=== PATIENT | female | born 1955 | race Caucasian/White ===

== ENCOUNTER 2022-09-29 17:20 | Outpatient (OUT) | payer MEDICARE, OTHER, SELFPAY ==
[2022-09-29 19:02] LABS: Eosinophils Absolute Auto 0.1 10^3/uL (0.0-0.7); Hematocrit 44.7 % (36.0-48.0); Hemoglobin 14.5 g/dL (12.0-16.0); Immature Granulocytes Abs Auto 0.01 10^3/uL (0.00-0.03); Immature Granulocytes Pct Auto 0.2 % (0.0-0.5); Lymphocytes Percent Auto 25.6 % (20.5-60.0); Mean Corpuscular HGB Conc 32.4 g/dL (29.9-35.2); Mean Corpuscular Hemoglobin 30.3 pg (26.7-34.0); Mean Corpuscular Volume 93.3 fL (81.0-99.0); Mean Platelet Volume 11.8 fL (9.5-13.5); Monocytes Absolute Auto 0.4 10^3/uL (0.3-0.8); Monocytes Percent Auto 8.6 % (1.7-12.0); Neutrophils Absolute Auto 2.5 10^3/uL (1.4-6.5); Neutrophils Percent Auto 62.6 % (43.0-75.0); Platelet Count 224 10^3/uL (150-450); Red Blood Count 4.79 10^6/uL (4.20-5.40); Red Cell Distribution Width 12.4 % (11.0-15.0); White Blood Count 4.1 10^3/uL (4.0-11.0)
[2022-09-29 21:10] LABS: Alanine Aminotransferase 20 U/L (14-59); Alkaline Phosphatase 73 U/L (46-116); Anion Gap 9.4; Aspartate Amino Transferase 17 U/L (15-37); BUN Creatinine Ratio 15.7; Bilirubin Total 0.7 mg/dL (0.2-1.0); Carbon Dioxide 26.9 mmol/L (21.0-32.0); Chloride 106 mmol/L (98-107); Estimated GFR (African America >60 (>=60); Estimated GFR (Non-African Ame >60 (>=60); Glucose 91 mg/dL (74-106); Potassium 4.3 mmol/L (3.5-5.1); Sodium 138 mmol/L (136-145); Thyroid Stimulating Hormone 2.318 uIU/mL (0.358-3.740)
== END 2022-09-29 17:21 | disposition home or self-care (01) ==
PROVIDERS: Visit Provider Family Medicine
DX: M19.90 Unspecified osteoarthritis, unspecified site (principal); F32.A Depression, unspecified
CPT/HCPCS: 36415; 80053; 84436; 84443; 85025

== ENCOUNTER 2023-08-08 19:48 | Outpatient (REF) | payer MEDICARE, OTHER, SELFPAY | END 2023-08-08 19:49 | disposition home or self-care (01) | LOC: LAB 19:48 | PROVIDERS: Visit Provider Obstetrics & Gynecology | DX: Z01.419 Encounter for gynecological examination (general) (routine) without abnormal findings (principal) | CPT/HCPCS: G0145 ==

== ENCOUNTER 2023-08-22 08:59 | Outpatient (OUT) | payer MEDICARE, OTHER, SELFPAY ==
--- NOTE | 2023-08-22 09:01 | MM_ITS ---
Patient Name: MARYCRUZ BROUSSARD MR#: [id number] : 1955 Exam Date: 08/22/2023 Ordering Doctor: DR Manny Barker . RADIOLOGY REPORT PROCEDURE: MM TOMOSYNTHESIS SCREENING BI COMPARISON: MG MAMM SCREEN 3D DELMA CAD, 08/04/2022. MG MAMM SCREEN 3D DELMA CAD, 09/15/2020. MG MAMM SCREEN DELMA W CAD, 12/08/2018. MG MAMM DELMA SCRN W CAD DIG, 03/16/2011. INDICATIONS: Screening Calculator Name NCI Breast Cancer Risk Assessment Tool 5 Year Breast Cancer Risk 1.20% Lifetime Breast Cancer Risk 4.20% Personal Breast Cancer No Personal Ovarian Cancer No Treatments None Family Cancers Mother with lung cancer at age 57; Father with breast cancer at age 76; Father with bladder/prostate cancer at age 76. LOCATION: [facility] [place] BREAST COMPOSITION: The breasts are heterogeneously dense,which may obscure small masses. FINDINGS: DIAGNOSTIC CATEGORY 1--NEGATIVE. RIGHT BREAST: No significant suspicious finding. No significant change has occurred. LEFT BREAST: No significant suspicious finding. No significant change has occurred. RECOMMENDATIONS: ROUTINE MAMMOGRAM AND CLINICAL EVALUATION IN 12 MONTHS. PLEASE NOTE: A NORMAL MAMMOGRAM DOES NOT EXCLUDE THE POSSIBILITY OF BREAST CANCER. A CLINICALLY SUSPICIOUS PALPABLE LUMP SHOULD BE BIOPSIED. Dictated by: Ramirez Beverly M.D. on 08/23/2023 at 14:26 Approved by: Ramirez Beverly M.D. on 08/23/2023 at 14:28
--- OUTSIDE RECORDS SUMMARY | 2023-08-22 09:21 | XMS_ITS | CCD ---
Author Organization [facility] Care Team Providers Care Cigar Roller Name Role Phone Jose Miguel Phillips Primary Care Physician EDMOND ., DR MITCHELL Admitting Unavailabl e KARASIK ., DR MITCHELL Attending Unavailabl e KARASIK ., DR MITCHELL Consulting Unavailabl e HELENA, DR GILLESPIE Primary Care Unavailable WATERFALL, DR ANTONY Maldonado Consulting Unavailable HELENA, DR GILLESPIE Consulting Unavailable HELENA, DR GILLESPIE Primary Care Unavailable HELENA, DR GILLESPIE Admitting Unavailable HELENA, DR GILLESPIE Attending Unavailable ZIEBBRENDAN QUICK Consulting Unavailable HELENA, DR GILLESPIE Attending Unavailable HELENA, DR GILLESPIE Consulting Unavailable HELENA, DR GILLESPIE Primary Care Unavailable HELENA, DR GILLESPIE Admitting Unavailable KARASIK ., DR MITCHELL Attending Unavailabl e KARASIK ., DR MITCHELL Consulting Unavailabl e KARASIK ., DR MITCHELL Admitting Unavailabl e JACQUELINE, DR GILLESPIE Primary Care Unavailable Jacqueline, DO Gillespie Primary Care Provider MD Jose Gutierrez Attending Provider [phone] Jose Miguel Phillips Primary Care Unavailable Jose Gutierrez Admitting Unavailable Jose Gutierrez Attending Unavailable NO FAMILY, PHYSICIAN Primary Care Unavailable Mario Chavez Admitting Unavailable Mario Chavez Attending Unavailable NA, CARLY T Attending Unavailable APLING, RIVAS B Referring Unavailable BLACKSTON, CARLY T Attending Unavailable APLING, RIVAS B Referring Unavailable BLACKSTON, CARLY T Attending Unavailable APLING, RIVAS B Referring Unavailable BLACKSTON, CARLY T Attending Unavailable APLING, RIVAS B Referring Unavailable CYNTHIA ALVARADO Attending Unavailable DANIELLE SANTORO Primary Care Physician Gio PECK Attending Unavailable DANIELLE SANTORO Primary Care Unavailable Gio PECK Admitting Unavailable Gio PECK Attending Unavailable DANIELLE SANTORO Primary Care Unavailable Gio PECK Admitting Unavailable Gio PECK Attending Unavailable Gio PECK Attending Unavailable Allergies Allergy Classification Reported Allergen(s) Allergy Type Date of Onset Reaction(s) Facility (1 source) No Known Medication Allergies; Translations: [No Known Medication Allergies] Propensity to adverse reactions (disorder) [facility] Repository Medications Current Medications Medication Drug Class(es) Dates Sig (Normalized) Sig (Original) alendronic acid 70 mg oral tablet (3 sources) Bisphosphonate Start: 08-25-2022 take 70 mg by mouth every week Alendronate Active 70 MG PO every week December 01, 2022 12:00am citalopram 20 mg oral tablet (4 sources) Serotonin Reuptake Inhibitor Start: 12-01-2022 take 20 mg by mouth once daily Citalopram Active 20 MG PO Daily December 01, 2022 12:00am Start: 12-08-2018 take 1 tablet by kody th once daily citalopram 10 mg Tab 10 mg = 1 tab(s), Oral, Daily Start Date: 12/08/18 Status: Ordered diclofenac sodium 50 mg delayed release oral tablet (1 source) Nonsteroidal Anti-inflammatory Drug Start: 12-08-2018 take 1 tablet by mouth twice daily Diclofenac 50mg Tab-DR 50 mg, Oral, BID Start Date: 12/08/18 Status: Ordered estradiol 1 mg oral tablet (5 sources) Estrogen Start: 08-25-2022 take 1 mg by mouth once daily Estradiol Active 1 MG PO Daily December 01, 2022 12:00am Start: 08-25-2022 estradiol 0.1 mg/g Vag Crm Refill(s) 0 Start Date: 08/25/22 Status: Ordered meloxicam 15 mg oral tablet (3 sources) Nonsteroidal Anti-inflammatory Drug Start: 08-25-2022 take 15 mg by mouth once daily Meloxicam Active 15 MG PO Daily December 01, 2022 12:00am sulfamethoxazole 800 mg / trimethoprim 160 mg oral tablet (1 source) Dihydrofolate Reductase Inhibitor Antibacterial, Sulfonamide Antimicrobial Start: 12-30-2021 End: 01-04-2022 Bactrim DS 800 mg-160 mg Tab 1 tab(s), Oral, BID for 5 day(s), 10 tab(s), Refill(s) 0, [facility]/pharmacy #[id number], 162, cm, 12/30/21 12:22:00 EDT, Height/Length Dosing, 73.5, kg, 02/05/20 7:42:00 EST, Weight Dosing Start Date: 12/30/21 Stop Date: 01/04/22 Status: Ordered Completed/Discontinued Medications Medication Drug Class(es) Dates Sig (Normalized) Sig (Original) ciprofloxacin 500 mg oral tablet (5 sources) Quinolone Antimicrobial Start: 08-01-2023 take 1 tablet by mouth once daily Cipro 500 mg Tab 500 mg = 1 tab(s), Oral, Daily, Take 1 tablet the day before the procedure and 1 tablet after the procedure, # 2 tab(s), Refills(s) 0, Pharmacy: [facility]/pharmacy #[id number], 162, cm, 08/17/23 7:56:00 EDT, Height/Length Dosing, 80, kg, 08/17/23 7:56:00 EDT, Weight Dosing Start Date: 08/17/23 Status: Ordered Start: 08-17-2021 take 1 tablet by kody th once daily Cipro 500 mg Tab 500 mg = 1 tab(s), Oral, Daily, Take 1 tablet the day before the procedure and 1 tablet after the procedure, # 2 tab(s), Refills(s) 0, Pharmacy: [facility]/pharmacy #[id number], 162, cm, 08/05/20 12:19:00 EDT, Height/Length Dosing, 73.5, kg, 02/05/20 7:42:00 EST,... Start Date: 08/17/21 Status: Ordered Problems Active Problems Problem Classification Problem Date Documented Da te Episodic/Chronic Cancer of bladder (3 sources) Malignant neoplasm, overlapping lesion of bladder 02-19-2019 Chronic Cancer of bladder (1 source) History of malignant neoplasm of bladder; Translations: [Personal history of malignant neoplasm of bladder] Onset: 08-17-2023 Episodic Cancer; other and unspecified primary (3 sources) History of bladder neoplasm 12-08-2018 Episodic Genitourinary symptoms and ill-defined conditions (6 sources) Genitourinary symptoms; Translations: [Unspecified symptoms and signs involving the genitourinary system] Onset: 12-30-2021 Episodic Immunizations and screening for infectious disease (1 source) Encounter for screening for human papillomavirus (HPV); Translations: [ENC SCREENING HUMAN PAPILLOMAVIRUS] Onset: 07-29-2022 Episodic Mood disorders (3 sources) Depressive disorder 12-08-2018 Chronic Osteoporosis (1 source) Age-related osteoporosis without current pathological fracture; Translations: [AGE-REL OSTEOPOR W/O CURR PATH FX] Onset: 08-11-2022 Chronic Other bone disease and musculoskeletal deformities (1 source) Other specified disorders of bone density and structure, unspecified site; Translations: [OTH D/O BONE DEN STRUCT UNS SITE] Onset: 08-11-2022 Episodic Other diseases of bladder and urethra (2 sources) Lesion of bladder 08-17-2023 Chronic Other diseases of bladder and urethra (1 source) Disorder of bladder; Translations: [Bladder disorder, unspecified] Onset: 08-17-2023 Chronic Other gastrointestinal disorders (1 source) Change in bowel habit; Translations: [Change in bowel habit] Onset: 12-01-2022 Episodic Other screening for suspected conditions (not mental disorders or infectious disease) (8 sources) Encounter for screening mammogram for malignant neoplasm of breast; Translations: [Encounter for screening for malignant neoplasm of cervix] Onset: 07-26-2022 Episodic Residual codes; unclassified (1 source) Asymptomatic menopausal state; Translations: [ASYMPTOMATIC MENOPAUSAL STATE] Onset: 08-11-2022 Episodic Residual codes; unclassified (1 source) Family history of malignant neoplasm of trachea, bronchus and lung; Translations: [FAM HX MALIG NEOPLSM TRACH BRON LNG] Onset: 08-11-2022 Episodic Residual codes; unclassified (1 source) Family history of malignant neoplasm of prostate; Translations: [FAMILY HX MALIG NEOPLASM PROSTATE] Onset: 08-11-2022 Episodic Residual codes; unclassified (1 source) Family history of malignant neoplasm of bladder; Translations: [FAM HX MALIGNANT NEOPLASM BLADDER] Onset: 08-11-2022 Episodic Unclassified (4 sources) COUGH, UNSPECIFIED; Translations: [COUGH, UNSPECIFIED] Onset: 10-13-2021 Unclassified (1 source) Irritable bowel syndrome without diarrhea; Translations: [Irritable bowel syndrome without diarrhea] Onset: 01-14-2023 Past or Other Problems Problem Classification Problem Date Documented Da te Episodic/Chronic Malaise and fatigue (1 source) Other fatigue; Translations: [OTHER FATIGUE] Onset: 10-13-2021 Episodic Other connective tissue disease (1 source) Myalgia, unspecified site; Translations: [MYALGIA UNSPECIFIED SITE] Onset: 10-13-2021 Episodic Other lower respiratory disease (5 sources) Shortness of breath; Translations: [SHORTNESS OF BREATH] Onset: 10-09-2021 Episodic Other lower respiratory disease (1 source) Other forms of dyspnea; Translations: [OTHER FORMS OF DYSPNEA] Onset: 11-07-2021 Episodic Unclassified (1 source) COUGH, UNSPECIFIED; Translations: [COUGH, UNSPECIFIED] Onset: 11-04-2021 Results Test Name Value Interpretation Reference Range Facility Consent for Procedure/Surger yon 08-19-2023 Consent for Procedure/Surgery [id number]. 00TIFF [facility] Ambulatory Visit Summaryon 0 08-17-2023 Ambulatory Visit Summary STACIA PARK :1955 Visit Date:08/17/2023 Ambulatory Visit Instructions Your Diagnosis Personal history of bladder cancer Lesion of bladder Your Care Team Attending Physician - Gio PECK MD Primary Care Physician - DANIELLE SANTORO This Is Your Medications List ciprofloxacin (Cipro 500 mg Tab) Contact prescribing physician if questions or concerns alendronate (alendronate 70 mg Tab) citalopram (citalopram 10 mg Tab) estradiol (estradiol 1 mg Tab) estradiol topical (estradiol 0.1 mg/g Vag Crm) meloxicam (meloxicam 15 mg Tab) Procedures Performed Flexible cystoscope (08/17/2023), Cystoscopy (08/25/2022), Cystoscopy (09/01/2021), Cystoscopy (02/05/2020), Cystoscopy (08/21/2019), Instillation of BCG into the bladder (07/24/2018), Cystoscopy (05/01/2018), Laser bladder lesion therapy (08/23/2017), Cystoscopy and transurethral resection of bladder tumour (05/20/2016), Appendectomy, Colonoscopy, Hysterectomy, Tubal ligation. Discharge Vitals Temperature (Temporal Artery) 37 ?C Heart Rate (Peripheral) 71 Respiratory Rate 16 Blood Pressure 139/82 Height 162 cm Height 64 in Weight 80 kg Weight 176 lb BMI 30.48 What to do next You Need to Schedule the Following Appointments Follow Up with MASSIMO MEDEROS, SHELDON Maya When: Where: [facility] [address], [place] [address]- Medications What How Much When Instructions Unchanged ciprofloxacin (Cipro 500 mg Tab) 1 Tablets By Mouth Every day Take 1 tablet the day before the procedure and 1 tablet after the procedure Unchanged alendronate (alendronate 70 mg Tab) Contact prescribing physician if questions or concerns Unchanged citalopram (citalopram 10 mg Tab) 1 Tablets By Mouth Every day Contact prescribing physician if questions or concerns Unchanged estradiol (estradiol 1 mg Tab) Contact prescribing physician if questions or concerns Unchanged estradiol topical (estradiol 0.1 mg/ g Vag Crm) Contact prescribing physician if questions or concerns Unchanged meloxicam (meloxicam 15 mg Tab) Contact prescribing physician if questions or concerns Medications and Immunizations Administered Given lidocaine Top 2% Gel w/Appl 6 mL, 6 mL, Topical. For: Personal history of bladder cancer Allergies No Known Medication Allergies Problems Ongoing - Any problem that you are currently receiving treatment for. Cancer of overlapping sites of bladder Depression History of UTI Lesion of bladder Microscopic hematuria Personal history of bladder cancer Patient Survey You may receive a survey via text or e-mail asking about your office visit. Please share your experience with us by completing your survey. We appreciate your feedback and thank you for choosing us for your care. Education Materials Cancer Screening for Women A cancer screening is a test or exam that checks for cancer. Your health care provider will recommend specific cancer screenings based on your age, medical history (including risk factors), and family history of cancer. Work with your health care provider to create a cancer screening schedule that protects your health. Who should have screening? All women should be considered for screening of certain cancers, including breast cancer, cervical cancer, colorectal cancer, and skin cancer. Your health care provider may recommend screenings for other types of cancer if: ? You had cancer before. ? You have a family member with cancer. ? You have abnormal genes that could increase the risk of cancer. ? You have risk factors for certain cancers, such as current or past use of tobacco products, or being overweight. When you should be screened for cancer depends on: ? Your age. ? Your medical history and your family's medical history. ? Certain lifestyle factors, such as smoking or other use of tobacco products. ? Environmental exposure, such as to asbestos. How is screening done? Breast cancer Breast cancer screening is done with a test that takes images of breast tissue (mammogram). Here are some screening guidelines for women at average risk: ? When you are age 40?44, you will be given the choice to start having mammograms. ? When you are age 45?54, you should have a mammogram every year. ? You may start having mammograms before age 45 if you have risk factors for breast cancer, such as having an immediate family member with breast cancer. ? At age 55 or older, you should have a mammogram every 1?2 years for as long as you are in good health and have a life expectancy of 10 years or longer. ? It is important to know what your breasts look and feel like so you can report any changes to your health care provider. Cervical cancer ? All women at average risk should be considered for screening for cervical cancer starting no later than age 25 and continuing until age 65. Screening should not begin (more content not included)... Normal [facility] Patient Educationon 08-17-19 Patient Education Oncology Cancer Screening for Women A cancer screening is a test or exam that checks for cancer. Your health care provider will recommend specific cancer screenings based on your age, medical history (including risk factors), and family history of cancer. Work with your health care provider to create a cancer screening schedule that protects your health. Who should have screening? All women should be considered for screening of certain cancers, including breast cancer, cervical cancer, colorectal cancer, and skin cancer. Your health care provider may recommend screenings for other types of cancer if: ? You had cancer before. ? You have a family member with cancer. ? You have abnormal genes that could increase the risk of cancer. ? You have risk factors for certain cancers, such as current or past use of tobacco products, or being overweight. When you should be screened for cancer depends on: ? Your age. ? Your medical history and your family's medical history. ? Certain lifestyle factors, such as smoking or other use of tobacco products. ? Environmental exposure, such as to asbestos. How is screening done? Breast cancer Breast cancer screening is done with a test that takes images of breast tissue (mammogram). Here are some screening guidelines for women at average risk: ? When you are age 40?44, you will be given the choice to start having mammograms. ? When you are age 45?54, you should have a mammogram every year. ? You may start having mammograms before age 45 if you have risk factors for breast cancer, such as having an immediate family member with breast cancer. ? At age 55 or older, you should have a mammogram every 1?2 years for as long as you are in good health and have a life expectancy of 10 years or longer. ? It is important to know what your breasts look and feel like so you can report any changes to your health care provider. Cervical cancer ? All women at average risk should be considered for screening for cervical cancer starting no later than age 25 and continuing until age 65. Screening should not begin earlier than age 21. You will have tests every 3?5 years, depending on your results and the type of screening test. Talk with your health care provider about which screening test is right for you and how often you should be screened. ? Cervical cancer screening is done with an HPV (human papillomavirus) test to identify the virus that causes cervical cancer. To perform the test, a health care provider takes a swab of cells from yourcervix during a pelvic exam. This test may be performed along with a Pap test. This testchecks for abnormalities in the lowest part of the uterus (cervix). ? If you have had the HPV vaccine, you will still be screened for cervical cancer and follow normal screening recommendations. You do not need to be screened for cervical cancer if any of the following apply to you: ? You are older than age 65 and you have had normal screening tests in the past 10 years with no serious cervical precancer or cancer in the last 25 years. ? Your cervix and uterus have been removed, and you have never had cervical cancer or abnormal cells that could become cancer (precancerous cells). Colorectal cancer All adults should have screenings starting at age 45 and continuing until age 75. Your health care provider may recommend screening before age 45. You will have tests every 1?10 years, depending on your results and the type of screening test. People at increased risk should start screening at an earlier age. Talk with your health care provider about which screening test is right for you and how often you should be screened. Colorectal cancer screening looks for cancer or for growths called polyps that often form before cancer starts. Tests to look for cancer or polyps include: ? Colonoscopy or flexible sigmoidoscopy. For these procedures, a flexible tube with a small camera is inserted into the rectum. ? CT colonography. This test uses X-rays and a contrast dye to check the colon for polyps. If a polyp is found, you may need to have a colonoscopy so the polyp can be located and removed. Tests to look for cancer in the stool (feces) include: ? Guaiac-based fecal occult blood test (FOBT). This test can find blood in stool. It can be done at home with a kit. ? Fecal immunochemical test (FIT). This test can find blood in stool. For this test, you will need to collect stool samples at home. ? Stool DNA test. This test looks for blood in stool and any changes in DNA that can lead to colon cancer. For this test, you will need to collect a stool sample at home and send it to a lab. Endometrial cancer There is no standard screening test for endometrial cancer, and women at average risk do not routinely need to have this screening. Talk with your health care provider about whether screening is right for you. If it is, this screening is performed through: ? Endometrial tissue b (more content not included)... Normal [facility] Urology Office/Clinic Noteon 08-17-2023 Urology Office/Clinic Note Chief Complaint Pt is here for cystoscopy HPI Staff Cysto ABX TAKEN History of Present Illness Tests reviewed: reviewed none I have reviewed the previous health record information and history for this patient from Dr. Peck. I have reviewed and verified the staff HPI to be accurate for this encounter. There have been no associated fever, chills, flank pain, or blood in the urine. Denies any urinary infections since last encounter. Review of Systems PHQ Score Initial Depression Screen Score: 0 SCORE ROS - Provider Constitutional: denies weight loss, denies hot flashes. Eyes: denies eye problems. Gastrointestinal: denies nausea, denies vomiting. Cardiovascular: denies chest pain or angina. Integumentary: no dryness Musculoskeletal: denies musculoskeletal symptoms. ENMT: denies otolaryngeal symptoms. Respiratory: no shortness of breath. Heme/Lymph: denies easy bleeding tendency, denies easy bruising tendency. Psychiatric: no confusion, no anxiety. Genitourinary: See HPI. Physical Exam Vitals & Measurements T: 37 ?C(Temporal Artery) HR: 71(Peripheral) RR: 16 BP: 139/82 HT: 64 in HT: 162 cm WT: 80 kg WT: 176 lb BMI: 30.48 General Appearance: alert , no acute distress, well nourished, well developed female. Genitourinary: bladder nonpalpable, no flank pain. Procedure Operative Information Anesthesia Type: Local Procedure: Local Cystoscopy Complications: None Surgical risks, benefits, details of the procedure have been explained to the patient. Full informed consent has been obtained. Intraoperative Information Prepped: Patient is brought back to the endoscopy suite. Patient is placed in modified dorso/lithotomy position. Patient prepped in the usual fashion with Betadine solution. 2% Xylocaine Jelly is placed per Urethra. After waiting several minutes, the Cystoscope is introduced. The Urethra is: Normal The Bladder: _No papillary tumors but on the floor adjacent to resection site on the right are four tiny flat red areas extending from tiny blood vessels, ?early tumors?, Trabeculated: Mild (1) The Ureteral orifices: Show efflux of clear urine Specimens Removed: Voided specimen sent for FISH and Cytology test Removal: Cystoscope is removed. The patient tolerated it well. Postoperative Information Patient is discharged home with antibiotic coverage. Follow up arranged. Assessment/Plan 1. Personal history of bladder cancer (Z85.51: Personal history of malignant neoplasm of bladder) S/p original TURBT 05/20/16 - Noninvasive low grade papillary urothelial carcinoma. Chronic cystitis. S/p Evolve laser of bladder 08/23/17 - Non-invasive low grade papillary urothelial carcinoma. S/p BCG #3/3 02/19/19. Last surveillance cysto 08/25/22. Pt had IO cysto to check for bladder tumor recurrence without complications today. Pt took prophylactic abx prior to procedure. Will send voided specimen for FISH/cytol and call pt if positive. 2. Lesion of bladder (N32.9: Bladder disorder, unspecified) See procedure section. Follow up 4 mos surveillance cysto/bt ck/FISH/cytol or sooner if needed. Pt understands and agrees with plan. Follow-up With When Contact Information MASSIMO MEDEROS, Gio Ryan, [facility] [address] , [place] [address]- Additional Instructions: 4 mos cysto Patient Education Cancer Screening for Women I, Sheree Cox, personally scribed for Dr. Peck on 08/17/2023 08:12:37. . Documentation recorded by the scribe, Sheree Cox, accurately reflects the services(s) I performed and decisions made by me. Authenticated by Dr. Peck on 08/17/2023 08:14:48. Problem List/Past Medical History Ongoing Cancer of overlapping sites of bladder Depression History of UTI Lesion of bladder Microscopic hematuria Personal history of bladder cancer Historical No qualifying data Procedure/Surgical History Flexible cystoscope (08/17/2023), Cystoscopy (08/25/2022), Cystoscopy (09/01/2021), Cystoscopy (02/05/2020), Cystoscopy (08/21/2019), Instillation of BCG into the bladder (07/24/2018), Cystoscopy (05/01/2018), Laser bladder lesion therapy (08/23/2017), Cystoscopy and transurethral resection of bladder tumour (05/20/2016), Appendectomy, Colonoscopy, Hysterectomy, Tubal ligation. Medications alendronate 70 mg Tab Cipro 500 mg Tab, 500 mg= 1 tab(s), Oral, Daily citalopram 10 mg Tab, 10 mg= 1 tab(s), Oral, Daily estradiol 0.1 mg/g Vag Crm estradiol 1 mg Tab meloxicam 15 mg Tab Allergies No Known Medication Allergies Social History Alcohol - Low Risk, 08/21/2019 Current, 1-2 times per week, 02/05/2019 Substance Abuse - Denies Substance Abuse, 08/21/2019 Tobacco - Denies Tobacco Use, 08/21/2019 Never (less than 100 in lifetime) Tobacco Use:. Never Smokeless Tobacco Use:., 08/17/2023 Family History Primary malignant neoplasm of bladder: Father. Primary malignant neoplasm of f (more content not included)... Normal [facility] Comment on above: Result Comment: Elec tronically Signed By: Gio PECK MD\.br\Date and Time Signed: 08/17/23 08:14 EDT\.br\Electronically Co-Signed By: Sheree Cox.br\Date and Time Co-Signed: 08/17/23 08:13 EDT Reminderson 07-13-2023 Reminders - From: Tiffanie Carroll To: [facility] - Recalls Peck; Sent: 07/13/2023 10:05:12 EDT Show up: 07/03/2024 10:05:00 EDT Subject: Cysto/FISH/cytol Due Date/Time: 07/23/2024 10:05:00 EDT Reminder/Recall Patient needs sched for 1 year Cysto/FISH/cytol (bt ck) August 2024 [facility] Hospital Reminders - From: Tiffanie Carroll To: EU - Recalls Peck; Cc: Tiffanie Carroll; Sent: 08/27/2022 08:36:40 EDT Show up: 07/04/2023 08:36:00 EDT Subject: Cysto/FISH/cytol Due Date/Time: 07/25/2023 08:36:00 EDT Reminder/Recall Patient is due in August 2023 for 1 year cysto/fish/cytol (bt ck) l/m on vm.LG l/m on vm.LG Pt called back. Sched for 08/17/23 in [place] office. LG Normal [facility] Complete Blood Count Auto Di ffon 01-14-2023 Basophils (Bld) [#/Vol] 0.0 10*3/uL Normal 0.0-0.2 [facility] Comment on above: Order Comment: Reaso n for Exam IBS (irritable bowel syndrome) Result Comment: PERF ORMED BY: [place] [address] PATHOLOGIST NUT SHELLER CARY GARCIA M.D. Performed By: #### C BC, CMP #### [facility] [address] [place] [address] [place] Basophils/100 WBC (Bld) 0.9 % Normal . [facility] Comment on above: Order Comment: Reaso n for Exam IBS (irritable bowel syndrome) Performed By: #### C BC, CMP #### [facility] [address] [place] [address] [place] Eosinophils (Bld) [#/Vol] 0.1 10*3/uL Normal 0.0-0.45 [facility] Comment on above: Order Comment: Reaso n for Exam IBS (irritable bowel syndrome) Performed By: #### C BC, CMP #### [facility] [address] Eosinophils/100 WBC (Bld) 2.2 % Normal . [facility] Comment on above: Order Comment: Reaso n for Exam IBS (irritable bowel syndrome) Performed By: #### C BC, CMP #### [address] Erythrocyte distribution width (RBC) [Ratio] 13.7 % Normal 11.9-15.3 [facility] Comment on above: Order Comment: Reaso n for Exam IBS (irritable bowel syndrome) Performed By: #### C BC, CMP #### [address] Hematocrit (Bld) [Volume fraction] 39.1 % Normal 34.0-46.4 [facility] Comment on above: Order Comment: Reaso n for Exam IBS (irritable bowel syndrome) Performed By: #### C BC, CMP #### [address] Hemoglobin (Bld) [Mass/Vol] 13.1 g/dL Normal 11.8-15.4 [facility] Comment on above: Order Comment: Reaso n for Exam IBS (irritable bowel syndrome) Performed By: #### C BC, CMP #### [place] [address] [place] Lymphocytes (Bld) [#/Vol] 0.9 10*3/uL Low 1.00-4.8 [facility] Comment on above: Order Comment: Reaso n for Exam IBS (irritable bowel syndrome) Performed By: #### C BC, CMP #### [place] [address] [place] Lymphocytes/100 WBC (Bld) 20.5 % Normal . [facility] Comment on above: Order Comment: Reaso n for Exam IBS (irritable bowel syndrome) Performed By: #### C BC, CMP #### [facility] [address] MCH (RBC) [Entitic mass] 30.5 pg Normal 24.7-34.3 [facility] Comment on above: Order Comment: Reaso n for Exam IBS (irritable bowel syndrome) Performed By: #### C BC, CMP #### [facility] [address] MCV (RBC) [Entitic vol] 90.6 fL Normal 80-100 [facility] Comment on above: Order Comment: Reaso n for Exam IBS (irritable bowel syndrome) Performed By: #### C BC, CMP #### [address] Mean Corpuscular HGB Conc 33.6 g/dL Normal 32.0-35.0 [facility] Comment on above: Order Comment: Reaso n for Exam IBS (irritable bowel syndrome) Performed By: #### C BC, CMP #### [place] [address] [place] Monocytes (Bld) [#/Vol] 0.4 10*3/uL Normal 0.0-0.8 [facility] Comment on above: Order Comment: Reaso n for Exam IBS (irritable bowel syndrome) Performed By: #### C BC, CMP #### [place] [address] [place] Monocytes/100 WBC (Bld) 8.7 % Normal . [facility] Comment on above: Order Comment: Reaso n for Exam IBS (irritable bowel syndrome) Performed By: #### C BC, CMP #### [place] [address] [place] Neutrophils (Bld) [#/Vol] 3.1 10*3/uL Normal 1.8-7.7 [facility] Comment on above: Order Comment: Reaso n for Exam IBS (irritable bowel syndrome) Performed By: #### C BC, CMP #### [place] [address] [place] Neutrophils/100 WBC (Bld) 67.7 % Normal . [facility] Comment on above: Order Comment: Reaso n for Exam IBS (irritable bowel syndrome) Performed By: #### C BC, CMP #### [facility] [address] NRBC% 0.2 /100{WBC} Normal 0-0.5 [facility] Comment on above: Order Comment: Reaso n for Exam IBS (irritable bowel syndrome) Performed By: #### C BC, CMP #### [facility] [address] Platelet mean volume (Bld) [Entitic vol] 9.5 fL Normal 6.3-10.7 [facility] Comment on above: Order Comment: Reaso n for Exam IBS (irritable bowel syndrome) Performed By: #### C BC, CMP #### [facility] [address] Platelets (Bld) [#/Vol] 230 10*3/uL Normal 150-450 [facility] Comment on above: Order Comment: Reaso n for Exam IBS (irritable bowel syndrome) Performed By: #### C BC, CMP #### [facility] [address] RBC (Bld) [#/Vol] 4.31 10*6/uL Normal 3.60-5.00 [facility] Comment on above: Order Comment: Reaso n for Exam IBS (irritable bowel syndrome) Performed By: #### C BC, CMP #### [facility] [address] WBC (Bld) [#/Vol] 4.5 10*3/uL Normal 3.8-11.6 [facility] Comment on above: Order Comment: Reaso n for Exam IBS (irritable bowel syndrome) Performed By: #### C BC, CMP #### [facility] [address] Comprehensive Metabolic Pane yuridia 01-14-2023 Albumin [Mass/Vol] 4.3 g/dL Normal 3.5-5.7 [facility] Comment on above: Order Comment: Reaso n for Exam IBS (irritable bowel syndrome) Performed By: #### C BC, CMP #### [facility] [address] [place] [address] Albumin/Globulin [Mass ratio] 2.0 {ratio} Normal [facility] Comment on above: Order Comment: Reaso n for Exam IBS (irritable bowel syndrome) Performed By: #### C BC, CMP #### [address] ALP [Catalytic activity/Vol] 51 U/L Normal 34-104 [facility] Comment on above: Order Comment: Reaso n for Exam IBS (irritable bowel syndrome) Result Comment: PERF ORMED BY: [place] [address] PATHOLOGIST NUT SHELLER CARY GARCIA M.D. Performed By: #### C BC, CMP #### [address] ALT [Catalytic activity/Vol] 21 U/L Normal 7-52 [facility] Comment on above: Order Comment: Reaso n for Exam IBS (irritable bowel syndrome) Performed By: #### C BC, CMP #### [address] Anion gap [Moles/Vol] 8.5 mmol/L Normal 6.0-15.0 [facility] Comment on above: Order Comment: Reaso n for Exam IBS (irritable bowel syndrome) Performed By: #### C BC, CMP #### [address] AST [Catalytic activity/Vol] 18 U/L Normal 13-39 [facility] Comment on above: Order Comment: Reaso n for Exam IBS (irritable bowel syndrome) Performed By: #### C BC, CMP #### [address] Bilirubin [Mass/Vol] 0.6 mg/dL Normal 0.3-1.0 [facility] Comment on above: Order Comment: Reaso n for Exam IBS (irritable bowel syndrome) Performed By: #### C BC, CMP #### [facility] [address] Calcium [Mass/Vol] 9.2 mg/dL Normal 8.6-10.3 [facility] Comment on above: Order Comment: Reaso n for Exam IBS (irritable bowel syndrome) Performed By: #### C BC, CMP #### [facility] [address] [place] [address] [place] Chloride [Moles/Vol] 107 mmol/L Normal 98-107 [facility] Comment on above: Order Comment: Reaso n for Exam IBS (irritable bowel syndrome) Performed By: #### C BC, CMP #### [facility] [address] CO2 [Moles/Vol] 30.2 mmol/L Normal 21.0-31.0 [facility] Comment on above: Order Comment: Reaso n for Exam IBS (irritable bowel syndrome) Performed By: #### C BC, CMP #### [facility] [address] Creatinine [Mass/Vol] 0.77 mg/dL Normal 0.60-1.20 [facility] Comment on above: Order Comment: Reaso n for Exam IBS (irritable bowel syndrome) Performed By: #### C BC, CMP #### [facility] [address] [place] [address] [place] GFR/1.73 sq M.predicted MDRD (S/P/Bld) [Vol rate/Area] mL/min/{1.73_m2} [facility] Comment on above: Order Comment: Reaso n for Exam IBS (irritable bowel syndrome) Performed By: #### C BC, CMP #### [facility] [address] [place] [address] [place] Globulin (S) [Mass/Vol] 2.2 g/dL [facility] Comment on above: Order Comment: Reaso n for Exam IBS (irritable bowel syndrome) Performed By: #### C BC, CMP #### [facility] [address] Glucose [Mass/Vol] 90 mg/dL Normal 70-100 [facility] Comment on above: Order Comment: Reaso n for Exam IBS (irritable bowel syndrome) Result Comment: [place] Glucose Reference Range is dependent on time and content of last meal. Glucose of more than 200 mg/dL in a nonstressed, ambulatory subject supports the diagnosis of Diabetes Mellitus. ADA recommended reference range Performed By: #### C BC, CMP #### [facility] [address] Potassium [Moles/Vol] 4.7 mmol/L Normal 3.5-5.1 [facility] Comment on above: Order Comment: Reaso n for Exam IBS (irritable bowel syndrome) Performed By: #### C BC, CMP #### [facility] [address] Protein [Mass/Vol] 6.5 g/dL Normal 6.4-8.9 [facility] Comment on above: Order Comment: Reaso n for Exam IBS (irritable bowel syndrome) Performed By: #### C BC, CMP #### [facility] [address] [place] [id number] [place] Sodium [Moles/Vol] 141 mmol/L Normal 136-145 [facility] Comment on above: Order Comment: Reaso n for Exam IBS (irritable bowel syndrome) Performed By: #### C BC, CMP #### [facility] [address] [place] [id number] [place] Urea nitrogen [Mass/Vol] 17 mg/dL Normal 7-25 [facility] Comment on above: Order Comment: Reaso n for Exam IBS (irritable bowel syndrome) Performed By: #### C BC, CMP #### [facility] [address] [place] [id number] [place] U[facility]Vysion Fish and Urine Cyt o ([facility])on 09-01-2022 [facility] & UC Diagnosis Info Invalid Interpretation Code [facility] Comment on above: Result Comment: A:Ur ine,Urine:Voided Diagnosis Summary - No evidence of papillary urothelial neoplasm identified. Adequate cellularity for evaluation. Diagnosis Summary - The U[facility] FISH study detected normal copy numbers for chromosomes 3, 7, 17, and 9p21. No evidence of aneuploidy for chromosomes 3, 7, or 17 or deletion of the 9p21 locus was found in cells present in this specimen. This test does not rule out the possibility of a low grade non-invasive papillary urothelial carcinoma. These findings should be correlated with cytology and cystoscopy results.* CPT 94353, 47185. Microscopic Notes - Microscopic Notes - Abnormal cells 9p21 deletions: Abnormal cells aneploid events: Total cells analyzed: Hematuria: Gross Description Site ID:A color Light Yellow fixative Alcohol Received 110 mls of clear light yellow fluid with the patient's name and, Urine on the vial. Electronically signed by : on: 09/01/2022 10:58:42 Performed By: #### 1 [id number] #### [facility] [address] [place] [address] Consent for Procedure/Surger yon 08-26-2022 Consent for Procedure/Surgery [id number] Normal [facility] Patient Educationon 08-26-19 23 Patient Education Oncology Cancer Screening for Women A cancer screening is a test or exam that checks for cancer. Your health care provider will recommend specific cancer screenings based on your age, medical history (including risk factors), and family history of cancer. Work with your health care provider to create a cancer screening schedule that protects your health. Who should have screening? All women should be considered for screening of certain cancers, including breast cancer, cervical cancer, colorectal cancer, and skin cancer. Your health care provider may recommend screenings for other types of cancer if: ? You had cancer before. ? You have a family member with cancer. ? You have abnormal genes that could increase the risk of cancer. ? You have risk factors for certain cancers, such as current or past use of tobacco products, or being overweight. When you should be screened for cancer depends on: ? Your age. ? Your medical history and your family's medical history. ? Certain lifestyle factors, such as smoking or other use of tobacco products. ? Environmental exposure, such as to asbestos. How is screening done? Breast cancer Breast cancer screening is done with a test that takes images of breast tissue (mammogram). Here are some screening guidelines for women at average risk: ? When you are age 40?44, you will be given the choice to start having mammograms. ? When you are age 45?54, you should have a mammogram every year. ? You may start having mammograms before age 45 if you have risk factors for breast cancer, such as having an immediate family member with breast cancer. ? At age 55 or older, you should have a mammogram every 1?2 years for as long as you are in good health and have a life expectancy of 10 years or longer. ? It is important to know what your breasts look and feel like so you can report any changes to your health care provider. Cervical cancer ? All women at average risk should be considered for screening for cervical cancer starting no later than age 25 and continuing until age 65. Screening should not begin earlier than age 21. You will have tests every 3?5 years, depending on your results and the type of screening test. Talk with your health care provider about which screening test is right for you and how often you should be screened. ? Cervical cancer screening is done with an HPV (human papillomavirus) test to identify the virus that causes cervical cancer. To perform the test, a health care provider takes a swab of cells from yourcervix during a pelvic exam. This test may be performed along with a Pap test. This testchecks for abnormalities in the lowest part of the uterus (cervix). ? If you have had the HPV vaccine, you will still be screened for cervical cancer and follow normal screening recommendations. You do not need to be screened for cervical cancer if any of the following apply to you: ? You are older than age 65 and you have had normal screening tests in the past 10 years with no serious cervical precancer or cancer in the last 25 years. ? Your cervix and uterus have been removed, and you have never had cervical cancer or abnormal cells that could become cancer (precancerous cells). Colorectal cancer All adults should have screenings starting at age 45 and continuing until age 75. Your health care provider may recommend screening before age 45. You will have tests every 1?10 years, depending on your results and the type of screening test. People at increased risk should start screening at an earlier age. Talk with your health care provider about which screening test is right for you and how often you should be screened. Colorectal cancer screening looks for cancer or for growths called polyps that often form before cancer starts. Tests to look for cancer or polyps include: ? Colonoscopy or flexible sigmoidoscopy. For these procedures, a flexible tube with a small camera is inserted into the rectum. ? CT colonography. This test uses X-rays and a contrast dye to check the colon for polyps. If a polyp is found, you may need to have a colonoscopy so the polyp can be located and removed. Tests to look for cancer in the stool (feces) include: ? Guaiac-based fecal occult blood test (FOBT). This test can find blood in stool. It can be done at home with a kit. ? Fecal immunochemical test (FIT). This test can find blood in stool. For this test, you will need to collect stool samples at home. ? Stool DNA test. This test looks for blood in stool and any changes in DNA that can lead to colon cancer. For this test, you will need to collect a stool sample at home and send it to a lab. Endometrial cancer There is no standard screening test for endometrial cancer, and women at average risk do not routinely need to have this screening. Talk with your health care provider about whether screening is right for you. If it is, this screening is performed through: ? Endometrial tissue b (more content not included)... Normal [facility] UroVysion Fish and Urine Cyt o ( Labs)on 08-25-2022 [facility] Method of Extraction Voided Normal [facility] Comment on above: Performed By: #### 1 [id number] #### [facility] [address] [place] [address] [facility] Number of Jars 1 Invalid Interpretation Code [facility] Comment on above: Performed By: #### 1 [id number] #### [facility] [address] [place] [address] [facility] Specimen Urine Normal [facility] Comment on above: Performed By: #### 1 [id number] #### [facility] [address] [place] [address] [facility] Type of Service Technical Only Normal [facility] Comment on above: Performed By: #### 1 [id number] #### [facility] [address] [facility] [place] [address] Urology Office/Clinic Noteon 08-25-2022 Urology Office/Clinic Note Chief Complaint 1 year bladder check, hx of bladder cancer HPI Staff Stacia is a 67 y.o. female here for cystoscopy. History of Present Illness Tests reviewed: reviewed none. I have reviewed the previous health record information and history for this patient from Dr. Peck. I have reviewed and verified the staff HPI to be accurate for this encounter. There have been no associated fever, chills, flank pain, or blood in the urine. Denies any urinary infections since last encounter. Review of Systems PHQ Score Initial Depression Screen Score: 0 ROS - Provider Constitutional: denies weight loss, denies hot flashes. Eyes: denies eye problems. Gastrointestinal: denies nausea, denies vomiting. Cardiovascular: denies chest pain or angina. Integumentary: no dryness Musculoskeletal: denies musculoskeletal symptoms. ENMT: denies otolaryngeal symptoms. Respiratory: no shortness of breath. Heme/Lymph: denies easy bleeding tendency, denies easy bruising tendency. Psychiatric: no confusion, no anxiety. Genitourinary: See HPI. Physical Exam Vitals & Measurements HR: 72(Peripheral) RR: 16 BP: 126/79 HT: 64 in HT: 162 cm WT: 80 kg WT: 176 lb BMI: 30.48 General Appearance: alert , no acute distress, well nourished, well developed female. Genitourinary: bladder nonpalpable, no flank pain. Procedure Operative Information Anesthesia Type: Local Procedure: Local Cystoscopy Complications: None Surgical risks, benefits, details of the procedure have been explained to the patient. Full informed consent has been obtained. Intraoperative Information Prepped: Patient is brought back to the endoscopy suite. Patient is placed in modified dorso/lithotomy position. Patient prepped in the usual fashion with Betadine solution. 2% Xylocaine Jelly is placed per Urethra. After waiting several minutes, the Cystoscope is introduced. The Urethra is: Normal The Bladder: _No tumors or stones. Scars well healed. Trabeculated: None (0) The Ureteral orifices: Show efflux of clear urine Specimens Removed: Voided specimen sent for FISH and Cytology test Removal: Cystoscope is removed. The patient tolerated it well. Postoperative Information Patient is discharged home with antibiotic coverage. Follow up arranged. Assessment/Plan 1. Personal history of bladder cancer (Z85.51: Personal history of malignant neoplasm of bladder) S/p Evolve laser of bladder - Path showed non-invasive low grade papillary urothelial carcinoma. Cysto/FISH/cytol 09/01/21 - All neg. Pt had IO cysto to check for bladder tumor recurrence without complications today. Will send voided specimen for FISH/cytol and call pt if positive. Cysto today was _ for recurrence. Follow up 1 yr cysto/FISH/cytol/bt ck or sooner if needed. Pt understands and agrees with plan. 2. History of UTI (Z87.440: Personal history of urinary (tract) infections) Using estradiol. Follow-up With When Contact Information MASSIMO MEDEROS, Gio Ryan, [facility] [address], [place] [address]- Additional Instructions: 1 yr cysto/FISH/cytol/bt ck Patient Education Cancer Screening for Women I, Sheree Cox, personally scribed for Dr. Peck on 08/25/2022 07:53:17. . Documentation recorded by the scribe, Sheree Cox, accurately reflects the services(s) I performed and decisions made by me. Authenticated by Dr. Peck on 08/25/2022 07:54:42. Problem List/Past Medical History Ongoing Cancer of overlapping sites of bladder Depression History of UTI Microscopic hematuria Personal history of bladder cancer Historical No qualifying data Procedure/Surgical History Cystoscopy (08/25/2022), Cystoscopy (09/01/2021), Cystoscopy (02/05/2020), Cystoscopy (08/21/2019), Instillation of BCG into the bladder (07/24/2018), Cystoscopy (05/01/2018), Laser bladder lesion therapy (08/23/2017), Cystoscopy and transurethral resection of bladder tumour (05/20/2016), Appendectomy, Colonoscopy, Hysterectomy, Tubal ligation. Medications alendronate 70 mg Tab Cipro 500 mg Tab, 500 mg= 1 tab(s), Oral, Daily citalopram 10 mg Tab, 10 mg= 1 tab(s), Oral, Daily estradiol 0.1 mg/g Vag Crm estradiol 1 mg Tab meloxicam 15 mg Tab Allergies No Known Medication Allergies Social History Alcohol - Low Risk, 08/21/2019 Current, 1-2 times per week, 02/05/2019 Substance Abuse - Denies Substance Abuse, 08/21/2019 Tobacco - Denies Tobacco Use, 08/21/2019 Never (less than 100 in lifetime) Tobacco Use:., 12/30/2021 Family History Primary malignant neoplasm of bladder: Father. Primary malignant neoplasm of female breast: Mother. Primary malignant neoplasm of lung: Father. Primary malignant neoplasm of prostate: Father. Immunizations Vaccine Date Status SARS-CoV-2 mRNA (tozinameran 5y-11y) vac 03/16/2021 Recorded SARS-CoV-2 mRNA (tozinameran 5y-11y) vac 08/19/2020 Recorded SARS-CoV-2 mR (more content not included)... Normal [facility] Comment on above: Result Comment: Elec tronically Signed By: Gio PECK MD\.br\Date and Time Signed: 08/25/22 07:54 EDT\.br\Electronically Co-Signed By: Sheree Cox\.br\Date and Time Co-Signed: 08/25/22 07:53 EDT MG MAMM SCREEN 3D DELMA CADon 08-04-2022 MG MAMM SCREEN 3D DELMA CAD Patient: STACIA PARK Exam Date: 08/04/2022 : 1955 Gender:F Ordering : DR STEPHEN PRUITT . Admission #: [id number] Family : Order #: [id number] CLICK HERE TO VIEW EXAM RADIOLOGY REPORT PROCEDURE: MAMMOGRAM SCREENING 3D BILATERAL CAD COMPARISON: MG MAMM SCREEN 3D DELMA CAD, 09/15/2020. MG MAMM SCREEN DELMA W CAD, 12/08/2018. INDICATIONS: Screening mammography Calculator Name NCI Breast Cancer Risk Assessment Tool 5 Year Breast Cancer Risk 1.20% Lifetime Breast Cancer Risk 4.40% Personal Breast Cancer No Personal Ovarian Cancer No Treatments None Family Cancers Mother with lung cancer at age 57; Father with breast cancer at age 76; Father with bladder/prostate cancer at age 76. LOCATION: [facility] BREAST COMPOSITION: Heterogeneously dense,which may obscure small masses. FINDINGS: DIAGNOSTIC CATEGORY 1--NEGATIVE. NO CHANGE FROM COMPARISON ASSESSMENT. Scattered benign-appearing calcifications are present. Scattered benign-appearing lymph nodes are present. RIGHT BREAST: No significant suspicious finding. LEFT BREAST: No significant suspicious finding. RECOMMENDATIONS: ROUTINE MAMMOGRAM AND CLINICAL EVALUATION IN 12 MONTHS. PLEASE NOTE: A NORMAL MAMMOGRAM DOES NOT EXCLUDE THE POSSIBILITY OF BREAST CANCER. A CLINICALLY SUSPICIOUS PALPABLE LUMP SHOULD BE BIOPSIED. Dictated by: Antony Fraga MD on 08/04/2022 at 13:47 Approved by: Antony Fraga MD on 08/04/2022 at 13:48 Normal [facility] XR DEXA BONE DENSITYon 08-04 XR DEXA BONE DENSITY EXAMINATION: XR DEXA BONE DENSITY, 08/04/2022 8:19 AM EDT HISTORY: Bone density finding COMPARISON: 2020. 2014. TECHNIQUE: Dual-energy X-ray absorptiometry (DEXA) bone density study performed for the axial skeleton. FINDINGS: Bone mineral density ap spine l1-l4 is 1.132 g/cm2, t score -0.4. who classification: normal Lowest bone mineral density right femoral neck is 0.694 g/cm2 with a t score of -2.5. who classification: osteoporosis IMPRESSION: Osteoporosis, high fracture risk Electronically authenticated by: ANTONY FRAGA Date: 2022-08-04 17:13 Normal [facility] PAP ACOG PANEL 2: 30 to 65on 08-02-2022 . . Normal [facility] Comment on above: Performed By: #### [id number] #### [facility] [address] [address] [address] Antonio Macias Age Gdln ACOG Testing Comment Normal [facility] Comment on above: Result Comment: <21 or >65 or no age provided Performed By: #### [id number] #### [facility] [address] [address] [address] Antonio Macias DIAGNOSIS: Comment [facility] Comment on above: Result Comment: NEGA TIVE FOR INTRAEPITHELIAL LESION OR MALIGNANCY. CELLULAR CHANGES ASSOCIATED WITH ATROPHY ARE PRESENT. Performed By: #### [id number] #### [facility] [address] [address] [address] Antonio Macias Methodology: Comment Normal [facility] Comment on above: Result Comment: This liquid based ThinPrep(R) pap test was screened with the use of an image guided system. Performed By: #### [id number] #### [facility] [address] [place] [address] Dr. Antonio Macias Note: Comment Normal [facility] Comment on above: Result Comment: The Pap smear is a screening test designed to aid in the detection of premalignant and malignant conditions of the uterine cervix. It is not a diagnostic procedure and should not be used as the sole means of detecting cervical cancer. Both false-positive and false-negative reports do occur. . Performed By: #### [id number] #### [facility] [address] [place] [address] Dr. Antonio Macias Performed by: Comment Normal [facility] Comment on above: Result Comment: Khalif Louis Director Of Operations (ASCP) Performed By: #### [id number] #### [facility] [address] [place] [address] Dr. Antonio Macias Specimen adequacy: Comment Normal [facility] Comment on above: Result Comment: Sati sfactory for evaluation. Endocervical component may not be distinguished in cases of atrophy. Performed By: #### [id number] #### [facility] [address] [place] [address] Dr. Antonio Macias CBC AUTO DIFFon 10-09-2021 BASO # 0.0 103/ul Normal 0.0-0.1 [facility] Comment on above: Performed By: #### C BC #### [facility] [address] [place] [address] Dr. Antonio Macisa Basophils/100 WBC (Bld) 0.6 % Normal 0.2-2.0 [facility] Comment on above: Performed By: #### C BC #### [facility] [address] [place] [address] Dr. Antonio Macias EO # 0.1 103/ul Normal 0.0-0.7 [facility] Comment on above: Performed By: #### C BC #### [facility] [address] [place] [address] Dr. Antonio Macias Eosinophils/100 WBC (Bld) 2.3 % Normal 0.9-7.0 [facility] Comment on above: Performed By: #### C BC #### [facility] [address] [place] [address] Dr. Antonio Macias Erythrocyte distribution width (RBC) [Ratio] 12.9 % Normal 11.0-15.0 [facility] Comment on above: Performed By: #### C BC #### [facility] [address] [place] [address] Dr. Antonio Macias Hematocrit (Bld) [Volume fraction] 41.9 % Normal 36.0-48.0 [facility] Comment on above: Performed By: #### C BC #### [facility] [address] [place] [address] Dr. Antonio Macias Hemoglobin (Bld) [Mass/Vol] 13.8 g/dL Normal 12.0-16.0 [facility] Comment on above: Performed By: #### C BC #### [facility] [address] [place] [address] Dr. Antonio Macias IG # 0.01 10e3/ul Normal 0.00-0.03 [facility] Comment on above: Performed By: #### C BC #### [facility] [address] [place] [address] Dr. Antonio Macias IG % 0.2 % Normal 0.0-0.5 [facility] Comment on above: Performed By: #### C BC #### [facility] [address] [place] [address] Dr. Antonio Macias LYMPH # 1.1 103/ul Critically low 1.2-3.[address] [facility] Comment on above: Performed By: #### C BC #### [facility] [address] [place] [address] Dr. Antonio Macias Lymphocytes/100 WBC (Bld) 22.0 % Normal 20.5-60.0 [facility] Comment on above: Performed By: #### C BC #### [facility] [address] [place] [address] Dr. Antonio Macias MANUAL DIFF REQ NO Normal [facility] Comment on above: Performed By: #### C BC #### [facility] [address] [place] [address] Dr. Antonio Macias MCH (RBC) [Entitic mass] 29.9 pg Normal 26.7-34.0 [facility] Comment on above: Performed By: #### C BC #### [facility] [address] [place] [address] Dr. Antonio Macias MCHC (RBC) [Mass/Vol] 32.9 g/dL Normal 29.9-35.2 [facility] Comment on above: Performed By: #### C BC #### [facility] [address] [place] [address] Dr. Antonio Macias MCV (RBC) [Entitic vol] 90.9 fL Normal 81.0-99.0 [facility] Comment on above: Performed By: #### C BC #### [facility] [address] [place] [address] Dr. Antonio Macias MONO # 0.4 103/ul Normal 0.3-0.8 [facility] Comment on above: Performed By: #### C BC #### [facility] [address] [place] [address] Dr. Antonio Macias Monocytes/100 WBC (Bld) 8.4 % Normal 1.7-12.0 [facility] Comment on above: Performed By: #### C BC #### [facility] [address] [place] [address] Dr. Antonio Macias NEUT # 3.2 103/ul Normal 1.4-6.5 [facility] Comment on above: Performed By: #### C BC #### [facility] [address] [place] [address] Dr. Antonio Macias Neutrophils/100 WBC (Bld) 66.5 % Normal 43.0-75.0 [facility] Comment on above: Performed By: #### C BC #### [facility] [address] [place] [address] Dr. Antonio Macias Platelet mean volume (Bld) [Entitic vol] 10.4 fL Normal 9.5-13.5 [facility] Comment on above: Performed By: #### C BC #### [facility] [address] [place] [address] Dr. Antonio Macias PLT 244 103/ul Normal 150-450 [facility] Comment on above: Performed By: #### C BC #### [facility] [address] [place] [address] Dr. Antonio Macias RBC 4.61 106/ul Normal 4.20-5.40 [facility] Comment on above: Performed By: #### C BC #### [facility] [address] [place] [address] Dr. Antonio Macias WBC 4.9 103/ul Normal 4.0-11.0 [facility] Comment on above: Performed By: #### C BC #### [facility] [address] [place] [address] Dr. Antonio Macias PROF 14(COMP METB)on 022 Albumin [Mass/Vol] 4.1 g/dL Normal 3.4-5.0 [facility] Comment on above: Performed By: #### C MP, TSH, T4 #### [facility] [address] [place] [address] Dr. Antonio Macias Albumin/Globulin [Mass ratio] 1.2 {ratio} Normal [facility] Comment on above: Performed By: #### C MP, TSH, T4 #### [facility] [address] [place] [address] Dr. Antonio Macias ALP [Catalytic activity/Vol] 120 U/L Critically high 46-116 [facility] Comment on above: Performed By: #### C MP, TSH, T4 #### [facility] [address] [place] [address] Dr. Antonio Macias ALT [Catalytic activity/Vol] 51 U/L Normal 14-59 [facility] Comment on above: Performed By: #### C MP, TSH, T4 #### [facility] [address] [place] [address] Dr. Antonio Macias Anion gap [Moles/Vol] 13.9 mmol/L Normal [facility] Comment on above: Performed By: #### C MP, TSH, T4 #### [facility] [address] [place] [address] Dr. Antonio Macias AST [Catalytic activity/Vol] 16 U/L Normal 15-37 [facility] Comment on above: Performed By: #### C MP, TSH, T4 #### [facility] [address] [place] [address] Dr. Antonio Macias Bilirubin [Mass/Vol] 0.7 mg/dL Normal 0.2-1.0 [facility] Comment on above: Performed By: #### C MP, TSH, T4 #### [facility] [address] [place] [address] Dr. Antonio Macias Calcium [Mass/Vol] 9.4 mg/dL Normal 8.5-10.1 [facility] Comment on above: Performed By: #### C MP, TSH, T4 #### [facility] [address] [place] [address] Dr. Antonio Macias Chloride [Moles/Vol] 106 mmol/L Normal 98-107 [facility] Comment on above: Performed By: #### C MP, TSH, T4 #### [facility] [address] [place] [address] Dr. Antonio Macias CO2 [Moles/Vol] 26.6 mmol/L Normal 21.0-32.0 [facility] Comment on above: Performed By: #### C MP, TSH, T4 #### [facility] [address] [place] [address] Dr. Antonio Macias Creatinine [Mass/Vol] 0.81 mg/dL Normal 0.55-1.02 [facility] Comment on above: Performed By: #### C MP, TSH, T4 #### [facility] [address] [place] [address] Dr. Antonio Macias EGFR-AF [place] >60 Normal >=60 [facility] Comment on above: Performed By: #### C MP, TSH, T4 #### [facility] [address] [place] [address] Dr. Antonio Macias EGFR-NON AF [place] >60 Normal >=60 [facility] Comment on above: Performed By: #### C MP, TSH, T4 #### [facility] [address] [place] [address] Dr. Antonio Macias Globulin (S) [Mass/Vol] 3.4 g/dL Normal [facility] Comment on above: Performed By: #### C MP, TSH, T4 #### [facility] [address] [place] [address] Dr. Antonio Macias Glucose [Mass/Vol] 100 mg/dL Normal 74-[address] [facility] Comment on above: Performed By: #### C MP, TSH, T4 #### [facility] [address] [place] [address] Dr. Antonio Macias Potassium [Moles/Vol] 4.5 mmol/L Normal 3.5-5.1 [facility] Comment on above: Performed By: #### C MP, TSH, T4 #### [facility] [address] [place] [address] Dr. Antonio Macias Protein [Mass/Vol] 7.5 g/dL Normal 6.4-8.[address] [facility] Comment on above: Performed By: #### C MP, TSH, T4 #### [facility] [address] [place] [address] Dr. Antonio Macias Sodium [Moles/Vol] 142 mmol/L Normal 136-[address] [facility] Comment on above: Performed By: #### C MP, TSH, T4 #### [facility] [address] [place] [address] Dr. Antonio Macias Urea nitrogen [Mass/Vol] 18.0 mg/dL Normal 7.0-18.0 [facility] Comment on above: Performed By: #### C MP, TSH, T4 #### [facility] [address] [place] [address] Dr. Antonio Macias Urea nitrogen/Creatinin e [Mass ratio] 22.2 mg/mg Normal [facility] Comment on above: Performed By: #### C MP, TSH, T4 #### [facility] [address], [place] [address] Dr. Antonio Macias T4on 10-09-2021 T4 [Mass/Vol] 8.10 ug/dL Normal 4.80-13.90 [facility] Comment on above: Performed By: #### C MP, TSH, T4 #### [facility] [address] [place], [place] [address] Dr. Antonio Macias TSHon 10-09-2021 TSH 1.633 uIU/mL Normal 0.358-3.740 [facility] Comment on above: Performed By: #### C MP, TSH, T4 #### [facility] [address] [place], [place] [address] Dr. Antonio Macias XR CHEST 2 Von 10-09-2021 XR CHEST 2 V EXAMINATION: XR CHES T 2 V HISTORY: Cough , shortness breath, fatigue COMPARISON: XR chest 09/15/2020 FINDINGS: LUNGS: No significant pulmonary parenchymal abnormalities. VASCULATURE: No increased pulmonary vasculature. PLEURA: No pneumothorax, effusion, or pleural thickening. CARDIAC: No cardiomegaly or cardiac silhouette abnormality. MEDIASTINUM: No visible mass or adenopathy. BONES: No fracture or visible bone lesion. OTHER: Negative. IMPRESSION: 1. No acute cardiopulmonary process. 2. No significant chronic changes. Electronically authenticated by: BRENDAN WYATT Date: 2021-10-09 17:17 Normal [facility] Vital Signs Date Time Vital Sign Value Performing Clinician Ailyni duc 08-17-2023 07:54-0400 Body temperature 98.6 [degF] Gio PECK [facility] 08-17-2023 07:54-0400 Diastolic blood pressure 82 mm[Hg] Gio PECK [facility] 08-17-2023 07:54-0400 Heart rate 71 /min Gio PECK [facility] 08-17-2023 07:54-0400 Respiratory rate 16 /min Gio PECK [facility] 08-17-2023 07:54-0400 Systolic blood pressure 139 mm[Hg] Gio PECK [facility] 12-01-2022 10:30-0400 Diastolic blood pressure 95 mm[Hg] DO Jose Miguel House Work Phone: [facility] 12-01-2022 10:30-0400 Heart rate 54 /min DO Jose Miguel House Work Phone: [facility] 12-01-2022 10:30-0400 Respiratory rate 16 /min DO Jose Miguel House Work Phone: [facility] 12-01-2022 10:30-0400 SaO2% (BldA) [Mass fraction] 100 % DO Jose Miguel House Work Phone: [facility] 12-01-2022 10:30-0400 Systolic blood pressure 145 mm[Hg] DO Jose Miguel House Work Phone: [facility] 12-01-2022 09:34-0400 Body height 162.56 cm DO Jose Miguel House Work Phone: [facility] 12-01-2022 09:34-0400 Body temperature 97.6 [degF] DO Jose Miguel House Work Phone: [facility] 12-01-2022 09:34-0400 Body weight 74.84 kg DO Jose Miguel House Work Phone: [facility] 12-30-2021 12:21-0400 Blood Pressure Location FAITHSTEPHENIE ADAMS [facility] 12-30-2021 12:21-0400 Diastolic blood pressure 89 mm[Hg] FAITH RATLIFFRY [facility] 12-30-2021 12:21-0400 Heart rate 74 /min FAITH ADAMS [facility] 12-30-2021 12:21-0400 Respiratory rate 16 /min FAITH ADAMS [facility] 12-30-2021 12:21-0400 Systolic blood pressure 162 mm[Hg] FAITH ADAMS [facility] Encounters Encounter Date Encounter Type Care Provider Facility Start: 08-17-2023 End: 08-18-2023 ambulatory Gio PECK Facility[facility] Start: 08-17-2023 End: 08-17-2023 Lab Drop off Gio PECK [facility] Start: 08-17-2023 End: 08-17-2023 Patient encounter procedure Gio PECK [facility] Start: 08-08-2023 End: 08-08-2023 ambulatory CYNTHIA JENNY Not Available Start: 02-23-2023 End: 02-23-2023 ambulatory CARLY T BLACKSTON Not Available Start: 02-21-2023 End: 02-21-2023 ambulatory CARLY T BLACKSTON Not Available Start: 02-16-2023 End: 02-16-2023 ambulatory CARLY T BLACKSTON Not Available Start: 02-14-2023 End: 02-14-2023 ambulatory CARLY T BLACKSTON Not Available Start: 01-14-2023 End: 01-14-2023 ambulatory PHYSICIAN NO FAMILY Facility:[facility] Start: 12-01-2022 End: 12-01-2022 ambulatory Jose Miguel House Facility:[facility] Start: 12-01-2022 End: 12-01-2022 Admission to same day surgery center DO Jose Miguel House Work Phone: [facility] Work Phone: Start: 12-01-2022 End: 12-01-2022 ambulatory DO Jose Miguel House Work Phone: [facility] Work Phone: Start: 08-25-2022 End: 08-26-2022 ambulatory Gio PECK Facility[facility] Start: 08-25-2022 End: 08-26-2022 ambulatory Gio PECK Facility:[facility] Start: 08-04-2022 End: 08-05-[address] STEPHEN PRUITT . Facility:[facility] Start: 07-26-2022 End: 07-26-[address] STEPHEN PRUITT . Facility:[facility] Start: 12-30-2021 End: 12-30-2021 Patient encounter procedure FAITH ADAMS [facility] Start: 11-04-2021 End: 11-04-[address] JOSE MIGUEL PHILLIPS Facility: Start: 10-09-2021 End: 10-10-[address] JOSE MIGUEL PHILLIPS Facility: Procedures Date Procedure Procedure Detail Performing Clinician Start: 08-17-2023 Flexible cystoscope (physical object) Gio MASSIMO Start: 12-01-2022 Colonoscopy DO Jose Miguel Phillips Work Phone: Start: 08-25-2022 Cystoscopy Gio SHELBY Start: 09-01-2021 Cystoscopy FAITH DICKENS Start: 02-05-2020 Cystoscopy FAITH DICKENS Start: 08-21-2019 Cystoscopy FAITH DICKENS Start: 07-24-2018 Instillation of BCG into the bladder FAITH ADAMS Comment on above: # 6 started 8 # 3 started 07/24/18 Start: 05-01-2018 Cystoscopy FAITH DICKENS Comment on above: 04/26/2016, 08/10/19 17 Start: 08-23-2017 Laser bladder lesion therapy FAITH ADAMS Start: 05-20-2016 Cystoscopy and transurethral resection of bladder tumor FAITH ADAMS Appendectomy FAITH ADAMS Colonoscopy FAITH ADAMS Hysterectomy FAITH ADAMS Ligation of fallopian tube J ALLEN ADAMS Plan of Treatment Date Care Activity Detail Author Start: 12-01-2022 [facility] Immunizations Immunization Date Immunization Notes Care Provider [facility] 01-17-2023 influenza virus vaccine, unspecified formulation [employer] [facility] 01-04-2022 influenza virus vaccine, unspecified formulation [employer] [facility] 03-16-2021 SARS-CoV-2 mRNA (tozinameran 5y-11y) vaccine FAITH ADAMS [facility] 12-19-2020 influenza virus vaccine, unspecified formulation [employer] [facility] 12-19-2020 zoster vaccine recombinant [employer] [facility] 08-19-2020 SARS-CoV-2 mRNA (tozinameran 5y-11y) vaccine FAITH ADAMS [facility] 07-22-2020 SARS-CoV-2 mRNA (tozinameran 5y-11y) vaccine FAITH ADAMS [facility] 12-14-2019 influenza virus vaccine, unspecified formulation [employer] [facility] 02-19-2019 bacillus calmette-cl vaccine FAITH ADAMS [facility] 02-12-2019 bacillus calmette-cl vaccine FAITH ADAMS [facility] 02-05-2019 bacillus calmette-cl vaccine FAITH ADAMS [facility] 12-27-2018 influenza virus vaccine, unspecified formulation Gio PECK [facility] 12-27-2017 influenza virus vaccine, unspecified formulation Gio PECK [facility] 01-03-2017 influenza virus vaccine, unspecified formulation Gio PECK [facility] 12-31-2015 influenza virus vaccine, unspecified formulation Gio PECK [facility] 12-25-2014 influenza virus vaccine, unspecified formulation Gio PECK [facility] 12-26-2013 influenza virus vaccine, unspecified formulation Gio PECK [facility] Payers Date Payer Category Payer Medicaid [id number] 2022 Self-pay [id number] 2022 Unknown [id number] 2022 Unknown [id number] 1958 Medicare [id number] 1959 Unknown [id number] 1956 Unknown [id number] 2.16.84 [id number] 1956 Unknown [id number] 2.16.84 0.1.303316.3.579.2.593 1956 Unknown [id number] 2.16.84 0.1.176160.3.579.2.593 1956 Unknown [id number] 2.16.84 0.1.910572.3.579.2.593 1956 Unknown [id number] 2.16.84 0.1.211991.3.579.2.1259 1956 Unknown [id number] 2.16.840 .1.877748.3.579.2.1259 1956 Unknown [id number] 2.16.840 .1.266078.3.579.2.1259 1956 Unknown [id number] 2.16.840. 1.112069.3.579.2.1259 1956 Unknown [id number] 2.16.840. 1.548734.3.579.2.1259 1956 Unknown [id number] 2.16.8 40.1.088502.3.579.2.727 1956 Unknown [id number] 2.16.8 40.1.696174.3.579.2.727 1956 Unknown [id number] 2.16.8 40.1.678214.3.579.2.727 1956 Unknown [id number] 2.16.8 40.1.743890.3.579.2.727 Unknown [id number] 2.16.8 40.1.752312.3.579.2.531 Unknown [id number] 2.16.8 40.1.830644.3.579.2.531 Social History Date Type Detail Facility Start: 12-30-2021 End: 08-17-2023 Tobacco smoking status Never smoked tobacco (finding) [facility] Sex Assigned At Female [facility] Start: 1955 Sex Assigned At Female [facility] Tobacco smoking status Never [facility] Goals Date Patient Goal Desired Activity /State Functional Status Date Assessment Result Facility 08-17-2023 Functional Status N/A [facility] 12-30-2021 Functional Status N/A [facility] Clinical Notes 12-30-2021 to 08-17-2023 Note Date & Type Note Facility 08-17-2023 Evaluation + Plan note Diagnostic Tests [facility] 08/17/23 [facility] 08-17-2023 Hospital Discharge instructions Patient Education 08/17/2023 08:00:14 Cancer Screening for Women Cancer Screening for Women A cancer screening is a test or exam that checks for cancer. Your health care provider will recommend specific cancer screenings based on your age, medical history (including risk factors), and family history of cancer. Work with your health care provider to create a cancer screening schedule that protects your health. Who should have screening? All women should be considered for screening of certain cancers, including breast cancer, cervical cancer, colorectal cancer, and skin cancer. Your health care provider may recommend screenings for other types of cancer if: You had cancer before. You have a family member with cancer. You have abnormal genes that could increase the risk of cancer. You have risk factors for certain cancers, such as current or past use of tobacco products, or being overweight. When you should be screened for cancer depends on: Your age. Your medical history and your family's medical history. Certain lifestyle factors, such as smoking or other use of tobacco products. Environmental exposure, such as to asbestos. How is screening done? Breast cancer Breast cancer screening is done with a test that takes images of breast tissue (mammogram). Here are some screening guidelines for women at average risk: When you are age 40 44, you will be given the choice to start having mammograms. When you are age 45 54, you should have a mammogram every year. You may start having mammograms before age 45 if you have risk factors for breast cancer, such as having an immediate family member with breast cancer. At age 55 or older, you should have a mammogram every 1 2 years for as long as you are in good health and have a life expectancy of 10 years or longer. It is important to know what your breasts look and feel like so you can report any changes to your health care provider. Cervical cancer All women at average risk should be considered for screening for cervical cancer starting no later than age 25 and continuing until age 65. Screening should not begin earlier than age 21. You will have tests every 3 5 years, depending on your results and the type of screening test. Talk with your health care provider about which screening test is right for you and how often you should be screened. ?Cervical cancer screening is done with an HPV (human papillomavirus) test to identify the virus that causes cervical cancer. To perform the test, a health care provider takes a swab of cells from yourcervix during a pelvic exam. This test may be performed along with a Pap test. This testchecks for abnormalities in the lowest part of the uterus (cervix). ?If you have had the HPV vaccine, you will still be screened for cervical cancer and follow normal screening recommendations. You do not need to be screened for cervical cancer if any of the following apply to you: You are older than age 65 and you have had normal screening tests in the past 10 years with no serious cervical precancer or cancer in the last 25 years. Your cervix and uterus have been removed, and you have never had cervical cancer or abnormal cells that could become cancer (precancerous cells). Colorectal cancer All adults should have screenings starting at age 45 and continuing until age 75. Your health care provider may recommend screening before age 45. You will have tests every 1 10 years, depending on your results and the type of screening test. People at increased risk should start screening at an earlier age. Talk with your health care provider about which screening test is right for you and how often you should be screened. Colorectal cancer screening looks for cancer or for growths called polyps that often form before cancer starts. Tests to look for cancer or polyps include: Colonoscopy or flexible sigmoidoscopy. For these procedures, a flexible tube with a small camera is inserted into the rectum. CT colonography. This test uses X-rays and a contrast dye to check the colon for polyps. If a polyp is found, you may need to have a colonoscopy so the polyp can be located and removed. Tests to look for cancer in the stool (feces) include: Guaiac-based fecal occult blood test (FOBT). This test can find blood in stool. It can be done at home with a kit. Fecal immunochemical test (FIT). This test can find blood in stool. For this test, you will need to collect stool samples at home. Stool DNA test. This test looks for blood in stool and any changes in DNA that can lead to colon cancer. For this test, you will need to collect a stool sample at home and send it to a lab. Endometrial cancer There is no standard screening test for endometrial cancer, and women at average risk do not routinely need to have this screening. Talk with your health care provider about whether screening is right for you. If it is, this screening is performed through: Endometrial tissue biopsy. This tests a sample of tissue taken from the lining of the uterus. Vaginal ultrasound. If you are at increased risk for endometrial cancer, you may need to have these tests more often than normal. You are at increased risk if: You have a family history of ovarian, uterine, or colon cancer. You are taking tamoxifen, a medicine used to treat breast cancer. You have certain types of colon cancer. If you have reached menopause, it is especially important to talk with your health care provider about any vaginal bleeding or spotting. Screening for endometrial cancer is not recommended for women who do not have symptoms of the cancer, such as vaginal bleeding. Lung cancer Lung cancer screening is done with a CT scan that looks for abnormal changes in the lungs. Discuss lung cancer screening with your health care provider if you are 50 80 years old and if any of the following apply to you: You currently smoke. You used to smoke heavily. You have a smoking history of 1 pack of cigarettes a day for 20 years or 2 packs a day for 10 years. You have quit smoking within the past 15 years. You may need to be screened every year if you smoke heavily or if you used to smoke. Skin cancer Skin cancer screening is done by checking the skin for unusual moles or spots and any changes in existing moles. Your health care provider should check your skin for signs of skin cancer at every physical exam. You should check your skin every month and tell your health care provider right away if anything looks unusual. Women with a [id number] risk for skin cancer may want to see a leasing specialist (customer development representative) for an annual body check. What are the benefits of screening? Cancer screening is done to look for cancer in the very early stages, before it spreads and becomes harder to treat and before you would start to notice symptoms. Finding cancer early improves the chances of successful treatment. It may save your life. Where to find more information [place] [employer]: www.cancer.org Centers for Disease Control and Prevention: www.cdc.gov National Cancer [place]: www.cancer.gov U.S. Department of Health and Human Services: www.womenshealth.gov Contact a health care provider if: You have concerns about any signs or symptoms of cancer. These may include: Skin problems. You may have: ?Moles of an unusual shape or color. ?Changes in existing moles. ?A sore on your skin that does not heal. Tiredness (fatigue) that does not go away. Losing weight without trying. Blood in your urine or stool. Problems with coughing or breathing. These may include: ?Coughing or trouble breathing that does not go away. ?Coughing up blood. Lumps or other changes in your breasts. Vaginal bleeding, spotting, or changes in your periods. Frequent pain or cramping in your abdomen. Summary Your health care provider will recommend specific cancer screenings based on your age, medical history, and family history of cancer. Work with your health care provider to create a cancer screening schedule that protects your health. Finding cancer early improves the chances of successful treatment. It may save your life. Contact a health care provider if you have concerns about any signs or symptoms of cancer. This information is not intended to replace advice given to you by your health care provider. Make sure you discuss any questions you have with your health care provider. Document Revised: 08/17/2021 Document Reviewed: 02/15/2020 [employer] Patient Education 2022 [employer] Follow Up Care 07/13/2023 10:02:01 With:MASSIMO MEDEROS, Gio Ryan, URL Address: [facility] [address] , [place] [address]- When: Unknown [facility] 12-01-2022 Procedure note [facility] 12-30-2021 Evaluation + Plan note Diagnostic Tests [facility] ([facility]) 12/30/21 [facility] 12-30-2021 Hospital Discharge instructions Follow Up Care 12/30/2021 09:49:55 With:FAITH ADAMS PA-C, URL Address: [address] [place] [phone] Business (1) When: only if needed [facility] Evaluation note No assessment inform ation available [facility] Work Phone: History and physical note Note Date/Time December 01, 2022 9:51am [facility] [address] [place] [address] Gastroenterology H&P Signed Patient: Stacia Park MR#: [id number] : 1955 Acct:[id number] Age/Sex: 67 / F Adm Date: 3 Loc: Room: Type: [facility] Attending Dr: Jose Gutierrez MD Copies to: MD Jose Miguel Sprague [place], DO~ Date of Service: 12/01/2022 HISTORY & PHYSICAL: Patient's history with special attention to the cardiovascular, pulmonary systems and the current problem was reviewed with the patient immediately prior to the procedure. Present medications and doses reviewed in the EMR. Allergies and pertinent laboratory tests were also reviewedat this time in the EMR. The physical examination, as below, was then performed. Indication, assessment and HPI: 67-year-old female presents for colonoscopy to evaluate change in bowel habits with diarrhea Family history of GI malignancy? No PHYSICAL EXAMINATION Mouth and Pharynx : Moist mucus membranes, normal dentition Cardiac: Regular rate, regular rhythm Pulmonary: Clear to auscultation bilaterally, no wheezing Neurological: Alert and oriented x3, no focal deficits noted Abdomen: Abdomen soft, non-tender REVIEW OF SYSTEMS Constitutional: Denies malaise, fevers Cardiovascular: Denies chest pain, palpitations Respiratory: Denies shortness of breath, wheezing Gastrointestinal: Per HPI Genitourinary: Denies dysuria, polyuria Musculoskeletal: Denies joint swelling, joint stiffness Neurological: Denies numbness, tingling Integumentary: Denies rashes, skin lesions Endocrine: Denies fatigue, weight loss Written informed consent obtained from the patient. Risks (including but not limited to perforation, infection, bloating, bleeding, need for emergent surgeryand loss of life), benefits and alternatives explained and questions answered. The patient verbalized understanding. Based on history patient is an appropriate candidate for the procedure. Jose Gutierrez MD Documented By: Jose Gutierrez MD 12/01/2250 Signed By: <Electronically signed by Jose Gutierrez MD> 12/01/22 0951 [facility] Work Phone: Hospital course Narrative No data available for this section [facility] Hospital Discharge instructions Additional Instructions DISCHARGE INSTRUCTIONS FOR COLONOSCOPY WHAT TO EXPECT: - You may feel full, gassy or cramping after your procedure. In some cases, this may be from a few hours to a day. Walking may help relieve the discomfort. - If you have polyp(s) removed you may note some minor bloody discharge after your first bowel movements. - You should begin to recover from anesthesia within 1 hour of the procedure, however may feel groggy for the next 24 hours. DO's AND DON'Ts: - Call your doctor right away if you have a hard abdomen, severe pain, are passing lots of bright red blood or clots. - Call your doctor if you develop any rashes, hives or difficulty breathing. - Let your doctor know if you have not had a bowel movement by 3 days after your procedure. - If you take 81 mg aspirin for your heart it is safe to resume this medication. - If you take other blood thinner medications your doctor will instruct you when these can safely be resumed. - Do NOT drive for 24 hours. - Do NOT operate machinery such as power tools, lawn mowers, snow blowers, sewing machines, etc. for 24 hours. - Avoid alcoholic beverages and drugs for allergies, nerves, or sleep. - Do NOT stay alone. Do NOT leave your child unattended. - Do NOT make important personal or business decisions or sign any legal documents. - Eat solid foods and drink liquids in smaller amounts than usual until normal appetite returns. If you should experience an upset stomach, liquids high in sugar content (soda, Geovanni-Aid, non-acid juices) are recommended. - You can resume normal activities tomorrow. FOLLOW UP & RECOMMENDATIONS: -The GI office will schedule follow-up appointment -Notify the doctor if you have any problems. -Repeat colonoscopy in 10 years. -Follow up with PCP. -Office number [phone].[facility] Work Phone: Hospital Discharge instructions No data available for this section [facility] No data available for this section [facility] Summary Purpose Family History No Family History Records Found Relationship Condition Age at Onset Recorded Date/T patricia father Malignant neoplasm of urinary bladder Unk nown Malignant neoplasm of breast Unknown Not Specified Malignant neoplasm of lung Unknown Advance Directives No Advanced Directives Records Found Advance Directive Response Recorded Date/ Time Advance Directives No October 22 3:11pm Chief Complaint and Reason for Visit Chief Complaint abd pain, fecal urge ncy, diahrrea Additional Source Comments Care Team (unrecognized sect ion and content) Team Status: Active Member Role Status Darvin Phillips DO Primary Care Provider Active Team Status: Inactive Member Role Status Dates Jose Miguel Phillips DO Primary Care Provider Active Jose Gutierrez MD Attending Provider Active INFORMATION SOURCE (unrecogn ized section and content) DATE CREATED AUTHOR 08/12/2022 [facility] DATE CREATED AUTHOR AUTHOR'S ORGANIZ ATION 01/16/2023 [facility] DATE CREATED AUTHOR AUTHOR'S ORGANIZ ATION 08/09/2023 [facility] DATE CREATED AUTHOR AUTHOR'S ORGANIZ ATION 08/21/2023 [facility] FOR RECORDS PERTAINING TO PATIENTS WHO ARE OR HAVE BEEN ENROLLED IN A CHEMICAL DEPENDENCY/SUBSTANCEABUSE PROGRAM, SOME INFORMATION MAY BE OMITTED. This clinical summary was aggregated from multiple sources. Caution should be exercised in using it in the provision of clinical care. This summary normalizes information from multiple sources, and as a consequence, information in this document may materially change the coding, format and clinical context of patient data. In addition, data may be omitted in some cases. CLINICAL DECISIONS SHOULD BE BASED ON THE PRIMARY CLINICAL RECORDS. [facility] [employer] [facility]. provides no warranty or guarantee of the accuracy or completeness of information in this document.
== END 2023-08-22 09:00 | disposition home or self-care (01) ==
LOC: MAMMO 08:59
PROVIDERS: Visit Provider Obstetrics & Gynecology
DX: Z12.31 Encounter for screening mammogram for malignant neoplasm of breast (principal); Z80.3 Family history of malignant neoplasm of breast; Z80.1 Family history of malignant neoplasm of trachea, bronchus and lung; Z80.42 Family history of malignant neoplasm of prostate
CPT/HCPCS: 77063; 77067

== ENCOUNTER 2023-09-14 07:27 | Outpatient (RCR) | payer MEDICARE, OTHER, SELFPAY ==
[2023-09-14 08:43] VITALS: BP 184/91; PULSE 62; TEMP 36.3; O2SAT 98
--- NOTE | 2023-09-14 08:54 | PC.NURSE ---
0843: Pt. to [facility] amb. for Prolia injection. Seated in recliner. Relays going to lab prior to arrival. VSS. BP elevated, encouraged to speak to PCP regarding BP. Pt. given info. on Prolia side effects. Pt. relays understanding.
[2023-09-14] MEDS: DENOSUMAB 60 MG/ML SYRINGE SUBQ (09:22)
--- NOTE | 2023-09-14 09:34 | PC.NURSE ---
0934: Pt. without adverse reaction or side effects. No bleeding from injection site. D/c'd amb. to home.
== END 2023-09-14 14:00 | disposition home or self-care (01) ==
LOC: LAB 07:27
PROVIDERS: PCP Nurse Practitioner Family; Visit Provider Obstetrics & Gynecology
DX: R53.83 Other fatigue (principal); R05.3 Chronic cough; Z78.0 Asymptomatic menopausal state; M81.0 Age-related osteoporosis without current pathological fracture
CPT/HCPCS: 36415; 71046; 80053; 80061; 82306; 83036; 83525; 84436; 84443; 84481; 85025; 96372; J0897

== ENCOUNTER 2023-09-14 08:14 | Outpatient (OUT) | payer MEDICARE, OTHER, SELFPAY ==
--- OUTSIDE RECORDS SUMMARY | 2023-09-14 08:16 | XMS_ITS ---
Patient Summarization (C-CDA 2.1 CCD) Created on: September 14, 2023 STACIA PARK : 1955 Sex: Female Author Organization Sample organization Care Team Providers Care Jack Spooler Tender Name Role Phone Jose Miguel Phillips Primary Care Physician [phone] EDMOND ., DR MITCHELL Admitting Unavailabl e KARASIK ., DR MITCHELL Attending Unavailabl e KARASIK ., DR MITCHELL Consulting Unavailabl e JACQUELINE, DR GILLESPIE Primary Care Unavailable DEFIANCE, DR ANTONY Maldonado Consulting Unavailable [place], DR GILLESPIE Consulting Unavailable [place], DR GILLESPIE Primary Care Unavailable [place], DR GILLESPIE Admitting Unavailable JACQUELINE, DR GILLESPIE Attending Unavailable ZIEBBRENDAN QUICK Consulting Unavailable [place], DR GILLESPIE Attending Unavailable [place], DR GILLESPIE Consulting Unavailable [place], DR GILLESPIE Primary Care Unavailable [place], DR GILLESPIE Admitting Unavailable KARASIK ., DR MITCHELL Attending Unavailabl e KARASIK ., DR MITCHELL Consulting Unavailabl e KARASIK ., DR MITCHELL Admitting Unavailabl e JACQUELINE, DR GILLESPIE Primary Care Unavailable Jacqueline, DO Gillespie Primary Care Provider [phone] MD Jose Gutierrez Attending Provider Jose Miguel Phillips Primary Care Unavailable Jose Gutierrez Admitting Unavailable Jose Gutierrez Attending Unavailable NO FAMILY, PHYSICIAN Primary Care Unavailable Mario Chavez Admitting Unavailable Mario Chavez Attending Unavailable NA, CARLY Pamela Attending Unavailable APLING, RIVAS B Referring Unavailable [...] Medication Allergies] Propensity to adverse reactions (disorder) [facility] Repository Encounters Encounter Date Encounter Type Care Provider Facility Start: 08-17-2023 End: 08-18-2023 ambulatory Gio PECK [facility] Start: 08-17-2023 End: 08-17-2023 Lab Drop off Gio PECK [facility] Start: 08-17-2023 End: 08-17-2023 Patient encounter procedure Gio PECK [facility] Start: 08-08-2023 End: 08-08-2023 ambulatory CYNTHIA ALVARADO Not Available Start: 02-23-2023 End: 02-23-2023 ambulatory CARLY Pamela JOHNTON Not Available Start: 02-21-2023 End: 02-21-2023 ambulatory CARLY T BLACKSTON Not Available Start: 02-16-2023 End: 02-16-2023 ambulatory CARLY T [place]ACK[place] Not Available Start: 02-14-2023 End: 02-14-2023 ambulatory CARLY T BLACK[place] Not Available Start: 01-14-2023 End: 01-14-2023 ambulatory PHYSICIAN NO FAMILY Facility:[facility] Start: 12-01-2022 End: 12-01-2022 ambulatory Jose Miguel House Facility:[facility] Start: 12-01-2022 End: 12-01-2022 Admission to same day surgery center DO Jose Miguel House Work Phone: [facility] Work Phone: Start: 12-01-2022 End: 12-01-2022 ambulatory DO Jose Miguel House Work Phone: [facility] Work Phone: Start: 08-25-2022 End: 08-26-2022 ambulatory Gio PECK Facility[place] Start: 08-25-2022 End: 08-26-2022 ambulatory Gio PECK Facility:[facility] Start: 08-04-2022 End: 08-05-[address] STEPHEN PRUITT . Facility: Start: 07-26-2022 End: 07-26-[address] STEPHEN PRUITT . Facility:[facility] Start: 12-30-2021 End: 12-30-2021 Patient encounter procedure FAITH [facility] Start: 11-04-2021 End: 11-04-[address] JOSE MIGUEL PHILLIPS Facility:[facility] Start: 10-09-2021 End: 10-10-[address] JOSE MIGUEL PHILLIPS Facility: Goals Date Patient Goal Desired Activity /State Immunizations Immunization Date Immunization Notes Care Provider [facility] 01-17-2023 influenza virus vaccine, unspecified formulation Gio PECK [facility] 01-04-2022 influenza virus vaccine, unspecified formulation Gio PECK [facility] 03-16-2021 SARS-CoV-2 mRNA (tozinameran 5y-11y) vaccine [facility] 12-19-2020 influenza virus vaccine, unspecified formulation Gio PECK [facility] 12-19-2020 zoster vaccine recombinant Gio PECK [facility] 08-19-2020 SARS-CoV-2 mRNA (tozinameran 5y-11y) vaccine [facility]ITH [facility] 07-22-2020 SARS-CoV-2 mRNA (tozinameran 5y-11y) vaccine [facility] 12-14-2019 influenza virus vaccine, unspecified formulation Zetera [facility] 02-19-2019 bacillus calmette-cl vaccine FAITH ADAMS [facility] 02-12-2019 bacillus calmette-cl vaccine [facility] 02-05-2019 bacillus calmette-cl vaccine [facility] 12-27-2018 influenza virus vaccine, unspecified formulation Zetera [facility] 12-27-2017 influenza virus vaccine, unspecified formulation Gio Woozworld [facility] 01-03-2017 influenza virus vaccine, unspecified formulation Gio [employer] [facility] 12-31-2015 influenza virus vaccine, unspecified formulation Zetera [facility] 12-25-2014 influenza virus vaccine, unspecified formulation Gio [employer] [facility] 12-26-2013 influenza virus vaccine, unspecified formulation Zetera [facility] Medications Current Medications Medication Drug Class(es) Dates [...] for 5 day(s), 10 tab(s), Refill(s) 0, [facility]/pharmacy #[id number], 162, cm, 12/30/21 12:22:00 EDT, Height/Length [...] procedure, # 2 tab(s), Refills(s) 0, Pharmacy: [facility]/pharmacy #[id number], 162, cm, 08/17/23 7:56:00 EDT, Height/Length Dosing, 80, kg, 08/17/23 7:56:00 EDT, Weight Dosing Start Date: 08/17/23 Status: Ordered Start: 08-17-2021 take 1 tablet by kody th once daily Cipro 500 mg Tab 500 mg = 1 tab(s), Oral, Daily, Take 1 tablet the day before the procedure and 1 tablet after the procedure, # 2 tab(s), Refills(s) 0, Pharmacy: [facility]/pharmacy #[id number], 162, cm, 08/05/20 12:19:00 EDT, Height/Length Dosing, 73.5, kg, 02/05/20 7:42:00 EST,... Start Date: 08/17/21 Status: Ordered Payers Date Payer Category Payer Medicaid [id number] 2022 Self-pay [id number] 2022 Unknown [id number] 2022 Unknown [id number] 1958 Medicare [id number] 1958 Unknown [id number] 1955 Unknown [id number] 2.16.84 0.1.856686.3.579.2.593 1955 Unknown [id number] 2.16.84 0.1.542860.3.579.2.593 1955 Unknown [id number] 2.16.84 0.1.110683.3.579.2.593 1955 Unknown [id number] 2.16.84 0.1.431000.3.579.2.593 1955 Unknown [id number] 2.16.84 0.1.086038.3.579.2.1259 1955 Unknown [id number] 2.16.840 .1.380659.3.579.2.1259 1955 Unknown [id number] 2.16.840 .1.400694.3.579.2.1259 1955 Unknown [id number] 2.16.840. 1.958114.3.579.2.1259 1955 Unknown [id number] 2.16.840. 1.992251.3.579.2.1259 1955 Unknown [id number] 2.16.8 40.1.892161.3.579.2.727 1955 Unknown [id number] 2.16.8 40.1.941260.3.579.2.727 1955 Unknown [id number] 2.16.8 40.1.552641.3.579.2.727 1955 Unknown [id number] 2.16.8 40.1.469860.3.579.2.727 Unknown [id number] 2.16.8 40.1.975196.3.579.2.531 Unknown [id number] 2.16.8 40.1.697250.3.579.2.531 Plan of Treatment Date Care Activity Detail Author Start: 12-01-2022 [facility] Problems Active Problems Problem Classification Problem Date [...] COUGH, UNSPECIFIED; Translations: [COUGH, UNSPECIFIED] Onset: 11-04-2021 Procedures Date Procedure Procedure Detail Performing Clinician Start: 08-17-2023 Flexible cystoscope (physical object) Gio PECK Start: 12-01-2022 Colonoscopy DO Jose Miguel Phillips Work Phone: Start: 08-25-2022 Cystoscopy Gio JEROD BRITOJessica Start: 09-01-2021 Cystoscopy FAITH DICKENS Start: 02-05-2020 Cystoscopy FAITHCATHY DICKENS Start: 08-21-2019 Cystoscopy FAITH DICKENS Start: [...] Ligation of fallopian tube J ALLEN ADAMS Results Test Name Value Interpretation Reference Range Facility [facility] Fish and Urine Cyt o ([facility])on 08-23-2023 UV[facility] & UC Diagnosis Info Invalid Interpretation Code [facility] Comment on above: Result Comment: A:Ur ine,Urine:Voided Diagnosis Summary - Diagnosis Summary - The U[facility] FISH study detected normal copy numbers for chromosomes 3, 7, 17, and 9p21. 200 cells were analyzed in this evaluation. No evidence of aneuploidy for chromosomes 3, 7, or 17 or deletion of the 9p21 locus was found in cells present in this specimen. This test does not rule out the possibility of a low grade non-invasive papillary urothelial carcinoma. These findings should be correlated with cytology and cystoscopy results.* Microscopic Notes - Microscopic Notes - Abnormal cells 9p21 deletions: Abnormal cells aneploid events: Total cells analyzed: 200 Hematuria: Gross Description Site ID:A color Yellow fixative Alcohol Received 110 mls of clear yellow fluid with the patient's name and, Urine on the vial. Electronically signed by : on: 08/23/2023 12:26:36 Performed By: #### 1 [id number] #### [facility] [address] [place] [address] Consent for Procedure/Surger yon 08-19-2023 Consent for Procedure/Surgery [id number]. [id number] Normal [facility] Ambulatory Visit Summaryon 0 08-17-2023 Ambulatory Visit Summary STACIA PARK Neha :1955 Visit Date:08/17/2023 Ambulatory Visit Instructions Your [...] Schedule the Following Appointments Follow Up with LIV MEDEROS, SHELDON Maya When: Where: [facility] [address], [place] [address]- Medications What How Much When Instructions Unchanged [...] not begin (more content not included)... Normal [facility] Patient Educationon 08-17-19 Patient Education Oncology [...] tissue b (more content not included)... Normal [facility] U[facility]ys[facility] Fish and Urine Cyt o ( Labs)on 08-17-2023 [facility] Method of Extraction Voided Normal [facility] Comment on above: Performed By: #### 1 [id number] #### [facility] [address] [place] [address] [facility] Number of Jars 1 Invalid Interpretation Code [facility] Comment on above: Performed By: #### 1 [id number] #### [facility] [address] [place] [address] [facility] Specimen Urine Normal [facility] Comment on above: Performed By: #### 1 [id number] #### [facility] [address] [place] [address] [facility] Type of Service Technical Only Normal [facility] Comment on above: Performed By: #### 1 [id number] #### [facility] [address] [place] [address] Urology Office/Clinic Noteon 08-17-2023 Urology Office/Clinic Note [...] with plan. Follow-up With When Contact Information LIV MEDEROS, Gio Ryna, URL [facility] [address] [place] [address]- Additional Instructions: 4 mos cysto Patient Education Cancer Screening for Women ISheree, personally scribed for Dr. Peck on 08/17/2023 [...] of f (more content not included)... Normal [facility] Comment on above: Result Comment: Elec tronically Signed By: Gio PECK MD\.br\Date and Time Signed: 08/17/23 08:14 EDT\.br\Electronically Co-Signed By: Sheree Cox\.br\Date and Time Co-Signed: 08/17/23 08:13 EDT Reminderson 07-13-2023 Reminders - From: Tiffanie Carroll To: EU - Recalls Liv; Cc: Tiffanie Carroll; Sent: 08/27/2022 08:36:40 EDT Show up: 07/04/2023 08:36:00 EDT Subject: Cysto/FISH/cytol Due Date/Time: 07/25/2023 08:36:00 EDT Reminder/Recall Patient is due in August 2023 for 1 year cysto/fish/cytol (bt ck) l/m on vm.LG l/m on vm.LG Pt called back. Sched for 08/17/23 in [place]. LG Normal [facility] Reminders - From: Tiffanie Carroll To: EU - Recalls Peck; Sent: 07/13/2023 10:05:12 EDT Show up: 07/03/2024 10:05:00 EDT Subject: Cysto/FISH/cytol Due Date/Time: 07/23/2024 10:05:00 EDT Reminder/Recall Patient needs sched for 1 year Cysto/FISH/cytol (bt ck) August 2024 Normal [facility] Complete Blood Count Auto Di ffon 01-14-2023 Basophils (Bld) [#/Vol] 0.0 10*3/uL Normal 0.0-0.2 [facility] Comment on above: Order Comment: Reaso n for Exam IBS (irritable bowel syndrome) Result Comment: PERF ORMED BY: [place] [address] PATHOLOGIST FORESTRY HUNTER CARY GARCIA M.D. Performed By: #### C BC, CMP #### [place] [address] [place] Basophils/100 WBC (Bld) 0.9 % Normal . [facility] Comment on above: Order Comment: Reaso n for Exam IBS (irritable bowel syndrome) Performed By: #### C BC, CMP #### [facility] [address] [place] [address] [place] Eosinophils (Bld) [#/Vol] 0.1 10*3/uL Normal 0.0-0.45 [facility] Comment on above: Order Comment: Reaso n for Exam IBS (irritable bowel syndrome) Performed By: #### C BC, CMP #### [facility] [address] [place] [address] [place] Eosinophils/100 WBC (Bld) 2.2 % Normal . [facility] Comment on above: Order Comment: Reaso n for Exam IBS (irritable bowel syndrome) Performed By: #### C BC, CMP #### [facility] [address] Erythrocyte distribution width (RBC) [Ratio] 13.7 % Normal 11.9-15.3 [facility] Comment on above: Order Comment: Reaso n for Exam IBS (irritable bowel syndrome) Performed By: #### C BC, CMP #### [facility] [address] Hematocrit (Bld) [Volume fraction] 39.1 % Normal 34.0-46.4 [facility] Comment on above: Order Comment: Reaso n for Exam IBS (irritable bowel syndrome) Performed By: #### C BC, CMP #### [address] Hemoglobin (Bld) [Mass/Vol] 13.1 g/dL Normal 11.8-15.4 [facility] Comment on above: Order Comment: Reaso n for Exam IBS (irritable bowel syndrome) Performed By: #### C BC, CMP #### [address] Lymphocytes (Bld) [#/Vol] 0.9 10*3/uL Low 1.00-4.8 [facility] Comment on above: Order Comment: Reaso n for Exam IBS (irritable bowel syndrome) Performed By: #### C BC, CMP #### [address] Lymphocytes/100 WBC (Bld) 20.5 % Normal . [facility] Comment on above: Order Comment: Reaso n for Exam IBS (irritable bowel syndrome) Performed By: #### C BC, CMP #### [address] MCH (RBC) [Entitic mass] 30.5 pg Normal 24.7-34.3 [facility] Comment on above: Order Comment: Reaso n for Exam IBS (irritable bowel syndrome) Performed By: #### C BC, CMP #### [address] MCV (RBC) [Entitic vol] 90.6 fL Normal 80-100 [facility] Comment on above: Order Comment: Reaso n for Exam IBS (irritable bowel syndrome) Performed By: #### C BC, CMP #### [facility] [address] Mean Corpuscular HGB Conc 33.6 g/dL Normal 32.0-35.0 [facility] Comment on above: Order Comment: Reaso n for Exam IBS (irritable bowel syndrome) Performed By: #### C BC, CMP #### [facility] [address] [place] [address] [place] Monocytes (Bld) [#/Vol] 0.4 10*3/uL Normal 0.0-0.8 [facility] Comment on above: Order Comment: Reaso n for Exam IBS (irritable bowel syndrome) Performed By: #### C BC, CMP #### [address] Monocytes/100 WBC (Bld) 8.7 % Normal . [facility] Comment on above: Order Comment: Reaso n for Exam IBS (irritable bowel syndrome) Performed By: #### C BC, CMP #### [place] [address] [place] Neutrophils (Bld) [#/Vol] 3.1 10*3/uL Normal 1.8-7.7 [facility] Comment on above: Order Comment: Reaso n for Exam IBS (irritable bowel syndrome) Performed By: #### C BC, CMP #### [place] [address] [place] Neutrophils/100 WBC (Bld) 67.7 % Normal . [facility] Comment on above: Order Comment: Reaso n for Exam IBS (irritable bowel syndrome) Performed By: #### C BC, CMP #### [facility] [address] [place] [address] [place] NRBC% 0.2 /100{WBC} Normal 0-0.5 [facility] Comment on above: Order Comment: Reaso n for Exam IBS (irritable bowel syndrome) Performed By: #### C BC, CMP #### [place] [address] [place] Platelet mean volume (Bld) [Entitic vol] 9.5 fL Normal 6.3-10.7 [facility] Comment on above: Order Comment: Reaso n for Exam IBS (irritable bowel syndrome) Performed By: #### C BC, CMP #### [facility] [address] [place] [id number] [facility] Platelets (Bld) [#/Vol] 230 10*3/uL Normal 150-450 [facility] Comment on above: Order Comment: Reaso n for Exam IBS (irritable bowel syndrome) Performed By: #### C BC, CMP #### [facility] [address] RBC (Bld) [#/Vol] 4.31 10*6/uL Normal 3.60-5.00 [facility] Comment on above: Order Comment: Reaso n for Exam IBS (irritable bowel syndrome) Performed By: #### C BC, CMP #### [facility] [address] WBC (Bld) [#/Vol] 4.5 10*3/uL Normal 3.8-11.6 [facility] Comment on above: Order Comment: Reaso n for Exam IBS (irritable bowel syndrome) Performed By: #### C BC, CMP #### [facility] [address] Comprehensive Metabolic Pane yuridia 01-14-2023 Albumin [Mass/Vol] 4.3 g/dL Normal 3.5-5.7 [facility] Comment on above: Order Comment: Reaso n for Exam IBS (irritable bowel syndrome) Performed By: #### C BC, CMP #### [facility] [address] [place] [address] [place] Albumin/Globulin [Mass ratio] 2.0 {ratio} Normal [facility] Comment on above: Order Comment: Reaso n for Exam IBS (irritable bowel syndrome) Performed By: #### C BC, CMP #### [facility] [address] [place] [address] [facility] ALP [Catalytic activity/Vol] 51 U/L Normal 34-104 [facility] Comment on above: Order Comment: Reaso n for Exam IBS (irritable bowel syndrome) Result Comment: PERF ORMED BY: [place] [address] PATHOLOGIST FORESTRY HUNTER CARY GARCIA M.D. Performed By: #### C BC, CMP #### [address] ALT [Catalytic activity/Vol] 21 U/L Normal 7-52 [facility] Comment on above: Order Comment: Reaso n for Exam IBS (irritable bowel syndrome) Performed By: #### C BC, CMP #### [address] Anion gap [Moles/Vol] 8.5 mmol/L Normal 6.0-15.0 [facility] Comment on above: Order Comment: Reaso n for Exam IBS (irritable bowel syndrome) Performed By: #### C BC, CMP #### [address] AST [Catalytic activity/Vol] 18 U/L Normal 13-39 [facility] Comment on above: Order Comment: Reaso n for Exam IBS (irritable bowel syndrome) Performed By: #### C BC, CMP #### [address] Bilirubin [Mass/Vol] 0.6 mg/dL Normal 0.3-1.0 [facility] Comment on above: Order Comment: Reaso n for Exam IBS (irritable bowel syndrome) Performed By: #### C BC, CMP #### [place] [address] [place] Calcium [Mass/Vol] 9.2 mg/dL Normal 8.6-10.3 [facility] Comment on above: Order Comment: Reaso n for Exam IBS (irritable bowel syndrome) Performed By: #### C BC, CMP #### [place] [address] [place] Chloride [Moles/Vol] 107 mmol/L Normal 98-107 [facility] Comment on above: Order Comment: Reaso n for Exam IBS (irritable bowel syndrome) Performed By: #### C BC, CMP #### [facility] [address] CO2 [Moles/Vol] 30.2 mmol/L Normal 21.0-31.0 [facility] Comment on above: Order Comment: Reaso n for Exam IBS (irritable bowel syndrome) Performed By: #### C BC, CMP #### [facility] [address] Creatinine [Mass/Vol] 0.77 mg/dL Normal 0.60-1.20 [facility] Comment on above: Order Comment: Reaso n for Exam IBS (irritable bowel syndrome) Performed By: #### C BC, CMP #### [place] [address] [place] GFR/1.73 sq M.predicted MDRD (S/P/Bld) [Vol rate/Area] mL/min/{1.73_m2} [facility] Comment on above: Order Comment: Reaso n for Exam IBS (irritable bowel syndrome) Performed By: #### C BC, CMP #### [address] Globulin (S) [Mass/Vol] 2.2 g/dL Normal [facility] Comment on above: Order Comment: Reaso n for Exam IBS (irritable bowel syndrome) Performed By: #### C BC, CMP #### [address] Glucose [Mass/Vol] 90 mg/dL Normal 70-100 [facility] Comment on above: Order Comment: Reaso n for Exam IBS (irritable bowel syndrome) Result Comment: [place] om Glucose Reference Range is dependent on time and content of last meal. Glucose of more than 200 mg/dL in a nonstressed, ambulatory subject supports the diagnosis of Diabetes Mellitus. ADA recommended reference range Performed By: #### C BC, CMP #### [address] Potassium [Moles/Vol] 4.7 mmol/L Normal 3.5-5.1 [facility] Comment on above: Order Comment: Reaso n for Exam IBS (irritable bowel syndrome) Performed By: #### C BC, CMP #### [facility] [address] [place] [address] [place] Protein [Mass/Vol] 6.5 g/dL Normal 6.4-8.9 [facility] Comment on above: Order Comment: Reaso n for Exam IBS (irritable bowel syndrome) Performed By: #### C BC, CMP #### [facility] [address] [place] [address] [facility] Sodium [Moles/Vol] 141 mmol/L Normal 136-145 [facility] Comment on above: Order Comment: Reaso n for Exam IBS (irritable bowel syndrome) Performed By: #### C BC, CMP #### [facility] [address] Urea nitrogen [Mass/Vol] 17 mg/dL Normal 7-25 [facility] Comment on above: Order Comment: Reaso n for Exam IBS (irritable bowel syndrome) Performed By: #### C BC, CMP #### [facility] [address] [place] [id number] [place] UroVysion Fish and Urine Cyt o ([facility])on 09-01-2022 [facility] Diagnosis Info Invalid Interpretation Code [facility] Comment on above: Result Comment: A:Ur [...] correlated with cytology and cystoscopy results.* CPT 55077, 31154. Microscopic Notes - Microscopic Notes - Abnormal cells 9p21 deletions: Abnormal cells aneploid events: Total cells analyzed: Hematuria: Gross Description Site ID:A color Light Yellow fixative Alcohol Received 110 mls of clear light yellow fluid with the patient's name and, Urine on the vial. Electronically signed by : on: 09/01/2022 10:58:42 Performed By: #### 1 [id number] #### [facility] [address] [place] [address] Consent for Procedure/Surger yon 08-26-2022 Consent for Procedure/Surgery [id number] .[id number] Normal [facility] Patient Educationon 08-26-19 Patient Education Oncology Cancer Screening for Women [...] tissue b (more content not included)... Normal [facility] UroVysion Fish and Urine Cyt o ( Labs)on 08-25-2022 [facility] Method of Extraction Voided Normal [facility] Comment on above: Performed By: #### 1 [id number] #### [facility] [address] [place] [address] [facility] Number of Jars 1 Invalid Interpretation Code [facility] Comment on above: Performed By: #### 1 [id number] #### [facility] [address] [place] [address] [facility] Specimen Urine Normal [facility] Comment on above: Performed By: #### 1 [id number] #### [facility] [address] [place] [address] [facility] Type of Service Technical Only Normal [facility] Comment on above: Performed By: #### 1 [id number] #### [facility] [address] [place] [address] Urology Office/Clinic Noteon 08-25-2022 Urology Office/Clinic Note [...] Using estradiol. Follow-up With When Contact Information LIV MEDEROS, Gio Ryan, URL [facility] [address], [place] [address]- Additional Instructions: 1 yr cysto/FISH/cytol/bt ck Patient [...] (tozinameran 5y-11y) vac 03/16/2021 Recorded SARS-CoV-2 mRNA (yves 5y-11y) vac 08/19/2020 Recorded SARS-CoV-2 mR (more content not included)... Normal [facility] Comment on above: Result Comment: Elec tronically Signed By: Gio PECK MD\.br\Date and Time Signed: 08/25/22 07:54 EDT\.br\Electronically Co-Signed By: Sheree Cox\.br\Date and Time Co-Signed: 08/25/22 07:53 EDT MG MAMM SCREEN 3D DELMA CADon 08-04-2022 MG MAMM SCREEN 3D DELMA CAD Patient: STACIA PARK Exam Date: 08/04/2022 : 1955 Gender:F Ordering : DR STEPHEN PRUITT . Admission #: [id number] Family : Order #: [id number] CLICK HERE TO VIEW EXAM RADIOLOGY REPORT [...] bladder/prostate cancer at age 77. LOCATION: [facility] BREAST COMPOSITION: Heterogeneously dense,which may obscure small [...] Fraga MD on 08/04/2022 at 13:48 Normal [facility] XR DEXA BONE DENSITYon 08-04 XR [...] authenticated by: ANTONY FRAGA Date: 2022-08-04 17:13 [facility] PAP ACOG PANEL 2: 30 to 65on 08-02-2022 . . Normal [facility] Comment on above: Performed By: #### [id number] #### [facility] [address] [place] [address] Dr. Antonio Macias Age Gdln ACOG Testing Comment Normal [facility] Comment on above: Result Comment: <21 or >65 or no age provided Performed By: #### [id number] #### [facility] [address] [place] [address] Dr. Antonio Macias DIAGNOSIS: Comment [facility] Comment on above: Result Comment: NEGA TIVE FOR INTRAEPITHELIAL LESION OR MALIGNANCY. CELLULAR CHANGES ASSOCIATED WITH ATROPHY ARE PRESENT. Performed By: #### [id number] #### [facility] [address] [place] [address] Dr. Antonio Macias Methodology: Comment [facility] Comment on above: Result Comment: This liquid based ThinPrep(R) pap test was screened with the use of an image guided system. Performed By: #### [id number] #### [facility] [address] [place] [address] Dr. Antonio Macias Note: Comment [facility] Comment on above: Result Comment: The Pap smear is a screening test designed to aid in the detection of premalignant and malignant conditions of the uterine cervix. It is not a diagnostic procedure and should not be used as the sole means of detecting cervical cancer. Both false-positive and false-negative reports do occur. . Performed By: #### [id number] #### [facility] [address] [place] [address] Dr. Antonio Macias Performed by: Comment Normal [facility] Comment on above: Result Comment: [facility] Administrative Assistant (ASCP) Performed By: #### [id number] #### [facility] [address] [place] [address] Dr. Antonio Macias Specimen adequacy: Comment Normal [facility] Comment on above: Result Comment: Sati sfactory for evaluation. Endocervical component may not be distinguished in cases of atrophy. Performed By: #### [id number] #### [facility] [address] [place] [address] Dr. Antonio Macias CBC AUTO DIFFon 10-09-2021 BASO # 0.0 103/ul Normal 0.0-0.1 [facility] Comment on above: Performed By: #### C BC #### [facility] [address] [place] [address] Dr. Antonio Macias Basophils/100 WBC (Bld) 0.6 % Normal 0.2-2.0 [facility] Comment on above: Performed By: #### C BC #### [facility] [address] [place] [address] Dr. Antonio Macias EO # 0.1 103/ul Normal 0.0-0.7 [facility] Comment on above: Performed By: #### C BC #### [facility] [address] [place] [address] Dr. Antonio Macias Eosinophils/100 WBC (Bld) 2.3 % Normal 0.9-7.0 [facility] Comment on above: Performed By: #### C BC #### [facility] [address] [place] [address] Dr. Antonio Macias Erythrocyte distribution width (RBC) [Ratio] 12.9 % Normal 11.0-15.0 [facility] Comment on above: Performed By: #### C BC #### [facility] [address] [place] [address] Dr. Antonio Macias Hematocrit (Bld) [Volume fraction] 41.9 % Normal 36.0-48.0 [facility] Comment on above: Performed By: #### C BC #### [facility] [address] [address] [address] Antonio Macias Hemoglobin (Bld) [Mass/Vol] 13.8 g/dL Normal 12.0-16.0 [facility] Comment on above: Performed By: #### C BC #### [facility] [address] [address] [address] Antonio Macias IG # 0.01 10e3/ul Normal 0.00-0.03 [facility] Comment on above: Performed By: #### C BC #### [facility] [address] [place] [address] Dr. Antonio Macias IG % 0.2 % Normal 0.0-0.5 [facility] Comment on above: Performed By: #### C BC #### [facility] [address] [place] [address] Dr. Antonio Macias LYMPH # 1.1 103/ul Critically low 1.2-3.8 [facility] Comment on above: Performed By: #### C BC #### [facility] [address] [place] [address] Dr. Antonio Macias Lymphocytes/100 WBC (Bld) 22.0 % Normal 20.5-60.0 [facility] Comment on above: Performed By: #### C BC #### [facility] [address] [place] [address] Dr. Antonio Macias MANUAL DIFF REQ NO Normal [facility] Comment on above: Performed By: #### C BC #### [facility] [address] [place] [address] Dr. Antonio Macias MCH (RBC) [Entitic mass] 29.9 pg Normal 26.7-34.0 [facility] Comment on above: Performed By: #### C BC #### [facility] [address] [place] [address] Dr. Antonio Macias MCHC (RBC) [Mass/Vol] 32.9 g/dL Normal 29.9-35.2 [facility] Comment on above: Performed By: #### C BC #### [facility] [address] [address] [address] Antonio Macias MCV (RBC) [Entitic vol] 90.9 fL Normal 81.0-99.0 [facility] Comment on above: Performed By: #### C BC #### [facility] [address] [address] [address] Antonio Macias MONO # 0.4 103/ul Normal 0.3-0.8 [facility] Comment on above: Performed By: #### C BC #### [facility] [address] [address] [address] Antonio Macias Monocytes/100 WBC (Bld) 8.4 % Normal 1.7-12.0 [facility] Comment on above: Performed By: #### C BC #### [facility] [address] [address] [address] Antonio Macias NEUT # 3.2 103/ul Normal 1.4-6.5 [facility] Comment on above: Performed By: #### C BC #### [facility] [address] [address] [address] Antonio Macias Neutrophils/100 WBC (Bld) 66.5 % Normal 43.0-75.0 [facility] Comment on above: Performed By: #### C BC #### [facility] [address] [address] [address] Antonio Macias Platelet mean volume (Bld) [Entitic vol] 10.4 fL Normal 9.5-13.5 [facility] Comment on above: Performed By: #### C BC #### [facility] [address] [address] [address] Antonio Macias PLT 244 103/ul Normal 150-450 [facility] Comment on above: Performed By: #### C BC #### [facility] [address] [address] [address] Antonio Macias RBC 4.61 106/ul Normal 4.20-5.40 [facility] Comment on above: Performed By: #### C BC #### [facility] [address] [address] [address] Antonio Macias WBC 4.9 103/ul Normal 4.0-11.0 [facility] Comment on above: Performed By: #### C BC #### [facility] [address] [place] [address] Dr. Antonio Macias PROF 14(COMP METB)on 022 Albumin [Mass/Vol] 4.1 g/dL Normal 3.4-5.[address] [facility] Comment on above: Performed By: #### C MP, TSH, T4 #### [facility] [address] [place] [address] Dr. Antonio Macias Albumin/Globulin [Mass ratio] 1.2 {ratio} Normal [facility] Comment on above: Performed By: #### C MP, TSH, T4 #### [facility] [address] [place] [address] Dr. Antonio Macias ALP [Catalytic activity/Vol] 120 U/L Critically high 46-116 [facility] Comment on above: Performed By: #### C MP, TSH, T4 #### [facility] [address] [place] [address] Dr. Antonio Macias ALT [Catalytic activity/Vol] 51 U/L Normal 14-59 [facility] Comment on above: Performed By: #### C MP, TSH, T4 #### [facility] [address] [place] [address] Dr. Antonio Macias Anion gap [Moles/Vol] 13.9 mmol/L Normal [facility] Comment on above: Performed By: #### C MP, TSH, T4 #### [facility] [address] [place] [address] Dr. Antonio Macias AST [Catalytic activity/Vol] 16 U/L Normal 15-37 [facility] Comment on above: Performed By: #### C MP, TSH, T4 #### [facility] [address] [place] [address] Dr. Antonio Macias Bilirubin [Mass/Vol] 0.7 mg/dL Normal 0.2-1.0 [facility] Comment on above: Performed By: #### C MP, TSH, T4 #### [facility] [address] [address] [address] Antonio Macias Calcium [Mass/Vol] 9.4 mg/dL Normal 8.5-10.[address] [facility] Comment on above: Performed By: #### C MP, TSH, T4 #### [facility] [address] [address] [address] Antonio Macias Chloride [Moles/Vol] 106 mmol/L Normal 98-107 [facility] Comment on above: Performed By: #### C MP, TSH, T4 #### [facility] [address] [address] [address] Antonio Macias CO2 [Moles/Vol] 26.6 mmol/L Normal 21.0-32.0 [facility] Comment on above: Performed By: #### C MP, TSH, T4 #### [facility] [address] [place] [address] Dr. Antonio Macias Creatinine [Mass/Vol] 0.81 mg/dL Normal 0.55-1.02 [facility] Comment on above: Performed By: #### C MP, TSH, T4 #### [facility] [address] [place] [address] Dr. Antonio Macias EGFR-AF PANAMANIAN >60 Normal >=60 [facility] Comment on above: Performed By: #### C MP, TSH, T4 #### [facility] [address] [place] [address] Dr. Antonio Macias EGFR-NON AF PANAMANIAN >60 Normal >=60 [facility] Comment on above: Performed By: #### C MP, TSH, T4 #### [facility] [address] [place] [address] Dr. Antonio Macias Globulin (S) [Mass/Vol] 3.4 g/dL Normal [facility] Comment on above: Performed By: #### C MP, TSH, T4 #### [facility] [address] [place] [address] Dr. Antonio Macias Glucose [Mass/Vol] 100 mg/dL Normal 74-[address] [facility] Comment on above: Performed By: #### C MP, TSH, T4 #### [facility] [address] [place] [address] Dr. Antonio Macias Potassium [Moles/Vol] 4.5 mmol/L Normal 3.5-5.1 [facility] Comment on above: Performed By: #### C MP, TSH, T4 #### [facility] [address] [place] [address] Dr. Antonio Macias Protein [Mass/Vol] 7.5 g/dL Normal 6.4-8.[address] [facility] Comment on above: Performed By: #### C MP, TSH, T4 #### [facility] [address] [place] [address] Dr. Antonio Macias Sodium [Moles/Vol] 142 mmol/L Normal 136-[address] [facility] Comment on above: Performed By: #### C MP, TSH, T4 #### [facility] [address] [place] [address] Dr. Antonio Macias Urea nitrogen [Mass/Vol] 18.0 mg/dL Normal 7.0-18.0 [facility] Comment on above: Performed By: #### C MP, TSH, T4 #### [facility] [address] [place] [address] Dr. Antonio Macias Urea nitrogen/Creatinin e [Mass ratio] 22.2 mg/mg Normal [facility] Comment on above: Performed By: #### C MP, TSH, T4 #### [facility] [address] [place] [address] Dr. Antonio Macias T4on 10-09-2021 T4 [Mass/Vol] 8.10 ug/dL Normal 4.80-13.90 [facility] Comment on above: Performed By: #### C MP, TSH, T4 #### [facility] [address] [place] [address] Dr. Antonio Macias TSHon 10-09-2021 TSH 1.633 uIU/mL Normal 0.358-3.740 [facility] Comment on above: Performed By: #### C MP, TSH, T4 #### [facility] [address] [address] [address] Antonio Macias XR CHEST 2 Von [...] BRENDAN WYATT Date: 2021-10-09 17:17 Normal [facility] Social History Date Type Detail Facility Start: 12-30-2021 End: 08-17-2023 Tobacco smoking status Never smoked tobacco (finding) [facility] Start: 1955 Sex Assigned At Female F [facility] Sex Assigned At Female [facility] Tobacco smoking status Never [facility] Vital Signs Date Time Vital Sign Value Performing Clinician Barbie xavier 08-17-2023 07:54-0400 Body temperature 98.6 [degF] Gio PECK [facility] 08-17-2023 07:54-0400 Diastolic blood pressure 82 mm[Hg] Gio PECK [facility] 08-17-2023 07:54-0400 Heart rate 71 /min Gio PECK [facility] 08-17-2023 07:54-0400 Respiratory rate 16 /min Gio PECK [facility] 08-17-2023 07:54-0400 Systolic blood pressure 139 mm[Hg] Gio PECK [facility] 12-01-2022 10:30-0400 Diastolic blood pressure 95 mm[Hg] DO Jose Miguel House Work Phone: [facility] 12-01-2022 10:30-0400 Heart rate 54 /min DO Jose Miguel House Work Phone: [facility] 12-01-2022 10:30-0400 Respiratory rate 16 /min DO Jose Miguel House Work Phone: [facility] 12-01-2022 10:30-0400 SaO2% (BldA) [Mass fraction] 100 % DO Jose Miguel House Work Phone: [facility] 12-01-2022 10:30-0400 Systolic blood pressure 145 mm[Hg] DO Jose Miguel House Work Phone: [facility] 12-01-2022 09:34-0400 Body height 162.56 cm DO Jose Miguel House Work Phone: [facility] 12-01-2022 09:34-0400 Body temperature 97.6 [degF] DO Jose Miguel House Work Phone: [facility] 12-01-2022 09:34-0400 Body weight 74.84 kg DO Jose Miguel House Work Phone: [facility] 12-30-2021 12:21-0400 Blood Pressure Location FAITH BRYAN [facility] 12-30-2021 12:21-0400 Diastolic blood pressure 89 mm[Hg] FAITH ADAMS [facility] 12-30-2021 12:21-0400 Heart rate 74 /min FAITH ADAMS [facility] 12-30-2021 12:21-0400 Respiratory rate 16 /min FAITH ADAMS [facility] 12-30-2021 12:21-0400 Systolic blood pressure 162 mm[Hg] FAITH ADAMS [facility] Functional Status Date Assessment Result Facility 08-17-2023 Functional Status N/A [facility] 12-30-2021 Functional Status N/A [facility] Clinical Notes 12-30-2021 to 08-17-2023 Note Date & Type Note Facility 08-17-2023 Evaluation + Plan note Diagnostic Tests [facility]rine [facility] ([facility]) 08/17/23 [facility] 08-17-2023 Hospital Discharge instructions Patient Education 08/17/2023 [...] if anything looks unusual. Women with a lgwjiz-gueq-lmuwus risk for skin cancer may want to see a security compliance specialist (precision machine operator) for an annual body check. What are the benefits of screening? Cancer screening is done to look for cancer in the very early stages, before it spreads and becomes harder to treat and before you would start to notice symptoms. Finding cancer early improves the chances of successful treatment. It may save your life. Where to find more information [place]: www.cancer.org Centers for Disease Control and Prevention: www.cdc.gov National Cancer [place]: www.cancer.gov U.S. Department of Health and Human [...] provider. Document Revised: 08/17/2021 Document Reviewed: 02/15/2020 [employer] Patient Education 2022 [employer]. Follow Up Care 07/13/2023 10:02:01 With:LIV MEDEROS, Gio Ryan, URL Address: [facility] [address], [place] [address]- When: Unknown [facility] Early 12-01-2022 Procedure note [facility] 12-30-2021 Evaluation + Plan note Diagnostic Tests PendingUTI ([facility]) 12/30/21 [facility] 12-30-2021 Hospital Discharge instructions Follow Up Care 12/30/2021 09:49:55 With:FAITH ADAMS PA-C, URL Address: [address] [place] [phone] Business (1) When: only if needed [facility] Evaluation note No assessment inform ation available [facility] Work Phone: History and physical note Note Date/Time December 01, 2022 9:51am [facility] [address] [place] [address] Gastroenterology H&P Signed Patient: Stacia Park MR#: [id number] : 1955 Acct:[id number] Age/Sex: 67 / F Adm Date: 3 Loc: Room: Type: [facility] Attending Dr: Jose Gutierrez MD Copies to: Jose Gutierrez MD [facility], DO~ Date of Service: 12/01/2022 HISTORY & [...] Gutierrez MD Documented By: Jose Gutierrez MD 12/01/22 0950 Signed By: <Electronically signed by Jose Gutierrez MD> 12/01/22 0951 [facility] Work Phone: Hospital course Narrative No data available for this section [facility] Hospital Discharge instructions Additional Instructions DISCHARGE INSTRUCTIONS [...] years. -Follow up with PCP. -Office number [phone].[facility] Work Phone: Hospital Discharge instructions No data available for this section [facility] No data available for this section [facility] Summary Purpose Family History No Family History [...] content) Team Status: Active Member Role Status Dates Jose Miguel Phillips DO Primary Care Provider Active Team Status: Inactive Member Role Status Dates Jose Miguel Phillips DO Primary Care Provider Active Jose Gutierrez MD Attending Provider Active INFORMATION SOURCE (unrecogn ized section and content) DATE CREATED AUTHOR 08/12/2022 [facility] DATE CREATED AUTHOR AUTHOR'S ORGANIZ ATION 01/16/2023 [facility] DATE CREATED AUTHOR AUTHOR'S ORGANIZ ATION 08/09/2023 [facility] DATE CREATED AUTHOR AUTHOR'S ORGANIZ ATION 08/21/2023 [facility] DATE CREATED AUTHOR AUTHOR'S ORGANIZ ATION 08/25/2023 [facility] FOR RECORDS PERTAINING TO PATIENTS WHO ARE [...] BE BASED ON THE PRIMARY CLINICAL RECORDS. [employer] [facility]. provides no warranty or guarantee of the accuracy or completeness of information in this document.
--- NOTE | 2023-09-14 08:28 | XR_ITS ---
The [address] [address] Patient Name: MARYCRUZ BROUSSARD MRN: [id number] date: 1955 Sex: F Assigned Patient Location: LAB Current Patient Location: LAB Accession/Order Number: [id number] Exam Date: 09/14/2023 08:32 Report Date: 09/14/2023 13:07 At the request of: SOLEDAD RICHARDSON Procedure: XR chest 2V EXAMINATION: XR chest 2V HISTORY: Chronic Cough R05.3 COMPARISON: 10/09/2021 TECHNIQUE: PA and lateral FINDINGS: LUNGS: No significant pulmonary parenchymal abnormalities. VASCULATURE: No increased pulmonary vasculature. PLEURA: No pneumothorax, effusion, or pleural thickening. CARDIAC: No cardiomegaly or cardiac silhouette abnormality. MEDIASTINUM: No visible mass or adenopathy. BONES: No fracture or visible bone lesion. OTHER: Negative. XR/XR chest 2V IMPRESSION: No acute cardiopulmonary process Electronically authenticated by: ANTONY FRAGA Date: 09/14/2023 13:07
[2023-09-14 08:49] LABS: Estimated Average Glucose 105 mg/dL; Glycohemoglobin A1C 5.3 % (4.5-6.2)
[2023-09-14 08:52] LABS: Basophils Percent Auto 1.2 % (0.2-2.0); Eosinophils Absolute Auto 0.1 10^3/uL (0.0-0.7); Eosinophils Percent Auto 2.1 % (0.9-7.0); Hematocrit 37.6 % (36.0-48.0); Hemoglobin 12.1 g/dL (12.0-16.0); Immature Granulocytes Abs Auto 0.01 10^3/uL (0.00-0.03); Immature Granulocytes Pct Auto 0.3 % (0.0-0.5); Lymphocytes Absolute Auto 0.9 10^3/uL (1.2-3.8); Lymphocytes Percent Auto 27.4 % (20.5-60.0); Mean Corpuscular HGB Conc 32.2 g/dL (29.9-35.2); Mean Corpuscular Hemoglobin 29.9 pg (26.7-34.0); Mean Corpuscular Volume 92.8 fL (81.0-99.0); Mean Platelet Volume 10.8 fL (9.5-13.5); Monocytes Absolute Auto 0.3 10^3/uL (0.3-0.8); Monocytes Percent Auto 9.4 % (1.7-12.0); Neutrophils Percent Auto 59.6 % (43.0-75.0); Platelet Count 205 10^3/uL (150-450); Red Blood Count 4.05 10^6/uL (4.20-5.40); Red Cell Distribution Width 12.8 % (11.0-15.0); White Blood Count 3.3 10^3/uL (4.0-11.0)
[2023-09-14 09:02] LABS: Alanine Aminotransferase 32 U/L (14-59); Albumin Globulin Ratio 1.1; Albumin Level 3.5 g/dL (3.4-5.0); Alkaline Phosphatase 55 U/L (46-116); Anion Gap 12.2; Aspartate Amino Transferase 20 U/L (15-37); BUN Creatinine Ratio 22.7; Bilirubin Total 0.8 mg/dL (0.2-1.0); Calcium 8.3 mg/dL (8.5-10.1); Chloride 106 mmol/L (98-107); Estimated GFR (African America >60 (>=60); Estimated GFR (Non-African Ame >60 (>=60); Globulin 3.3 g/dL; Glucose 91 mg/dL (74-106); Potassium 4.2 mmol/L (3.5-5.1); Sodium 142 mmol/L (136-145); Total Protein 6.8 g/dL (6.4-8.2)
[2023-09-14 10:05] LABS: Cholesterol 163 mg/dL (<=200); Free T3 2.74 pg/mL (2.18-3.98); HDL Cholesterol 54 mg/dL (40-60); Thyroid Stimulating Hormone 3.417 uIU/mL (0.358-3.740); Triglycerides 75 mg/dL (<=150)
[2023-09-15 06:10] LABS: Insulin 2.8 uIU/mL (2.6-24.9)
== END 2023-09-14 08:15 | disposition home or self-care (01) ==
LOC: LAB 08:14
PROVIDERS: PCP Nurse Practitioner Family; Visit Provider Nurse Practitioner Family
DX: R53.83 Other fatigue (principal); R05.3 Chronic cough
CPT/HCPCS: 36415; 71046; 80053; 80061; 82306; 83036; 83525; 84436; 84443; 84481; 85025

== ENCOUNTER 2023-09-27 09:15 | Outpatient (OUT) | payer MEDICARE, OTHER, SELFPAY ==
--- OUTSIDE RECORDS SUMMARY | 2023-09-27 09:40 | XMS_ITS | CCD ---
Author Organization [facility] CliniSyfl Care Team Providers Care Electrical Maintenance Technician Name Role Phone Jose Miguel Phillips Primary Care Physician EDMOND ., DR MITCHELL Admitting Unavailabl e KARASIK ., DR MITCHELL Attending Unavailabl e KARASIK ., DR MITCHELL Consulting Unavailabl e JACQUELINE, DR GILLESPIE Primary Care Unavailable ELGIN, DR ANTONY Maldonado Consulting Unavailable GRIMES, DR GILLESPIE Consulting Unavailable GRIMES, DR GILLESPIE Primary Care Unavailable JACQUELINE, DR GILLESPIE Admitting Unavailable JACQUELINE, DR GILLESPIE Attending Unavailable BRENDAN WYATT Consulting Unavailable GRIMES, DR GILLESPIE Attending Unavailable GRIMES, DR GILLESPIE Consulting Unavailable GRIMES, DR GILLESPIE Primary Care Unavailable JACQUELINE, DR GILLESPIE Admitting Unavailable KARASIK ., DR MITCHELL Attending Unavailabl e KARASIK ., DR MITCHELL Consulting Unavailabl e EDMOND ., DR MITCHELL Admitting Unavailabl e JACQUELINE, DR GILLESPIE Primary Care Unavailable Jacqueline, DO Gillespie Primary Care Provider MD Jose Gutierrez Attending Provider Jose Miguel Phillips Primary Care Unavailable Jose Gutierrez Admitting Unavailable Jose Gutierrez Attending Unavailable NO FAMILY, PHYSICIAN Primary Care Unavailable Mario Chavez Admitting Unavailable Mario Chavez Attending Unavailable CARLY MONZON Attending Unavailable APLING, RIVAS B Referring Unavailable CARLY MONZON Attending Unavailable APLING, RIVAS B Referring Unavailable CARLY MONZON Attending Unavailable APLING, RIVAS B Referring Unavailable NA, CARLY T Attending Unavailable APLING, [...] Medication Allergies] Propensity to adverse reactions (disorder) [facility] Repository Medications Current Medications Medication Drug Class(es) [...] for 5 day(s), 10 tab(s), Refill(s) 0, [facility]/pharmacy #[id number], 162, cm, 12/30/21 12:22:00 EDT, Height/Length [...] procedure, # 2 tab(s), Refills(s) 0, Pharmacy: [facility]/pharmacy #[id number], 162, cm, 08/17/23 7:56:00 EDT, Height/Length Dosing, 80, kg, 08/17/23 7:56:00 EDT, Weight Dosing Start Date: 08/17/23 Status: Ordered Start: 08-17-2021 take 1 tablet by kody th once daily Cipro 500 mg Tab 500 mg = 1 tab(s), Oral, Daily, Take 1 tablet the day before the procedure and 1 tablet after the procedure, # 2 tab(s), Refills(s) 0, Pharmacy: [facility]/pharmacy #[id number], 162, cm, 08/05/20 12:19:00 EDT, Height/Length [...] & UC Diagnosis Info Invalid Interpretation Code [facility] Comment on above: Result Comment: A:Ur ine,Urine:Voided [...] on: 08/23/2023 12:26:36 Performed By: #### 1 [id number] #### [facility] [address] [place] [address] Consent for Procedure/Surger yon 08-19-2023 Consent for Procedure/Surgery [id number]. [id number] Normal [facility] Ambulatory Visit Summaryon 0 08-17-2023 Ambulatory Visit [...] Following Appointments Follow Up with MASSIMO MEDEROS, Gio Ryan, URL When: Where: [facility] [address], [place] [address]- Medications What How Much When Instructions Unchanged [...] not begin (more content not included)... Normal [facility] Patient Educationon 08-17-19 Patient Education Oncology Cancer [...] tissue b (more content not included)... Normal [facility] UroVysion Fish and Urine Cyt o ([facility])on 08-17-2023 [facility] Method of Extraction Voided Normal [facility] Comment on above: Performed By: #### 1 [id number] #### [facility] [address] [place] [address] [facility] Number of Jars 1 Invalid Interpretation Code [facility] Comment on above: Performed By: #### 1 [id number] #### [facility] [address] [place] [address] [facility] Specimen Urine Normal [facility] Comment on above: Performed By: #### 1 [id number] #### [facility] [address] [place] [address] [facility] Type of Service Technical Only Normal [facility] Comment on above: Performed By: #### 1 [id number] #### [facility] [address] [place] [address] Urology Office/Clinic Noteon 08-17-2023 Urology Office/Clinic Note [...] With When Contact Information MASSIMO MEDEROS, Gio Ryna, URL [facility] [address] , [place] [address]- Additional Instructions: 4 mos cysto Patient Education [...] of f (more content not included)... Normal [facility] Comment on above: Result Comment: Elec tronically [...] year Cysto/FISH/cytol (bt ck) August 2024 Normal [facility] Reminders - From: Tiffanie Carroll To: [facility] - Recalls Peck; Cc: Tiffanie Carroll; Sent: 08/27/2022 08:36:40 EDT Show up: 07/04/2023 08:36:00 EDT Subject: Cysto/FISH/cytol Due Date/Time: 07/25/2023 08:36:00 EDT Reminder/Recall Patient is due in August 2023 for 1 year cysto/fish/cytol (bt ck) l/m on vm.LG l/m on vm.LG Pt called back. Sched for 08/17/23 in [place] office. LG Normal [facility] Complete Blood Count Auto Di ffon 01-14-2023 Basophils (Bld) [#/Vol] 0.0 10*3/uL Normal 0.0-0.2 [facility] Comment on above: Order Comment: Reaso n for Exam IBS (irritable bowel syndrome) Result Comment: PERF ORMED BY: [place] [address] PATHOLOGIST DENTAL EQUIPMENT TECHNICIAN CARY GARCIA M.D. Performed By: #### C BC, CMP #### [facility] [address] [place] [address] [place] Basophils/100 WBC (Bld) 0.9 % Normal . [facility] Comment on above: Order Comment: Reaso n for Exam IBS (irritable bowel syndrome) Performed By: #### C BC, CMP #### [facility] [address] [place] [address] [place] Eosinophils (Bld) [#/Vol] 0.1 10*3/uL Normal 0.0-0.45 [facility] Comment on above: Order Comment: Reaso n for Exam IBS (irritable bowel syndrome) Performed By: #### C BC, CMP #### [facility] [address] Eosinophils/100 WBC (Bld) 2.2 % Normal . [facility] Comment on above: Order Comment: Reaso n for Exam IBS (irritable bowel syndrome) Performed By: #### C BC, CMP #### [address] Erythrocyte distribution width (RBC) [Ratio] 13.7 % Normal 11.9-15.3 [facility] Comment on above: Order Comment: Reaso n for Exam IBS (irritable bowel syndrome) Performed By: #### C BC, CMP #### [address] Hematocrit (Bld) [Volume fraction] 39.1 % Normal 34.0-46.4 [facility] Comment on above: Order Comment: Reaso n for Exam IBS (irritable bowel syndrome) Performed By: #### C BC, CMP #### [address] Hemoglobin (Bld) [Mass/Vol] 13.1 g/dL Normal 11.8-15.4 [facility] Comment on above: Order Comment: Reaso n for Exam IBS (irritable bowel syndrome) Performed By: #### C BC, CMP #### [place] [address] [place] Lymphocytes (Bld) [#/Vol] 0.9 10*3/uL Low 1.00-4.8 [facility] Comment on above: Order Comment: Reaso n for Exam IBS (irritable bowel syndrome) Performed By: #### C BC, CMP #### [place] [address] [place] Lymphocytes/100 WBC (Bld) 20.5 % Normal . [facility] Comment on above: Order Comment: Reaso n for Exam IBS (irritable bowel syndrome) Performed By: #### C BC, CMP #### [facility] [address] MCH (RBC) [Entitic mass] 30.5 pg Normal 24.7-34.3 [facility] Comment on above: Order Comment: Reaso n for Exam IBS (irritable bowel syndrome) Performed By: #### C BC, CMP #### [facility] [address] MCV (RBC) [Entitic vol] 90.6 fL Normal 80-100 [facility] Comment on above: Order Comment: Reaso n for Exam IBS (irritable bowel syndrome) Performed By: #### C BC, CMP #### [address] Mean Corpuscular HGB Conc 33.6 g/dL Normal 32.0-35.0 [facility] Comment on above: Order Comment: Reaso n for Exam IBS (irritable bowel syndrome) Performed By: #### C BC, CMP #### [place] [address] [place] Monocytes (Bld) [#/Vol] 0.4 10*3/uL Normal 0.0-0.8 [facility] Comment on above: Order Comment: Reaso n for Exam IBS (irritable bowel syndrome) Performed By: #### C BC, CMP #### [place] [address] [place] Monocytes/100 WBC (Bld) 8.7 % Normal . [facility] Comment on above: Order Comment: Reaso n for Exam IBS (irritable bowel syndrome) Performed By: #### C BC, CMP #### [place] [address] [place] Neutrophils (Bld) [#/Vol] 3.1 10*3/uL Normal 1.8-7.7 [facility] Comment on above: Order Comment: Reaso n for Exam IBS (irritable bowel syndrome) Performed By: #### C BC, CMP #### [place] [address] [place] Neutrophils/100 WBC (Bld) 67.7 % Normal . [facility] Comment on above: Order Comment: Reaso n for Exam IBS (irritable bowel syndrome) Performed By: #### C BC, CMP #### [facility] [address] NRBC% 0.2 /100{WBC} Normal 0-0.5 [facility] Comment on above: Order Comment: Reaso n for Exam IBS (irritable bowel syndrome) Performed By: #### C BC, CMP #### [facility] [address] Platelet mean volume (Bld) [Entitic vol] 9.5 fL Normal 6.3-10.7 [facility] Comment on above: Order Comment: Reaso n for Exam IBS (irritable bowel syndrome) Performed By: #### C BC, CMP #### [facility] [address] Platelets (Bld) [#/Vol] 230 10*3/uL Normal 150-450 [facility] Comment on above: Order Comment: Reaso n for Exam IBS (irritable bowel syndrome) Performed By: #### C BC, CMP #### [facility] [address] RBC (Bld) [#/Vol] 4.31 10*6/uL Normal 3.60-5.00 [facility] Comment on above: Order Comment: Reaso n for Exam IBS (irritable bowel syndrome) Performed By: #### C BC, CMP #### [facility] [address] WBC (Bld) [#/Vol] 4.5 10*3/uL Normal 3.8-11.6 [facility] Comment on above: Order Comment: Reaso n for Exam IBS (irritable bowel syndrome) Performed By: #### C BC, CMP #### [facility] [address] Comprehensive Metabolic Pane yuridia 01-14-2023 Albumin [Mass/Vol] 4.3 g/dL Normal 3.5-5.7 [facility] Comment on above: Order Comment: Reaso n for Exam IBS (irritable bowel syndrome) Performed By: #### C BC, CMP #### [facility] [address] [place] [address] Albumin/Globulin [Mass ratio] 2.0 {ratio} Normal [facility] Comment on above: Order Comment: Reaso n for Exam IBS (irritable bowel syndrome) Performed By: #### C BC, CMP #### [address] ALP [Catalytic activity/Vol] 51 U/L Normal 34-104 [facility] Comment on above: Order Comment: Reaso n for Exam IBS (irritable bowel syndrome) Result Comment: PERF ORMED BY: [place] [address] PATHOLOGIST DENTAL EQUIPMENT TECHNICIAN CARY GARCIA M.D. Performed By: #### C BC, CMP #### [address] ALT [Catalytic activity/Vol] 21 U/L Normal 7-52 [facility] Comment on above: Order Comment: Reaso n for Exam IBS (irritable bowel syndrome) Performed By: #### C BC, CMP #### [address] Anion gap [Moles/Vol] 8.5 mmol/L Normal 6.0-15.0 [facility] Comment on above: Order Comment: Reaso n for Exam IBS (irritable bowel syndrome) Performed By: #### C BC, CMP #### [address] AST [Catalytic activity/Vol] 18 U/L Normal 13-39 [facility] Comment on above: Order Comment: Reaso n for Exam IBS (irritable bowel syndrome) Performed By: #### C BC, CMP #### [address] Bilirubin [Mass/Vol] 0.6 mg/dL Normal 0.3-1.0 [facility] Comment on above: Order Comment: Reaso n for Exam IBS (irritable bowel syndrome) Performed By: #### C BC, CMP #### [facility] [address] Calcium [Mass/Vol] 9.2 mg/dL Normal 8.6-10.3 [facility] Comment on above: Order Comment: Reaso n for Exam IBS (irritable bowel syndrome) Performed By: #### C BC, CMP #### [facility] [address] [place] [address] [place] Chloride [Moles/Vol] 107 mmol/L Normal 98-107 [facility] Comment on above: Order Comment: Reaso n for Exam IBS (irritable bowel syndrome) Performed By: #### C BC, CMP #### [facility] [address] CO2 [Moles/Vol] 30.2 mmol/L Normal 21.0-31.0 [facility] Comment on above: Order Comment: Reaso n for Exam IBS (irritable bowel syndrome) Performed By: #### C BC, CMP #### [facility] [address] Creatinine [Mass/Vol] 0.77 mg/dL Normal 0.60-1.20 [facility] Comment on above: Order Comment: Reaso n for Exam IBS (irritable bowel syndrome) Performed By: #### C BC, CMP #### [facility] [address] [place] [address] [place] GFR/1.73 sq M.predicted MDRD (S/P/Bld) [Vol rate/Area] mL/min/{1.73_m2} [facility] Comment on above: Order Comment: Reaso n for Exam IBS (irritable bowel syndrome) Performed By: #### C BC, CMP #### [facility] [address] [place] [address] [place] Globulin (S) [Mass/Vol] 2.2 g/dL [facility] Comment on above: Order Comment: Reaso n for Exam IBS (irritable bowel syndrome) Performed By: #### C BC, CMP #### [facility] [address] Glucose [Mass/Vol] 90 mg/dL Normal 70-100 [facility] Comment on above: Order Comment: Reaso n for Exam IBS (irritable bowel syndrome) Result Comment: [place] Glucose Reference Range is dependent on time and content of last meal. Glucose of more than 200 mg/dL in a nonstressed, ambulatory subject supports the diagnosis of Diabetes Mellitus. ADA recommended reference range Performed By: #### C BC, CMP #### [facility] [address] Potassium [Moles/Vol] 4.7 mmol/L Normal 3.5-5.1 [facility] Comment on above: Order Comment: Reaso n for Exam IBS (irritable bowel syndrome) Performed By: #### C BC, CMP #### [facility] [address] Protein [Mass/Vol] 6.5 g/dL Normal 6.4-8.9 [facility] Comment on above: Order Comment: Reaso n for Exam IBS (irritable bowel syndrome) Performed By: #### C BC, CMP #### [facility] [address] [place] [id number] [place] Sodium [Moles/Vol] 141 mmol/L Normal 136-145 [facility] Comment on above: Order Comment: Reaso n for Exam IBS (irritable bowel syndrome) Performed By: #### C BC, CMP #### [facility] [address] [place] [id number] [place] Urea nitrogen [Mass/Vol] 17 mg/dL Normal 7-25 [facility] Comment on above: Order Comment: Reaso n for Exam IBS (irritable bowel syndrome) Performed By: #### C BC, CMP #### [facility] [address] [place] [id number] [place] UroVysion Fish and Urine Cyt o ([facility])on 09-01-2022 [facility] & UC Diagnosis Info Invalid Interpretation Code [facility] Comment on above: Result Comment: A:Ur ine,Urine:Voided [...] correlated with cytology and cystoscopy results.* CPT 78473, 95433. Microscopic Notes - Microscopic Notes - Abnormal cells 9p21 deletions: Abnormal cells aneploid events: Total cells analyzed: Hematuria: Gross Description Site ID:A color Light Yellow fixative Alcohol Received 110 mls of clear light yellow fluid with the patient's name and, Urine on the vial. Electronically signed by : on: 09/01/2022 10:58:42 Performed By: #### 1 [id number] #### [facility] [address] [place] [address] Consent for Procedure/Surger yon 08-26-2022 Consent for Procedure/Surgery [id number] Normal [facility] Patient Educationon 08-26-19 23 Patient Education Oncology [...] tissue b (more content not included)... Normal [facility] UroVysion Fish and Urine Cyt o ( Labs)on 08-25-2022 [facility] Method of Extraction Voided Normal [facility] Comment on above: Performed By: #### 1 [id number] #### [facility] [address] [place] [address] [facility] Number of Jars 1 Invalid Interpretation Code [facility] Comment on above: Performed By: #### 1 [id number] #### [facility] [address] [place] [address] [facility] Specimen Urine Normal [facility] Comment on above: Performed By: #### 1 [id number] #### [facility] [address] [place] [address] [facility] Type of Service Technical Only Normal [facility] Comment on above: Performed By: #### 1 [id number] #### [facility] [address] [facility] [place] [address] Urology Office/Clinic Noteon 08-25-2022 Urology Office/Clinic Note [...] [facility] [address], [place] [address]- Additional Instructions: 1 yr cysto/FISH/cytol/bt ck Patient [...] SARS-CoV-2 mR (more content not included)... Normal [facility] Comment on above: Result Comment: Elec tronically Signed By: Gio PECK MD\.br\Date and Time Signed: 08/25/22 07:54 EDT\.br\Electronically Co-Signed By: Sheree Cox\.br\Date and Time Co-Signed: 08/25/22 07:53 EDT MG MAMM SCREEN 3D DELMA CADon 08-04-2022 MG MAMM SCREEN 3D DELMA CAD Patient: STACIA PARK Exam Date: 08/04/2022 : 1955 Gender:F Ordering : DR STEPHEN PRUITT . Admission #: [id number] Family : Order #: [id number] CLICK HERE TO VIEW EXAM RADIOLOGY REPORT [...] bladder/prostate cancer at age 77. LOCATION: [facility] BREAST COMPOSITION: Heterogeneously dense,which may obscure [...] Fraga MD on 08/04/2022 at 13:48 Normal [facility] XR DEXA BONE DENSITYon 08-04 XR [...] by: ANTONY FRAGA Date: 2022-08-04 17:13 Normal [facility] PAP ACOG PANEL 2: 30 to 65on 08-02-2022 . . Normal [facility] Comment on above: Performed By: #### 4 [id number] #### [facility] [address] [address] [address] Antonio Macias Age Gdln ACOG Testing Comment Normal [facility] Comment on above: Result Comment: <21 or >65 or no age provided Performed By: #### 4 [id number] #### [facility] [address] [address] [address] Antonio Macias DIAGNOSIS: Comment [facility] Comment on above: Result Comment: NEGA TIVE FOR INTRAEPITHELIAL LESION OR MALIGNANCY. CELLULAR CHANGES ASSOCIATED WITH ATROPHY ARE PRESENT. Performed By: #### 4 [id number] #### [facility] [address] [address] [address] Antonio Macias Methodology: Comment Normal [facility] Comment on above: Result Comment: This liquid based ThinPrep(R) pap test was screened with the use of an image guided system. Performed By: #### 4 [id number] #### [facility] [address] [place] [address] Dr. Antonio Macias Note: Comment Normal [facility] Comment on above: Result Comment: The Pap smear is a screening test designed to aid in the detection of premalignant and malignant conditions of the uterine cervix. It is not a diagnostic procedure and should not be used as the sole means of detecting cervical cancer. Both false-positive and false-negative reports do occur. . Performed By: #### 4 [id number] #### [facility] [address] [place] [address] Dr. Antonio Macias Performed by: Comment Normal [facility] Comment on above: Result Comment: Khalif Louis Director Of Outside Sales (ASCP) Performed By: #### 4 [id number] #### [facility] [address] [place] [address] Dr. Antonio Macias Specimen adequacy: Comment Normal [facility] Comment on above: Result Comment: Sati sfactory for evaluation. Endocervical component may not be distinguished in cases of atrophy. Performed By: #### 4 [id number] #### [facility] [address] [place] [address] Dr. Antonio Macias CBC AUTO DIFFon 10-09-2021 BASO # 0.0 103/ul Normal 0.0-0.1 [facility] Comment on above: Performed By: #### C BC #### [facility] [address] [place] [address] Dr. Antonio Macias Basophils/100 WBC (Bld) 0.6 % Normal 0.2-2.0 [facility] Comment on above: Performed By: #### C BC #### [facility] [address] [place] [address] Dr. Antonio Macias EO # 0.1 103/ul Normal 0.0-0.7 [facility] Comment on above: Performed By: #### C BC #### [facility] [address] [place] [address] Dr. Antonio Macias Eosinophils/100 WBC (Bld) 2.3 % Normal 0.9-7.0 [facility] Comment on above: Performed By: #### C BC #### [facility] [address] [place] [address] Dr. Antonio Macias Erythrocyte distribution width (RBC) [Ratio] 12.9 % Normal 11.0-15.0 [facility] Comment on above: Performed By: #### C BC #### [facility] [address] [place] [address] Dr. Antonio Macias Hematocrit (Bld) [Volume fraction] 41.9 % Normal 36.0-48.0 [facility] Comment on above: Performed By: #### C BC #### [facility] [address] [place] [address] Dr. Antonio Macias Hemoglobin (Bld) [Mass/Vol] 13.8 g/dL Normal 12.0-16.0 [facility] Comment on above: Performed By: #### C BC #### [facility] [address] [place] [address] Dr. Antonio Macias IG # 0.01 10e3/ul Normal 0.00-0.03 [facility] Comment on above: Performed By: #### C BC #### [facility] [address] [place] [address] Dr. Antonio Macias IG % 0.2 % Normal 0.0-0.5 [facility] Comment on above: Performed By: #### C BC #### [facility] [address] [place] [address] Dr. Antonio Macias LYMPH # 1.1 103/ul Critically low 1.2-3.8 [facility] Comment on above: Performed By: #### C BC #### [facility] [address] [place] [address] Dr. Antonio Macias Lymphocytes/100 WBC (Bld) 22.0 % Normal 20.5-60.0 [facility] Comment on above: Performed By: #### C BC #### [facility] [address] [place] [address] Dr. Antonio Macias MANUAL DIFF REQ NO Normal [facility] Comment on above: Performed By: #### C BC #### [facility] [address] [place] [address] Dr. Antonio Macias MCH (RBC) [Entitic mass] 29.9 pg Normal 26.7-34.0 [facility] Comment on above: Performed By: #### C BC #### [facility] [address] [place] [address] Dr. Antonio Macias MCHC (RBC) [Mass/Vol] 32.9 g/dL Normal 29.9-35.2 [facility] Comment on above: Performed By: #### C BC #### [facility] [address] [place] [address] Dr. Antonio Macias MCV (RBC) [Entitic vol] 90.9 fL Normal 81.0-99.0 [facility] Comment on above: Performed By: #### C BC #### [facility] [address] [place] [address] Dr. Antonio Macias MONO # 0.4 103/ul Normal 0.3-0.8 [facility] Comment on above: Performed By: #### C BC #### [facility] [address] [place] [address] Dr. Antonio Macias Monocytes/100 WBC (Bld) 8.4 % Normal 1.7-12.0 [facility] Comment on above: Performed By: #### C BC #### [facility] [address] [place] [address] Dr. Antonio Macias NEUT # 3.2 103/ul Normal 1.4-6.5 [facility] Comment on above: Performed By: #### C BC #### [facility] [address] [place] [address] Dr. Antonio Macias Neutrophils/100 WBC (Bld) 66.5 % Normal 43.0-75.0 [facility] Comment on above: Performed By: #### C BC #### [facility] [address] [place] [address] Dr. Antonio Macias Platelet mean volume (Bld) [Entitic vol] 10.4 fL Normal 9.5-13.5 [facility] Comment on above: Performed By: #### C BC #### [facility] [address] [place] [address] Dr. Antonio Macias PLT 244 103/ul Normal 150-450 [facility] Comment on above: Performed By: #### C BC #### [facility] [address] [place] [address] Dr. Antonio Macias RBC 4.61 106/ul Normal 4.20-5.40 [facility] Comment on above: Performed By: #### C BC #### [facility] [address] [place] [address] Dr. Antonio Macias WBC 4.9 103/ul Normal 4.0-11.0 [facility] Comment on above: Performed By: #### C BC #### [facility] [address] [place] [address] Dr. Antonio Macias PROF 14(COMP METB)on 022 Albumin [Mass/Vol] 4.1 g/dL Normal 3.4-5.0 [facility] Comment on above: Performed By: #### C MP, TSH, T4 #### [facility] [address] [place] [address] Dr. Antonio Macias Albumin/Globulin [Mass ratio] 1.2 {ratio} Normal [facility] Comment on above: Performed By: #### C MP, TSH, T4 #### [facility] [address] [place] [address] Dr. Antonio Macias ALP [Catalytic activity/Vol] 120 U/L Critically high 46-116 [facility] Comment on above: Performed By: #### C MP, TSH, T4 #### [facility] [address] [place] [address] Dr. Antonio Macias ALT [Catalytic activity/Vol] 51 U/L Normal 14-59 [facility] Comment on above: Performed By: #### C MP, TSH, T4 #### [facility] [address] [place] [address] Dr. Antonio Macias Anion gap [Moles/Vol] 13.9 mmol/L Normal [facility] Comment on above: Performed By: #### C MP, TSH, T4 #### [facility] [address] [place] [address] Dr. Antonio Macias AST [Catalytic activity/Vol] 16 U/L Normal 15-37 [facility] Comment on above: Performed By: #### C MP, TSH, T4 #### [facility] [address] [place] [address] Dr. Antonio Macias Bilirubin [Mass/Vol] 0.7 mg/dL Normal 0.2-1.0 [facility] Comment on above: Performed By: #### C MP, TSH, T4 #### [facility] [address] [place] [address] Dr. Antonio Macias Calcium [Mass/Vol] 9.4 mg/dL Normal 8.5-10.1 [facility] Comment on above: Performed By: #### C MP, TSH, T4 #### [facility] [address] [place] [address] Dr. Antonio Macias Chloride [Moles/Vol] 106 mmol/L Normal 98-107 [facility] Comment on above: Performed By: #### C MP, TSH, T4 #### [facility] [address] [place] [address] Dr. Antonio Macias CO2 [Moles/Vol] 26.6 mmol/L Normal 21.0-32.0 [facility] Comment on above: Performed By: #### C MP, TSH, T4 #### [facility] [address] [place] [address] Dr. Antonio Macias Creatinine [Mass/Vol] 0.81 mg/dL Normal 0.55-1.02 [facility] Comment on above: Performed By: #### C MP, TSH, T4 #### [facility] [address] [place] [address] Dr. Antonio Macias EGFR-AF HONDURAN >60 Normal >=60 [facility] Comment on above: Performed By: #### C MP, TSH, T4 #### [facility] [address] [place] [address] Dr. Antonio Macias EGFR-NON AF HONDURAN >60 Normal >=60 [facility] Comment on above: Performed By: #### C MP, TSH, T4 #### [facility] [address] [place] [address] Dr. Antonio Macias Globulin (S) [Mass/Vol] 3.4 g/dL Normal [facility] Comment on above: Performed By: #### C MP, TSH, T4 #### [facility] [address] [place] [address] Dr. Antonio Macias Glucose [Mass/Vol] 100 mg/dL Normal 74-106 [facility] Comment on above: Performed By: #### C MP, TSH, T4 #### [facility] [address] [place] [address] Dr. Antonio Macias Potassium [Moles/Vol] 4.5 mmol/L Normal 3.5-5.1 [facility] Comment on above: Performed By: #### C MP, TSH, T4 #### [facility] [address] [place] [address] Dr. Antonio Macias Protein [Mass/Vol] 7.5 g/dL Normal 6.4-8.2 [facility] Comment on above: Performed By: #### C MP, TSH, T4 #### [facility] [address] [place] [address] Dr. Antonio Macias Sodium [Moles/Vol] 142 mmol/L Normal 136-145 [facility] Comment on above: Performed By: #### C MP, TSH, T4 #### [facility] [address] [place] [address] Dr. Antonio Macias Urea nitrogen [Mass/Vol] 18.0 mg/dL Normal 7.0-18.0 [facility] Comment on above: Performed By: #### C MP, TSH, T4 #### [facility] [address] [place] [address] Dr. Antonio Macias Urea nitrogen/Creatinin e [Mass ratio] 22.2 mg/mg Normal [facility] Comment on above: Performed By: #### C MP, TSH, T4 #### [facility] [address] [place], [place] [address] Dr. Antonio Maicas T4on 10-09-2021 T4 [Mass/Vol] 8.10 ug/dL Normal 4.80-13.90 [facility] Comment on above: Performed By: #### C MP, TSH, T4 #### [facility] [address] [place], [place] [address] Dr. Antonio Macias TSHon 10-09-2021 TSH 1.633 uIU/mL Normal 0.358-3.740 [facility] Comment on above: Performed By: #### C MP, TSH, T4 #### [facility] [address] [place], [place] [address] Dr. Antonio Macias XR CHEST 2 Von [...] BRENDAN WYATT Date: 2021-10-09 17:17 Normal [facility] Vital Signs Date Time Vital Sign Value Performing Clinician Ailyni duc 08-17-2023 07:54-0400 Body temperature 98.6 [degF] Gio PECK [facility] 08-17-2023 07:54-0400 Diastolic blood pressure 82 mm[Hg] Gio PECK [facility] 08-17-2023 07:54-0400 Heart rate 71 /min Gio PECK [facility] 08-17-2023 07:54-0400 Respiratory rate 16 /min Gio PECK [facility] 08-17-2023 07:54-0400 Systolic blood pressure 139 mm[Hg] Gio PECK [facility] 12-01-2022 10:30-0400 Diastolic blood pressure 95 mm[Hg] DO Jose Miguel House Work Phone: [facility] 12-01-2022 10:30-0400 Heart rate 54 /min DO Jose Miguel House Work Phone: [facility] 12-01-2022 10:30-0400 Respiratory rate 16 /min DO Jose Miguel House Work Phone: [facility] 12-01-2022 10:30-0400 SaO2% (BldA) [Mass fraction] 100 % DO Jose Miguel House Work Phone: [facility] 12-01-2022 10:30-0400 Systolic blood pressure 145 mm[Hg] DO Jose Miguel House Work Phone: [facility] 12-01-2022 09:34-0400 Body height 162.56 cm DO Jose Miguel House Work Phone: [facility] 12-01-2022 09:34-0400 Body temperature 97.6 [degF] DO Jose Miguel House Work Phone: [facility] 12-01-2022 09:34-0400 Body weight 74.84 kg DO Jose Miguel House Work Phone: [facility] 12-30-2021 12:21-0400 Blood Pressure Location FAITHSTEPHENIE ADAMS [facility] 12-30-2021 12:21-0400 Diastolic blood pressure 89 mm[Hg] FAITH RATLIFFRY [facility] 12-30-2021 12:21-0400 Heart rate 74 /min FAITH ADAMS [facility] 12-30-2021 12:21-0400 Respiratory rate 16 /min FAITH ADAMS [facility] 12-30-2021 12:21-0400 Systolic blood pressure 162 mm[Hg] FAITH ADAMS [facility] Encounters Encounter Date Encounter Type Care Provider Facility Start: 08-17-2023 End: 08-18-2023 ambulatory Gio PECK Facility:[facility] Start: 08-17-2023 End: 08-17-2023 Lab Drop off Gio PECK [facility] Start: 08-17-2023 End: 08-17-2023 Patient encounter procedure Gio PECK [facility] Start: 08-08-2023 End: 08-08-2023 ambulatory CYNTHIA JENNY Not Available Start: 02-23-2023 End: 02-23-2023 ambulatory CARLY T BLACKSTON Not Available Start: 02-21-2023 End: 02-21-2023 ambulatory CARLY T BLACKSTON Not Available Start: 02-16-2023 End: 02-16-2023 ambulatory CARLY T BLACKSTON Not Available Start: 02-14-2023 End: 02-14-2023 ambulatory CARLY T BLACKSTON Not Available Start: 01-14-2023 End: 01-14-2023 ambulatory PHYSICIAN NO FAMILY Facility:[facility] Start: 12-01-2022 End: 12-01-2022 ambulatory Jose Miguel House Facility:[facility] Start: 12-01-2022 End: 12-01-2022 Admission to same day surgery center DO Jose Miguel House Work Phone: [facility] Work Phone: Start: 12-01-2022 End: 12-01-2022 ambulatory DO Jose Miguel House Work Phone: [facility] Work Phone: Start: 08-25-2022 End: 08-26-2022 ambulatory Gio PECK Facility:[facility] Start: 08-25-2022 End: 08-26-2022 ambulatory Gio PECK Facility:[facility] Start: 08-04-2022 End: 08-05-[address] STEPHEN PRUITT . Facility:[facility] Start: 07-26-2022 End: 07-26-[address] STEPHEN PRUITT . Facility:[facility] Start: 12-30-2021 End: 12-30-2021 Patient encounter procedure FAITH ADAMS [facility] Start: 11-04-2021 End: 11-04-[address] [...] Date Care Activity Detail Author Start: 12-01-2022 [facility] Immunizations Immunization Date Immunization Notes Care Provider [facility] 01-17-2023 influenza virus vaccine, unspecified formulation Gio In[facility]ative [facility] 01-04-2022 influenza virus vaccine, unspecified formulation [facility] 03-16-2021 SARS-CoV-2 mRNA (tozinameran 5y-11y) vaccine FAITH ADAMS [facility] 12-19-2020 influenza virus vaccine, unspecified formulation [facility] 12-19-2020 zoster vaccine recombinant [facility] 08-19-2020 SARS-CoV-2 mRNA (tozinameran 5y-11y) vaccine FAITH ADAMS [facility] 07-22-2020 SARS-CoV-2 mRNA (tozinameran 5y-11y) vaccine FAITH ADAMS [facility] 12-14-2019 influenza virus vaccine, unspecified formulation [facility] 02-19-2019 bacillus calmette-cl vaccine FAITH ADAMS [facility] 02-12-2019 bacillus calmette-cl vaccine FAITH ADAMS [facility] 02-05-2019 bacillus calmette-cl vaccine FAITH ADAMS [facility] 12-27-2018 influenza virus vaccine, unspecified formulation Gio PECK [facility] 12-27-2017 influenza virus vaccine, unspecified formulation Gio PECK [facility] 01-03-2017 influenza virus vaccine, unspecified formulation Gio PECK [facility] 12-31-2015 influenza virus vaccine, unspecified formulation Gio PECK [facility] 12-25-2014 influenza virus vaccine, unspecified formulation Gio PECK [facility] 12-26-2013 influenza virus vaccine, unspecified formulation Gio PECK [facility] Payers Date Payer Category Payer Medicaid [id number] 2022 Self-pay [id number] 2022 Unknown [id number] 2022 Unknown [id number] 1958 Medicare [id number] 1958 Unknown [id number] 1955 Unknown [id number] 2.16.84 0.1.826554.3.579.2.593 1955 Unknown [id number] 2.16.84 0.1.628301.3.579.2.593 1956 Unknown [id number] 2.16.84 0.1.761987.3.579.2.593 1956 Unknown [id number] 2.16.84 0.1.041586.3.579.2.593 1956 Unknown [id number] 2.16.84 0.1.551732.3.579.2.1259 1956 Unknown [id number] 2.16.840 .1.985274.3.579.2.1259 1956 Unknown [id number] 2.16.840 .1.389596.3.579.2.1259 1956 Unknown [id number] 2.16.840. 1.430302.3.579.2.1259 1956 Unknown [id number] 2.16.840. 1.899641.3.579.2.1259 1956 Unknown [id number] 2.16.8 40.1.715660.3.579.2.727 1956 Unknown [id number] 2.16.8 40.1.966784.3.579.2.727 1956 Unknown [id number] 2.16.8 40.1.073337.3.579.2.727 1956 Unknown [id number] 2.16.8 40.1.350909.3.579.2.727 Unknown [id number] 2.16.8 40.1.914030.3.579.2.531 Unknown [id number] 2.16.8 40.1.696848.3.579.2.531 Social History Date Type Detail Facility Start: 12-30-2021 End: 08-17-2023 Tobacco smoking status Never smoked tobacco (finding) [facility] Sex Assigned At Female [facility] Start: 1955 Sex Assigned At Female F [facility] Tobacco smoking status Never [facility] Goals Date Patient Goal Desired Activity /State Functional Status Date Assessment Result Facility 08-17-2023 Functional Status N/A [facility] 12-30-2021 Functional Status N/A [facility] Clinical Notes 12-30-2021 to 08-17-2023 Note Date & Type Note Facility 08-17-2023 Evaluation + Plan note Diagnostic Tests PendingUroVysion Fish [facility] Urine Cyto ([facility]) 08/17/23 [facility] 08-17-2023 Hospital Discharge instructions Patient Education [...] if anything looks unusual. Women with a spdlda-amnm-vrwazs risk for skin cancer may want to see a wildfire prevention specialist (gas turbine powerplant mechanic helper) for an annual body check. What are the benefits of screening? Cancer screening is done to look for cancer in the very early stages, before it spreads and becomes harder to treat and before you would start to notice symptoms. Finding cancer early improves the chances of successful treatment. It may save your life. Where to find more information [place] [employer]: www.cancer.org Centers for Disease Control and Prevention: www.cdc.gov National Cancer [place]: www.cancer.gov U.S. Department of Health and Human [...] provider. Document Revised: 08/17/2021 Document Reviewed: 02/15/2020 [employer] Patient Education 2022 [employer] Follow Up Care 07/13/2023 10:02:01 With:MASSIMO MEDEROS, Gio Ryan, URL Address: [facility] [address] , [place] [address]- When: Unknown [facility] 12-01-2022 Procedure note [facility] 12-30-2021 Evaluation + Plan note Diagnostic Tests PendingUTI ([facility]) 12/30/21 [facility] 12-30-2021 Hospital Discharge instructions Follow Up Care 12/30/2021 09:49:55 With:FAITH ADAMS PA-C, URL Address: [address] [place] [phone] Business (1) When: only if needed [facility] Evaluation note No assessment inform ation available [facility] Work Phone: History and physical note Note Date/Time December 01, 2022 9:51am [facility] [address] [place] [address] Gastroenterology H&P Signed Patient: Stacia Park MR#: [id number] : 1955 Acct:[id number] Age/Sex: 67 / F Adm Date: 3 Loc: Room: Type: [facility] Attending Dr: Jose Gutierrez MD Copies to: MD Jose Miguel Sprague [place], DO~ Date of Service: 12/01/2022 HISTORY & [...] signed by Jose Gutierrez MD> 12/01/22 0951 [facility] Work Phone: Hospital course Narrative No data available for this section [facility] Hospital Discharge instructions Additional Instructions DISCHARGE [...] years. -Follow up with PCP. -Office number [phone].[facility] Work Phone: Hospital Discharge instructions No data available for this section [facility] No data available for this section [facility] Summary Purpose Family History No Family [...] content) DATE CREATED AUTHOR 08/12/2022 [facility] DATE CREATED AUTHOR AUTHOR'S ORGANIZ ATION 01/16/2023 [facility] DATE CREATED AUTHOR AUTHOR'S ORGANIZ ATION 08/09/2023 [facility] DATE CREATED AUTHOR AUTHOR'S ORGANIZ ATION 08/21/2023 [facility] DATE CREATED AUTHOR AUTHOR'S ORGANIZ ATION 08/25/2023 [facility] FOR RECORDS PERTAINING TO PATIENTS WHO ARE [...] BE BASED ON THE PRIMARY CLINICAL RECORDS. [facility] [employer] [facility]. provides no warranty or guarantee of the accuracy or completeness of information in this document.
[2023-09-27 09:45] LABS: Basophils Percent Auto 0.9 % (0.2-2.0); Eosinophils Absolute Auto 0.1 10^3/uL (0.0-0.7); Eosinophils Percent Auto 2.3 % (0.9-7.0); Hematocrit 36.9 % (36.0-48.0); Hemoglobin 11.9 g/dL (12.0-16.0); Immature Granulocytes Abs Auto 0.02 10^3/uL (0.00-0.03); Immature Granulocytes Pct Auto 0.5 % (0.0-0.5); Lymphocytes Absolute Auto 0.8 10^3/uL (1.2-3.8); Lymphocytes Percent Auto 17.8 % (20.5-60.0); Mean Corpuscular HGB Conc 32.2 g/dL (29.9-35.2); Mean Corpuscular Hemoglobin 29.9 pg (26.7-34.0); Mean Corpuscular Volume 92.7 fL (81.0-99.0); Mean Platelet Volume 10.8 fL (9.5-13.5); Monocytes Absolute Auto 0.3 10^3/uL (0.3-0.8); Monocytes Percent Auto 6.5 % (1.7-12.0); Neutrophils Absolute Auto 3.1 10^3/uL (1.4-6.5); Platelet Count 181 10^3/uL (150-450); Red Blood Count 3.98 10^6/uL (4.20-5.40); Red Cell Distribution Width 12.9 % (11.0-15.0); White Blood Count 4.3 10^3/uL (4.0-11.0)
[2023-09-27 10:20] LABS: Alanine Aminotransferase 41 U/L (14-59); Albumin Level 3.5 g/dL (3.4-5.0); Alkaline Phosphatase 69 U/L (46-116); Anion Gap 11.7; Aspartate Amino Transferase 18 U/L (15-37); BUN Creatinine Ratio 19.5; Bilirubin Total 0.7 mg/dL (0.2-1.0); Calcium 8.4 mg/dL (8.5-10.1); Carbon Dioxide 28.1 mmol/L (21.0-32.0); Chloride 106 mmol/L (98-107); Estimated GFR (African America >60 (>=60); Estimated GFR (Non-African Ame >60 (>=60); Glucose 110 mg/dL (74-106); Potassium 3.8 mmol/L (3.5-5.1); Sodium 142 mmol/L (136-145); Total Protein 6.7 g/dL (6.4-8.2)
[2023-09-27 10:21] LABS: Albumin Globulin Ratio 1.1; Globulin 3.2 g/dL
== END 2023-09-27 09:16 | disposition home or self-care (01) ==
LOC: LAB 09:16
PROVIDERS: PCP Nurse Practitioner Family; Visit Provider Nurse Practitioner Family
DX: E83.51 Hypocalcemia (principal); D72.818 Other decreased white blood cell count
CPT/HCPCS: 36415; 80053; 85025

== ENCOUNTER 2023-09-27 09:23 | Outpatient (OUT) | payer MEDICARE, OTHER, SELFPAY ==
--- OUTSIDE RECORDS SUMMARY | 2023-09-27 09:43 | XMS_ITS | CCD ---
Author Organization [facility] Care Team Providers Care Home Manager Name Role Phone Jose Miguel Phillips Primary Care Physician EDMOND ., DR MITCHELL Admitting Unavailabl e KARASIK ., DR MITCHELL Attending Unavailabl e KARASIK ., DR MITCHELL Consulting Unavailabl e JACQUELINE, DR GILLESPIE Primary Care Unavailable TIFTON, DR ANTONY Maldonado Consulting Unavailable HARDWICK, DR GILLESPIE Consulting Unavailable HARDWICK, DR GILLESPIE Primary Care Unavailable JACQUELINE, DR GILLESPIE Admitting Unavailable JACQUELINE, DR GILLESPIE Attending Unavailable BRENDAN WYATT Consulting Unavailable HARDWICK, DR GILLESPIE Attending Unavailable HARDWICK, DR GILLESPIE Consulting Unavailable HARDWICK, DR GILLESPIE Primary Care Unavailable JACQUELINE, DR [...] Medication Allergies] Propensity to adverse reactions (disorder) [facility] Repository Medications Current Medications Medication Drug [...] for 5 day(s), 10 tab(s), Refill(s) 0, [facility]/pharmacy #[id number], 162, cm, 12/30/21 12:22:00 EDT, [...] procedure, # 2 tab(s), Refills(s) 0, Pharmacy: [facility]/pharmacy #[id number], 162, cm, 08/17/23 7:56:00 EDT, Height/Length Dosing, 80, kg, 08/17/23 7:56:00 EDT, Weight Dosing Start Date: 08/17/23 Status: Ordered Start: 08-17-2021 take 1 tablet by kody th once daily Cipro 500 mg Tab 500 mg = 1 tab(s), Oral, Daily, Take 1 tablet the day before the procedure and 1 tablet after the procedure, # 2 tab(s), Refills(s) 0, Pharmacy: [facility]/pharmacy #[id number], 162, cm, 08/05/20 12:19:00 EDT, [...] & UC Diagnosis Info Invalid Interpretation Code [facility] Comment on above: Result Comment: A:Ur [...] on: 08/23/2023 12:26:36 Performed By: #### 1 [id number] #### [facility] [address] [place] [address] Consent for Procedure/Surger yon 08-19-2023 Consent for Procedure/Surgery [id number]. [id number] Normal [facility] Ambulatory Visit Summaryon 0 08-17-2023 Ambulatory [...] [facility] [address], [place] [address]- Medications What How Much When Instructions Unchanged [...] not begin (more content not included)... Normal [facility] Patient Educationon 08-17-19 Patient Education Oncology [...] tissue b (more content not included)... Normal [facility] UroVysion Fish and Urine Cyt o ([facility])on 08-17-2023 [facility] Method of Extraction Voided Normal [facility] Comment on above: Performed By: #### 1 [id number] #### [facility] [address] [place] [address] [facility] Number of Jars 1 Invalid Interpretation Code [facility] Comment on above: Performed By: #### 1 [id number] #### [facility] [address] [place] [place] [address] [facility] Specimen Urine Normal [facility] Comment on above: Performed By: #### 1 [id number] #### [facility] [address] [place] [address] [facility] Type of Service Technical Only Normal [facility] Comment on above: Performed By: #### 1 [id number] #### [facility] [address] [place] [address] Urology Office/Clinic Noteon 08-17-2023 Urology Office/Clinic Note [...] [facility] [address] , [place] [address]- Additional Instructions: 4 mos cysto Patient Education [...] of f (more content not included)... Normal [facility] Comment on above: Result Comment: Elec [...] year Cysto/FISH/cytol (bt ck) August 2024 Normal [facility] Reminders - From: Tiffanie Carroll To: [facility] - Recalls Peck; Cc: Tiffanie Carroll; Sent: 08/27/2022 08:36:40 EDT Show up: 07/04/2023 08:36:00 EDT Subject: Cysto/FISH/cytol Due Date/Time: 07/25/2023 08:36:00 EDT Reminder/Recall Patient is due in August 2023 for 1 year cysto/fish/cytol (bt ck) l/m on vm.LG l/m on vm.LG Pt called back. Sched [place] 08/17/23 [place]. LG Normal [facility] Complete Blood Count Auto Di ffon 01-14-2023 Basophils (Bld) [#/Vol] 0.0 10*3/uL Normal 0.0-0.2 [facility] Comment on above: Order Comment: Reaso n for Exam IBS (irritable bowel syndrome) Result Comment: PERF ORMED BY: [place] [address] PATHOLOGIST LIBRARIAN CARY GARCIA M.D. Performed By: #### C BC, CMP #### [facility] [address] [place] [address] [place] Basophils/100 WBC (Bld) 0.9 % Normal . [facility] Comment on above: Order Comment: Reaso n for Exam IBS (irritable bowel syndrome) Performed By: #### C BC, CMP #### [facility] [address] [place] [address] [place] Eosinophils (Bld) [#/Vol] 0.1 10*3/uL Normal 0.0-0.45 [facility] Comment on above: Order Comment: Reaso n for Exam IBS (irritable bowel syndrome) Performed By: #### C BC, CMP #### [facility] [address] Eosinophils/100 WBC (Bld) 2.2 % Normal . [facility] Comment on above: Order Comment: Reaso n for Exam IBS (irritable bowel syndrome) Performed By: #### C BC, CMP #### [address] Erythrocyte distribution width (RBC) [Ratio] 13.7 % Normal 11.9-15.3 [facility] Comment on above: Order Comment: Reaso n for Exam IBS (irritable bowel syndrome) Performed By: #### C BC, CMP #### [address] Hematocrit (Bld) [Volume fraction] 39.1 % Normal 34.0-46.4 [facility] Comment on above: Order Comment: Reaso n for Exam IBS (irritable bowel syndrome) Performed By: #### C BC, CMP #### [address] Hemoglobin (Bld) [Mass/Vol] 13.1 g/dL Normal 11.8-15.4 [facility] Comment on above: Order Comment: Reaso n for Exam IBS (irritable bowel syndrome) Performed By: #### C BC, CMP #### [place] [address] [place] Lymphocytes (Bld) [#/Vol] 0.9 10*3/uL Low 1.00-4.8 [facility] Comment on above: Order Comment: Reaso n for Exam IBS (irritable bowel syndrome) Performed By: #### C BC, CMP #### [place] [address] [place] Lymphocytes/100 WBC (Bld) 20.5 % Normal . [facility] Comment on above: Order Comment: Reaso n for Exam IBS (irritable bowel syndrome) Performed By: #### C BC, CMP #### [facility] [address] MCH (RBC) [Entitic mass] 30.5 pg Normal 24.7-34.3 [facility] Comment on above: Order Comment: Reaso n for Exam IBS (irritable bowel syndrome) Performed By: #### C BC, CMP #### [facility] [address] MCV (RBC) [Entitic vol] 90.6 fL Normal 80-100 [facility] Comment on above: Order Comment: Reaso n for Exam IBS (irritable bowel syndrome) Performed By: #### C BC, CMP #### [address] Mean Corpuscular HGB Conc 33.6 g/dL Normal 32.0-35.0 [facility] Comment on above: Order Comment: Reaso n for Exam IBS (irritable bowel syndrome) Performed By: #### C BC, CMP #### [place] [address] [place] Monocytes (Bld) [#/Vol] 0.4 10*3/uL Normal 0.0-0.8 [facility] Comment on above: Order Comment: Reaso n for Exam IBS (irritable bowel syndrome) Performed By: #### C BC, CMP #### [place] [address] [place] Monocytes/100 WBC (Bld) 8.7 % Normal . [facility] Comment on above: Order Comment: Reaso n for Exam IBS (irritable bowel syndrome) Performed By: #### C BC, CMP #### [place] [address] [place] Neutrophils (Bld) [#/Vol] 3.1 10*3/uL Normal 1.8-7.7 [facility] Comment on above: Order Comment: Reaso n for Exam IBS (irritable bowel syndrome) Performed By: #### C BC, CMP #### [place] [address] [place] Neutrophils/100 WBC (Bld) 67.7 % Normal . [facility] Comment on above: Order Comment: Reaso n for Exam IBS (irritable bowel syndrome) Performed By: #### C BC, CMP #### [facility] [address] NRBC% 0.2 /100{WBC} Normal 0-0.5 [facility] Comment on above: Order Comment: Reaso n for Exam IBS (irritable bowel syndrome) Performed By: #### C BC, CMP #### [facility] [address] Platelet mean volume (Bld) [Entitic vol] 9.5 fL Normal 6.3-10.7 [facility] Comment on above: Order Comment: Reaso n for Exam IBS (irritable bowel syndrome) Performed By: #### C BC, CMP #### [facility] [address] Platelets (Bld) [#/Vol] 230 10*3/uL Normal 150-450 [facility] Comment on above: Order Comment: Reaso n for Exam IBS (irritable bowel syndrome) Performed By: #### C BC, CMP #### [facility] [address] RBC (Bld) [#/Vol] 4.31 10*6/uL Normal 3.60-5.00 [facility] Comment on above: Order Comment: Reaso n for Exam IBS (irritable bowel syndrome) Performed By: #### C BC, CMP #### [facility] [address] WBC (Bld) [#/Vol] 4.5 10*3/uL Normal 3.8-11.6 [facility] Comment on above: Order Comment: Reaso n for Exam IBS (irritable bowel syndrome) Performed By: #### C BC, CMP #### [facility] [address] Comprehensive Metabolic Pane yuridia 01-14-2023 Albumin [Mass/Vol] 4.3 g/dL Normal 3.5-5.7 [facility] Comment on above: Order Comment: Reaso n for Exam IBS (irritable bowel syndrome) Performed By: #### C BC, CMP #### [facility] [address] [place] [address] Albumin/Globulin [Mass ratio] 2.0 {ratio} Normal [facility] Comment on above: Order Comment: Reaso n for Exam IBS (irritable bowel syndrome) Performed By: #### C BC, CMP #### [address] ALP [Catalytic activity/Vol] 51 U/L Normal 34-104 [facility] Comment on above: Order Comment: Reaso n for Exam IBS (irritable bowel syndrome) Result Comment: PERF ORMED BY: [place] [address] PATHOLOGIST LIBRARIAN CARY GARCIA M.D. Performed By: #### C BC, CMP #### [address] ALT [Catalytic activity/Vol] 21 U/L Normal 7-52 [facility] Comment on above: Order Comment: Reaso n for Exam IBS (irritable bowel syndrome) Performed By: #### C BC, CMP #### [address] Anion gap [Moles/Vol] 8.5 mmol/L Normal 6.0-15.0 [facility] Comment on above: Order Comment: Reaso n for Exam IBS (irritable bowel syndrome) Performed By: #### C BC, CMP #### [address] AST [Catalytic activity/Vol] 18 U/L Normal 13-39 [facility] Comment on above: Order Comment: Reaso n for Exam IBS (irritable bowel syndrome) Performed By: #### C BC, CMP #### [address] Bilirubin [Mass/Vol] 0.6 mg/dL Normal 0.3-1.0 [facility] Comment on above: Order Comment: Reaso n for Exam IBS (irritable bowel syndrome) Performed By: #### C BC, CMP #### [facility] [address] Calcium [Mass/Vol] 9.2 mg/dL Normal 8.6-10.3 [facility] Comment on above: Order Comment: Reaso n for Exam IBS (irritable bowel syndrome) Performed By: #### C BC, CMP #### [facility] [address] [place] [address] [place] Chloride [Moles/Vol] 107 mmol/L Normal 98-107 [facility] Comment on above: Order Comment: Reaso n for Exam IBS (irritable bowel syndrome) Performed By: #### C BC, CMP #### [facility] [address] CO2 [Moles/Vol] 30.2 mmol/L Normal 21.0-31.0 [facility] Comment on above: Order Comment: Reaso n for Exam IBS (irritable bowel syndrome) Performed By: #### C BC, CMP #### [facility] [address] Creatinine [Mass/Vol] 0.77 mg/dL Normal 0.60-1.20 [facility] Comment on above: Order Comment: Reaso n for Exam IBS (irritable bowel syndrome) Performed By: #### C BC, CMP #### [facility] [address] [place] [address] [place] GFR/1.73 sq M.predicted MDRD (S/P/Bld) [Vol rate/Area] mL/min/{1.73_m2} [facility] Comment on above: Order Comment: Reaso n for Exam IBS (irritable bowel syndrome) Performed By: #### C BC, CMP #### [facility] [address] [place] [address] [place] Globulin (S) [Mass/Vol] 2.2 g/dL [facility] Comment on above: Order Comment: Reaso n for Exam IBS (irritable bowel syndrome) Performed By: #### C BC, CMP #### [facility] [address] Glucose [Mass/Vol] 90 mg/dL Normal 70-100 [facility] Comment on above: Order Comment: Reaso n for Exam IBS (irritable bowel syndrome) Result Comment: [place] Glucose Reference Range is dependent on time and content of last meal. Glucose of more than 200 mg/dL in a nonstressed, ambulatory subject supports the diagnosis of Diabetes Mellitus. ADA recommended reference range Performed By: #### C BC, CMP #### [facility] [address] Potassium [Moles/Vol] 4.7 mmol/L Normal 3.5-5.1 [facility] Comment on above: Order Comment: Reaso n for Exam IBS (irritable bowel syndrome) Performed By: #### C BC, CMP #### [facility] [address] Protein [Mass/Vol] 6.5 g/dL Normal 6.4-8.9 [facility] Comment on above: Order Comment: Reaso n for Exam IBS (irritable bowel syndrome) Performed By: #### C BC, CMP #### [facility] [address] [place] [id number] [place] Sodium [Moles/Vol] 141 mmol/L Normal 136-145 [facility] Comment on above: Order Comment: Reaso n for Exam IBS (irritable bowel syndrome) Performed By: #### C BC, CMP #### [facility] [address] [place] [id number] [place] Urea nitrogen [Mass/Vol] 17 mg/dL Normal 7-25 [facility] Comment on above: Order Comment: Reaso n for Exam IBS (irritable bowel syndrome) Performed By: #### C BC, CMP #### [facility] [address] [place] [id number] [place] UroVysion Fish and Urine Cyt o ([facility])on 09-01-2022 [facility] & UC Diagnosis Info Invalid Interpretation Code [facility] Comment on above: Result Comment: A:Ur [...] correlated with cytology and cystoscopy results.* CPT 69875, 88763. Microscopic Notes - Microscopic Notes - Abnormal cells 9p21 deletions: Abnormal cells aneploid events: Total cells analyzed: Hematuria: Gross Description Site ID:A color Light Yellow fixative Alcohol Received 110 mls of clear light yellow fluid with the patient's name and, Urine on the vial. Electronically signed by : on: 09/01/2022 10:58:42 Performed By: #### 1 [id number] #### [facility] [address] [place] [address] Consent for Procedure/Surger yon 08-26-2022 Consent for Procedure/Surgery [id number] Normal [facility] Patient Educationon 08-26-19 23 Patient Education [...] tissue b (more content not included)... Normal [facility] UroVysion Fish and Urine Cyt o ( Labs)on 08-25-2022 [facility] Method of Extraction Voided Normal [facility] Comment on above: Performed By: #### 1 [id number] #### [facility] [address] [place] [address] [facility] Number of Jars 1 Invalid Interpretation Code [facility] Comment on above: Performed By: #### 1 [id number] #### [facility] [address] [place] [address] [facility] Specimen Urine Normal [facility] Comment on above: Performed By: #### 1 [id number] #### [facility] [address] [place] [address] [facility] Type of Service Technical Only Normal [facility] Comment on above: Performed By: #### 1 [id number] #### [facility] [address] [place] [address] Urology Office/Clinic Noteon 08-25-2022 Urology Office/Clinic Note [...] [facility] [address], [place] [address]- Additional Instructions: 1 yr cysto/FISH/cytol/bt ck Patient [...] SARS-CoV-2 mR (more content not included)... Normal [facility] Comment on above: Result Comment: Elec tronically Signed By: Gio PECK MD\.br\Date and Time Signed: 08/25/22 07:54 EDT\.br\Electronically Co-Signed By: Sheree Cox\.br\Date and Time Co-Signed: 08/25/22 07:53 EDT MG MAMM SCREEN 3D DELMA CADon 08-04-2022 MG MAMM SCREEN 3D DELMA CAD Patient: STACIA PARK Exam Date: 08/04/2022 : 1955 Gender:F Ordering : DR STEPHEN PRUITT . Admission #: [id number] Family : Order #: [id number] CLICK HERE TO VIEW EXAM RADIOLOGY REPORT [...] bladder/prostate cancer at age 77. LOCATION: [facility] BREAST COMPOSITION: Heterogeneously dense,which may obscure [...] Fraga MD on 08/04/2022 at 13:48 Normal [facility] XR DEXA BONE DENSITYon 08-04 XR [...] by: ANTONY FRAGA Date: 2022-08-04 17:13 Normal [facility] PAP ACOG PANEL 2: 30 to 65on 08-02-2022 . . Normal [facility] Comment on above: Performed By: #### 4 [id number] #### [facility] [address] [place] [address] [address] Antonio Macias Age Gdln ACOG Testing Comment Normal [facility] Comment on above: Result Comment: <21 or >65 or no age provided Performed By: #### 4 [id number] #### [facility] [address] [place] [address] [address] Antonio Macias DIAGNOSIS: Comment [facility] Comment on above: Result Comment: NEGA TIVE FOR INTRAEPITHELIAL LESION OR MALIGNANCY. CELLULAR CHANGES ASSOCIATED WITH ATROPHY ARE PRESENT. Performed By: #### 4 [id number] #### [facility] [address] [place] [address] [address] Antonio Macias Methodology: Comment Normal [facility] Comment on above: Result Comment: This liquid based ThinPrep(R) pap test was screened with the use of an image guided system. Performed By: #### 4 [id number] #### [facility] [address] [place] [address] Dr. Antonio Macias Note: Comment Normal [facility] Comment on above: Result Comment: The Pap smear is a screening test designed to aid in the detection of premalignant and malignant conditions of the uterine cervix. It is not a diagnostic procedure and should not be used as the sole means of detecting cervical cancer. Both false-positive and false-negative reports do occur. . Performed By: #### 4 [id number] #### [facility] [address] [place] [address] Dr. Antonio Macias Performed by: Comment Normal [facility] Comment on above: Result Comment: Khal[employer] ([employer]) Performed By: #### 4 [id number] #### [facility] [address] [place] [address] Dr. Antonio Macias Specimen adequacy: Comment Normal [facility] Comment on above: Result Comment: Sati sfactory for evaluation. Endocervical component may not be distinguished in cases of atrophy. Performed By: #### 4 [id number] #### [facility] [address] [place] [address] Dr. Antonio Macias CBC AUTO DIFFon 10-09-2021 BASO # 0.0 103/ul Normal 0.0-0.1 [facility] Comment on above: Performed By: #### C BC #### [facility] [address] [place] [address] Dr. Antonio Macias Basophils/100 WBC (Bld) 0.6 % Normal 0.2-2.0 [facility] Comment on above: Performed By: #### C BC #### [facility] [address] [place] [address] Dr. Antonio Macias EO # 0.1 103/ul Normal 0.0-0.7 [facility] Comment on above: Performed By: #### C BC #### [facility] [address] [place] [address] Dr. Antonio Macias Eosinophils/100 WBC (Bld) 2.3 % Normal 0.9-7.0 [facility] Comment on above: Performed By: #### C BC #### [facility] [address] [place] [address] Dr. Antonio Macias Erythrocyte distribution width (RBC) [Ratio] 12.9 % Normal 11.0-15.0 [facility] Comment on above: Performed By: #### C BC #### [facility] [address] [place] [address] Dr. Antonio Macias Hematocrit (Bld) [Volume fraction] 41.9 % Normal 36.0-48.0 [facility] Comment on above: Performed By: #### C BC #### [facility] [address] [place] [address] Dr. Antonio Macias Hemoglobin (Bld) [Mass/Vol] 13.8 g/dL Normal 12.0-16.0 [facility] Comment on above: Performed By: #### C BC #### [facility] [address] [place] [address] Dr. Antonio Macias IG # 0.01 10e3/ul Normal 0.00-0.03 [facility] Comment on above: Performed By: #### C BC #### [facility] [address] [place] [address] Dr. Antonio Macias IG % 0.2 % Normal 0.0-0.5 [facility] Comment on above: Performed By: #### C BC #### [facility] [address] [place] [address] Dr. Antonio Macias LYMPH # 1.1 103/ul Critically low 1.2-3.8 [facility] Comment on above: Performed By: #### C BC #### [facility] [address] [place] [address] Dr. Antonio Macias Lymphocytes/100 WBC (Bld) 22.0 % Normal 20.5-60.0 [facility] Comment on above: Performed By: #### C BC #### [facility] [address] [place] [address] Dr. Antonio Macias MANUAL DIFF REQ NO Normal [facility] Comment on above: Performed By: #### C BC #### [facility] [address] [place] [address] Dr. Antonio Macias MCH (RBC) [Entitic mass] 29.9 pg Normal 26.7-34.0 [facility] Comment on above: Performed By: #### C BC #### [facility] [address] [place] [address] Dr. Antonio Macias MCHC (RBC) [Mass/Vol] 32.9 g/dL Normal 29.9-35.2 [facility] Comment on above: Performed By: #### C BC #### [facility] [address] [place] [address] Dr. Antonio Macias MCV (RBC) [Entitic vol] 90.9 fL Normal 81.0-99.0 [facility] Comment on above: Performed By: #### C BC #### [facility] [address] [place] [address] Dr. Antonio Macais MONO # 0.4 103/ul Normal 0.3-0.8 [facility] Comment on above: Performed By: #### C BC #### [facility] [address] [place] [address] Dr. Antonio Macias Monocytes/100 WBC (Bld) 8.4 % Normal 1.7-12.0 [facility] Comment on above: Performed By: #### C BC #### [facility] [address] [place] [address] Dr. Antonio Macias NEUT # 3.2 103/ul Normal 1.4-6.5 [facility] Comment on above: Performed By: #### C BC #### [facility] [address] [place] [address] Dr. Antonio Macias Neutrophils/100 WBC (Bld) 66.5 % Normal 43.0-75.0 [facility] Comment on above: Performed By: #### C BC #### [facility] [address] [place] [address] Dr. Antonio Macias Platelet mean volume (Bld) [Entitic vol] 10.4 fL Normal 9.5-13.5 [facility] Comment on above: Performed By: #### C BC #### [facility] [address] [place] [address] Dr. Antonio Macias PLT 244 103/ul Normal 150-450 [facility] Comment on above: Performed By: #### C BC #### [facility] [address] [place] [address] Dr. Antonio Macias RBC 4.61 106/ul Normal 4.20-5.40 [facility] Comment on above: Performed By: #### C BC #### [facility] [address] [place] [address] Dr. Antonio Macias WBC 4.9 103/ul Normal 4.0-11.0 [facility] Comment on above: Performed By: #### C BC #### [facility] [address] [place] [address] Dr. Antonio Macias PROF 14(COMP METB)on 022 Albumin [Mass/Vol] 4.1 g/dL Normal 3.4-5.0 [facility] Comment on above: Performed By: #### C MP, TSH, T4 #### [facility] [address] [place] [address] Dr. Antonio Macias Albumin/Globulin [Mass ratio] 1.2 {ratio} Normal [facility] Comment on above: Performed By: #### C MP, TSH, T4 #### [facility] [facility] [address] [place] [address] Dr. Antonio Macias ALP [Catalytic activity/Vol] 120 U/L Critically high 46-116 [facility] Comment on above: Performed By: #### C MP, TSH, T4 #### [facility] [address] [place] [address] Dr. Antonio Macias ALT [Catalytic activity/Vol] 51 U/L Normal 14-59 [facility] Comment on above: Performed By: #### C MP, TSH, T4 #### [facility] [address] [place] [address] Dr. Antonio Macias Anion gap [Moles/Vol] 13.9 mmol/L Normal [facility] Comment on above: Performed By: #### C MP, TSH, T4 #### [facility] [address] [place] [address] Dr. Antonio Macias AST [Catalytic activity/Vol] 16 U/L Normal 15-37 [facility] Comment on above: Performed By: #### C MP, TSH, T4 #### [facility] [address] [place] [address] Dr. Antonio Macias Bilirubin [Mass/Vol] 0.7 mg/dL Normal 0.2-1.0 [facility] Comment on above: Performed By: #### C MP, TSH, T4 #### [facility] [address] [place] [address] Dr. Antonio Macias Calcium [Mass/Vol] 9.4 mg/dL Normal 8.5-10.1 [facility] Comment on above: Performed By: #### C MP, TSH, T4 #### [facility] [address] [place] [address] Dr. Antonio Macias Chloride [Moles/Vol] 106 mmol/L Normal 98-107 [facility] Comment on above: Performed By: #### C MP, TSH, T4 #### [facility] [address] [place] [address] Dr. Antonio Macias CO2 [Moles/Vol] 26.6 mmol/L Normal 21.0-32.0 [facility] Comment on above: Performed By: #### C MP, TSH, T4 #### [facility] [address] [place] [address] Dr. Antonio Macias Creatinine [Mass/Vol] 0.81 mg/dL Normal 0.55-1.02 [facility] Comment on above: Performed By: #### C MP, TSH, T4 #### [facility] [address] [place] [address] Dr. Antonio Macias EGFR-AF IVORIAN >60 Normal >=60 [facility] Comment on above: Performed By: #### C MP, TSH, T4 #### [facility] [address] [place] [address] Dr. Antonio Macias EGFR-NON AF IVORIAN >60 Normal >=60 [facility] Comment on above: Performed By: #### C MP, TSH, T4 #### [facility] [address] [place] [address] Dr. Antonio Macias Globulin (S) [Mass/Vol] 3.4 g/dL Normal [facility] Comment on above: Performed By: #### C MP, TSH, T4 #### [facility] [address] [place] [address] Dr. Antonio Macias Glucose [Mass/Vol] 100 mg/dL Normal 74-106 [facility] Comment on above: Performed By: #### C MP, TSH, T4 #### [facility] [address] [place] [address] Dr. Antonio Macias Potassium [Moles/Vol] 4.5 mmol/L Normal 3.5-5.1 [facility] Comment on above: Performed By: #### C MP, TSH, T4 #### [facility] [address] [place] [address] Dr. Antonio Macias Protein [Mass/Vol] 7.5 g/dL Normal 6.4-8.2 [facility] Comment on above: Performed By: #### C MP, TSH, T4 #### [facility] [address] [place] [address] Dr. Antonio Macias Sodium [Moles/Vol] 142 mmol/L Normal 136-145 [facility] Comment on above: Performed By: #### C MP, TSH, T4 #### [facility] [address] [place] [address] Dr. Antonio Macias Urea nitrogen [Mass/Vol] 18.0 mg/dL Normal 7.0-18.0 [facility] Comment on above: Performed By: #### C MP, TSH, T4 #### [facility] [address] [place] [address] Dr. Antonio Macias Urea nitrogen/Creatinin e [Mass ratio] 22.2 mg/mg Normal [facility] Comment on above: Performed By: #### C MP, TSH, T4 #### [facility] [address], [place] [address] Dr. Antonio Macias T4on 10-09-2021 T4 [Mass/Vol] 8.10 ug/dL Normal 4.80-13.90 [facility] Comment on above: Performed By: #### C MP, TSH, T4 #### [facility] [address] [place], [place] [address] Dr. Antonio Macias TSHon 10-09-2021 TSH 1.633 uIU/mL Normal 0.358-3.740 [facility] Comment on above: Performed By: #### C MP, TSH, T4 #### [facility] [address] [place], [place] [address] Dr. Antonio Macias XR CHEST 2 Von [...] BRENDAN WYATT Date: 2021-10-09 17:17 Normal [facility] Vital Signs Date Time Vital Sign Value Performing Clinician Ailyni duc 08-17-2023 07:54-0400 Body temperature 98.6 [degF] Gio PECK [facility] 08-17-2023 07:54-0400 Diastolic blood pressure 82 mm[Hg] Gio PECK [facility] 08-17-2023 07:54-0400 Heart rate 71 /min Gio EPCK [facility] 08-17-2023 07:54-0400 Respiratory rate 16 /min Gio PECK [facility] 08-17-2023 07:54-0400 Systolic blood pressure 139 mm[Hg] Gio PECK [facility] 12-01-2022 10:30-0400 Diastolic blood pressure 95 mm[Hg] DO Jose Miguel House Work Phone: [facility] 12-01-2022 10:30-0400 Heart rate 54 /min DO Jose Miguel House Work Phone: [facility] 12-01-2022 10:30-0400 Respiratory rate 16 /min DO Jose Miguel House Work Phone: [facility] 12-01-2022 10:30-0400 SaO2% (BldA) [Mass fraction] 100 % DO Jose Miguel House Work Phone: [facility] 12-01-2022 10:30-0400 Systolic blood pressure 145 mm[Hg] DO Jose Miguel House Work Phone: [facility] 12-01-2022 09:34-0400 Body height 162.56 cm DO Jose Miguel House Work Phone: [facility] 12-01-2022 09:34-0400 Body temperature 97.6 [degF] DO Jose Miguel House Work Phone: [facility] 12-01-2022 09:34-0400 Body weight 74.84 kg DO Jose Miguel House Work Phone: [facility] 12-30-2021 12:21-0400 Blood Pressure Location FAITHSTEPHENIE ADAMS [facility] 12-30-2021 12:21-0400 Diastolic blood pressure 89 mm[Hg] FAITH RATLIFFRY [facility] 12-30-2021 12:21-0400 Heart rate 74 /min FAITH ADAMS [facility] 12-30-2021 12:21-0400 Respiratory rate 16 /min FAITH ADAMS [facility] 12-30-2021 12:21-0400 Systolic blood pressure 162 mm[Hg] FAITH ADAMS [facility] Encounters Encounter Date Encounter Type Care Provider Facility Start: 08-17-2023 End: 08-18-2023 ambulatory Gio PECK Facility:[facility] Start: 08-17-2023 End: 08-17-2023 Lab Drop off Gio PECK [facility] Start: 08-17-2023 End: 08-17-2023 Patient encounter procedure Gio PECK [facility] Start: 08-08-2023 End: 08-08-2023 ambulatory CYNTHIA JENNY Not Available Start: 02-23-2023 End: 02-23-2023 ambulatory CARLY T BLACKSTON Not Available Start: 02-21-2023 End: 02-21-2023 ambulatory CARLY T BLACKSTON Not Available Start: 02-16-2023 End: 02-16-2023 ambulatory CARLY T BLACKSTON Not Available Start: 02-14-2023 End: 02-14-2023 ambulatory CARLY T BLACKSTON Not Available Start: 01-14-2023 End: 01-14-2023 ambulatory PHYSICIAN NO FAMILY Facility:[facility] Start: 12-01-2022 End: 12-01-2022 ambulatory Jose Miguel House Facility:[facility] Start: 12-01-2022 End: 12-01-2022 Admission to same day surgery center DO Jose Miguel House Work Phone: [facility] Work Phone: Start: 12-01-2022 End: 12-01-2022 ambulatory DO Jose Miguel House Work Phone: [facility] Work Phone: Start: 08-25-2022 End: 08-26-2022 ambulatory Gio PECK Facility:[facility] Start: 08-25-2022 End: 08-26-2022 ambulatory Gio PECK Facility:[facility] Start: 08-04-2022 End: 08-05-[address] STEPHEN PRUITT . Facility:[facility] Start: 07-26-2022 End: 07-26-[address] STEPHEN PRUITT . Facility:[facility] Start: 12-30-2021 End: 12-30-2021 Patient encounter procedure FAITH ADAMS [facility] Start: 11-04-2021 End: 11-04-[address] [...] Date Care Activity Detail Author Start: 12-01-2022 [facility] Immunizations Immunization Date Immunization Notes Care Provider [facility] 01-17-2023 influenza virus vaccine, unspecified formulation Gio MedTel24 [facility] 01-04-2022 influenza virus vaccine, unspecified formulation [employer] [employer] [facility] 03-16-2021 SARS-CoV-2 mRNA (tozinameran 5y-11y) vaccine FAITH ADAMS [facility] 12-19-2020 influenza virus vaccine, unspecified formulation [employer] [facility] 12-19-2020 zoster vaccine recombinant [employer] [facility] 08-19-2020 SARS-CoV-2 mRNA (tozinameran 5y-11y) vaccine FAITH ADAMS [facility] 07-22-2020 SARS-CoV-2 mRNA (tozinameran 5y-11y) vaccine FAITH ADAMS [facility] 12-14-2019 influenza virus vaccine, unspecified formulation [employer] [facility] 02-19-2019 bacillus calmette-cl vaccine FAITH ADAMS [facility] 02-12-2019 bacillus calmette-cl vaccine FAITH ADAMS [facility] 02-05-2019 bacillus calmette-cl vaccine FAITH ADAMS [facility] 12-27-2018 influenza virus vaccine, unspecified formulation Gio PECK [facility] 12-27-2017 influenza virus vaccine, unspecified formulation Gio PECK [facility] 01-03-2017 influenza virus vaccine, unspecified formulation Gio PECK [facility] 12-31-2015 influenza virus vaccine, unspecified formulation Gio PECK [facility] 12-25-2014 influenza virus vaccine, unspecified formulation Gio PECK [facility] 12-26-2013 influenza virus vaccine, unspecified formulation Gio PECK [facility] Payers Date Payer Category Payer Medicaid [id number] 2022 Self-pay [id number] 2022 Unknown [id number] 2022 Unknown [id number] 1958 Medicare [id number] 1959 Unknown [id number] 1955 Unknown [id number] 2.16.84 0.1.399814.3.579.2.593 1955 Unknown [id number] 2.16.84 0.1.648292.3.579.2.593 1955 Unknown [id number] 2.16.84 0.1.656943.3.579.2.593 1955 Unknown [id number] 2.16.84 0.1.543150.3.579.2.593 1956 Unknown [id number] 2.16.84 0.1.758655.3.579.2.1259 1956 Unknown [id number] 2.16.840 .1.846193.3.579.2.1259 1956 Unknown [id number] 2.16.840 .1.701123.3.579.2.1259 1956 Unknown [id number] 2.16.840. 1.921535.3.579.2.1259 1956 Unknown [id number] 2.16.840. 1.035687.3.579.2.1259 1956 Unknown [id number] 2.16.8 40.1.645168.3.579.2.727 1956 Unknown [id number] 2.16.8 40.1.877482.3.579.2.727 1956 Unknown [id number] 2.16.8 40.1.284707.3.579.2.727 1956 Unknown [id number] 2.16.8 40.1.946947.3.579.2.727 Unknown [id number] 2.16.8 40.1.232687.3.579.2.531 Unknown [id number] 2.16.8 40.1.254082.3.579.2.531 Social History Date Type Detail Facility Start: 12-30-2021 End: 08-17-2023 Tobacco smoking status Never smoked tobacco (finding) [facility] Sex Assigned At Female [facility] Start: 1955 Sex Assigned At Female [facility] Tobacco smoking status Never [facility] [place] Goals Date Patient Goal Desired Activity /State Functional Status Date Assessment Result Facility 08-17-2023 Functional Status N/A [facility] 12-30-2021 Functional Status N/A [facility] Clinical Notes 12-30-2021 to 08-17-2023 Note Date & Type Note Facility 08-17-2023 Evaluation + Plan note Diagnostic Tests PendingUroVysion Fish and Urine Cyto ([facility]) 08/17/23 [facility] 08-17-2023 Hospital Discharge instructions Patient Education [...] if anything looks unusual. Women with a dxpsrv-kotr-fqdrri risk for skin cancer may want to see a sheepskin pickler (assisted living director) for an annual body check. What are the benefits of screening? Cancer screening is done to look for cancer in the very early stages, before it spreads and becomes harder to treat and before you would start to notice symptoms. Finding cancer early improves the chances of successful treatment. It may save your life. Where to find more information [place] [employer]: www.cancer.org Centers for Disease Control and Prevention: www.cdc.gov National Cancer Sikes: www.cancer.gov U.S. Department of Health and Human [...] provider. Document Revised: 08/17/2021 Document Reviewed: 02/15/2020 [employer] Patient Education 2022 [employer] Follow Up Care 07/13/2023 10:02:01 With:MASSIMO MEDEROS, Gio Ryan, URL Address: [facility] [address] , [place] [address]- When: Unknown [facility] [place] 12-01-2022 Procedure note [facility] 12-30-2021 Evaluation + Plan note Diagnostic Tests PendingUTI ([facility]) 12/30/21 [facility] 12-30-2021 Hospital Discharge instructions Follow Up Care 12/30/2021 09:49:55 With:FAITH ADAMS PA-C, URL Address: [address] [place] [phone] Business (1) When: only if needed [facility] Evaluation note No assessment inform ation available [facility] Work Phone: History and physical note Note Date/Time December 01, 2022 9:51am [facility] [address] [place] [address] Gastroenterology H&P Signed Patient: Stacia Park MR#: [id number] : 1955 Acct:[id number] Age/Sex: 67 / F Adm Date: 3 Loc: Room: Type: [facility] Attending Dr: Jose Gutierrez MD Copies to: MD Jose Miguel Sprague [place], DO~ Date of Service: 12/01/2022 HISTORY & [...] signed by Jose Gutierrez MD> 12/01/22 0951 [facility] Work Phone: Hospital course Narrative No data available for this section [facility] Hospital Discharge instructions Additional Instructions DISCHARGE [...] years. -Follow up with PCP. -Office number [phone].[facility] Work Phone: Hospital Discharge instructions No data available for this section [facility] No data available for this section [facility] Summary Purpose Family History No Family [...] and content) DATE CREATED AUTHOR 08/12/2022 [facility] DATE CREATED AUTHOR AUTHOR'S ORGANIZ ATION 01/16/2023 [facility] DATE CREATED AUTHOR AUTHOR'S ORGANIZ ATION 08/09/2023 [facility] DATE CREATED AUTHOR AUTHOR'S ORGANIZ ATION 08/21/2023 [facility] DATE CREATED AUTHOR AUTHOR'S ORGANIZ ATION 08/25/2023 [facility] FOR RECORDS PERTAINING TO PATIENTS WHO [...] BE BASED ON THE PRIMARY CLINICAL RECORDS. [facility] [employer]. provides no warranty or guarantee of the accuracy or completeness of information in this document.
[2023-09-27 10:19] LABS: Amylase 41 U/L (25-115)
== END 2023-09-27 09:24 | disposition home or self-care (01) ==
LOC: LAB 09:24
PROVIDERS: PCP Nurse Practitioner Family; Visit Provider Family Medicine
DX: E83.51 Hypocalcemia (principal); D72.818 Other decreased white blood cell count; F10.10 Alcohol abuse, uncomplicated
CPT/HCPCS: 36415; 80053; 82150; 83690; 85025

== ENCOUNTER 2025-01-30 09:09 | Outpatient (OUT) | payer MEDICARE, OTHER, SELFPAY ==
--- OUTSIDE RECORDS SUMMARY | 2025-01-30 09:13 | XMS_ITS | Clinical Summary ---
Author Organization [facility] Address [address] [place] [address] Care Team Providers Care Building Mechanic Name Role Phone Josephine Garland MD Unavailable [phone] Jose Miguel Vaca MD Primary Care Provider [phone] Allergies No known active allergies Medications MedicationSigDispense QuantityRefillsLast FilledStart DateEnd DateStatus Turmeric 400 MG capsule TurmericActive meloxicam (Mobic) 15 MG tablet 1 (one) time each day at the same time.Active alpha tocopherol (Vitamin E) 100 units capsule Vitamin EActive citalopram (CeleXA) 20 MG tablet 1 (one) time each day at the same time.Active alendronate (Fosamax) 70 MG tablet Indications:Postmenopausal stateTAKE 1 TAB BY MOUTH WEEKLY 30 MINS BEFORE FIRST FOOD, BEVERAGE OR MEDICINE OF THE DAY W/ PLAIN WATER 4 tablet 1104Active estradiol (Estrace) 1 MG tablet Indications:Vaginal dryness, menopausalTAKE 1 TABLET BY MOUTH EVERY DAY 90 tablet 5Active Active Problems ProblemNoted DateDiagnosed DatePostmenopausal state08/08/2023reast cancer screening by /06/2024Arthritis of right hip3DDD (degenerative disc disease), gxvlzf4301/13/2023Lumbago with sciatica, right side 01/13/2023Menopausal burkprn2101/13/2023Other chronic pain01/13/2023Vaginal zmhocaw5401/13/2023 Family History Medical HistoryRelationNameCommentsBreast cancerFatherCancerFatherbladderLung cancerMotherRelationNameStatusCommentsFatherDeceasedMotherDeceased Social History Tobacco UseTypesPacks/DayYears UsedDateSmoking Tobacco: NeverSmokeless Tobacco: Never Tobacco Cessation:Counseling Given: Not Answered Alcohol UseStandard Drinks/WeekCommentsYes5 (1 standard drink = 0.6 oz pure alcohol)CommentsUnknownSex and Gender InformationValueDate RecordedSex Assigned at BirthNot on fileLegal JlwJjqzgw25/15/2023 7:20 PM EDTGender Identity Not on fileSexual OrientationNot on file Last Filed Vital Signs Vital SignReadingTime TakenCommentsBlood Hgqktgja063/9205 1:13 PM EDT Pulse--Temperature--Respiratory Rate--Oxygen Saturation--Inhaled Oxygen Concentration--Jsktgn58.1 kg (170 lb)08/08/2023 1:13 PM RBKYmdmkh220.6 cm (5' 4 )07/26/2022 12:00 PM EDTBody Mass Index29.18007/26/2022 12:00 PM EDT Plan of Treatment Not on file Insurance Care Teams Team MemberRelationshipSpecialtyStart DateEnd Jose Miguel Andrade MD [address] [place], [place] [address] [address] PCP - GeneralFamily Njojmnxa12/31/23 Josephine Garland MD [address] [place] [id number] Referring PhysicianFamily Jwwnkjow76/30/23
--- OUTSIDE RECORDS SUMMARY | 2025-01-30 09:19 | XMS_ITS | CCD ---
Author Organization [facility] CliniSynh Care Team Providers Care Installation Specialist Name Role Phone Jose Miguel Vaca Primary Care Physician EDMOND ., DR MITCHELL Admitting Unavailabl e KARASIK ., DR MITCHELL Attending Unavailabl e KARASIK ., DR MITCHELL Consulting Unavailabl e JACQUELINE, DR GILLESPIE Primary Care Unavailable ISLETON, DR ANTONY Maldonado Consulting Unavailable GRANTS, DR GILLESPIE Consulting Unavailable GRANTS, DR GILLESPIE Primary Care Unavailable JACQUELINE, DR GILLESPIE Admitting Unavailable JACQUELINE, DR GILLESPIE Attending Unavailable BRENDAN WYATT Consulting Unavailable GRANTS, DR GILLESPIE Attending Unavailable GRANTS, DR GILLESPIE Consulting Unavailable GRANTS, DR GILLESPIE Primary Care Unavailable JACQUELINE, DR GILLESPIE Admitting Unavailable KARASIK ., DR MITCHELL Attending Unavailabl e KARASIK ., DR MITCHELL Consulting Unavailabl e EDMOND ., DR MITCHELL Admitting Unavailabl e JACQUELINE, DR GILLESPIE Primary Care Unavailable Jacqueline, DO Gillespie Primary Care Provider MD Jose Gutierrez Attending Provider [phone] Jose Miguel Vaca Primary Care Unavailable Jose Gutierrez Admitting Unavailable Jose Gutierrez Attending Unavailable NO FAMILY, PHYSICIAN Primary Care Unavailable Mario Chavez Admitting Unavailable Mario Chavez Attending Unavailable CARLY MONZON Attending Unavailable APLING, RIVAS B Referring Unavailable CARLY MONZON T Attending Unavailable APLING, RIVAS B Referring Unavailable CARLY MONZON T Attending Unavailable APLING, RIVAS B Referring Unavailable BLACKSRADHA, CARLY T Attending Unavailable APLING, RIVAS B Referring Unavailable CYNTHIA ALVARADO Attending Unavailable DANIELLE SANTORO Primary Care Physician DANIELLE SANTORO Primary Care Unavailable Gio PECK Attending Unavailable DANIELLE SANTORO Primary Care Unavailable Gio PECK Attending Unavailable Gio PECK Admitting Unavailable DANIELLE SANTORO Primary Care Unavailable Gio PECK Attending Unavailable DANIELLE SANTORO Primary Care Unavailable Gio PCEK Attending Unavailable Gio PECK Admitting Unavailable Gio PECK Attending Unavailable DANIELLE SANTORO Primary Care Unavailable DANIELLE SANTORO Primary Care Unavailable Gio PECK Admitting Unavailable Gio PECK Attending Unavailable Allergies Allergy ClassificationReported Allergen(s)Allergy TypeDate of OnsetReaction(s) Facility (3 sources)No Known Medication Allergies; Translations: [No Known Medication Allergies]Propensity to adverse reactions (disorder)[facility] Repository Medications Current Medications MedicationDrug Class(es)DatesSig (Normalized)Sig (Original)alendronic acid 70 mg oral tablet (8 sources)BisphosphonateStart: 90-51-0586htarigrtsgx 70 mg Tab Refills(s) 0 Start Date: 08/25/22 Status: Ordered Repeat number: 1citalopram 20 mg oral tablet (9 sources)Serotonin Reuptake InhibitorStart: 79-44-4717vrlu 20 mg by mouth once dailyCitalopram Active 20 MG PO Daily December 01, 2022 12:00amStart: 12-08-2018 take 1 tablet by mouth once dailycitalopram 10 mg Tab 10 mg = 1 tab(s), Oral, Daily Start Date: 12/08/18 Status: Ordered Repeat number: 1diclofenac sodium 50 mg delayed release oral tablet (1 source)Nonsteroidal Anti-inflammatory DrugStart: 35-93-2178nmtu 1 tablet by mouth twice dailyDiclofenac 50mg Tab-DR 50 mg, Oral, BID Start Date: 12/08/18 Status: Orderedestradiol 0.1 mg/ml vaginal cream (15 sources)EstrogenStart: 78-32-9694aalfrjtkg 1 mg Tab Refills(s) 0 Start Date: 08/25/22 Status: Ordered Repeat number: 1Start: 80-75-9251qjrvuhemu 0.1 mg/g Vag Crm Refill(s) 0 Start Date: 08/25/22 Status: Ordered Repeat number: 1meloxicam 15 mg oral tablet (8 sources)Nonsteroidal Anti-inflammatory DrugStart: 25-74-9379onsrkvtek 15 mg Tab Refills(s) 0 Start Date: 08/25/22 Status: Ordered Repeat number: 1 sulfamethoxazole 800 mg / trimethoprim 160 mg oral tablet (1 source)Dihydrofolate Reductase Inhibitor Antibacterial, Sulfonamide AntimicrobialStart: 12-30-2021 End: 86-98-5384Minuvrt DS 800 mg-160 mg Tab 1 tab(s), Oral, BID for 5 day(s), 10 tab(s), Refill(s) 0, [facility]/pharmacy#[id number], 162, cm, 12/30/21 12:22:00 EDT, Height/Length Dosing, 73.5, kg, 02/05/20 7:42:00 EST, WeightDosing Start Date: 12/30/21 Stop Date: 01/04/22 Status: Ordered Completed/Discontinued Medications MedicationDrug Class(es)DatesSig (Normalized)Sig (Original)ciprofloxacin 500 mg oral tablet (6 sources)Quinolone AntimicrobialStart: 02-62-6858aajf 1 tablet by mouth once dailyCipro 500 mg Tab 500 mg = 1 tab(s), Oral, Daily, Take 1 tablet the day before the procedure and 1 tablet after the procedure, # 2 tab(s), Refills(s) 0, Pharmacy: [facility]/pharmacy #[id number], 162, cm, :54:00 EDT, Height/Length Dosing, 80, kg, 12/21/23 7:54:00 EDT, Weight Dosing Start Date: 11/01/24 Status: Ordered Quantity: 2.0 Unit: tab(s) Repeat number: 1Start: 99-11-8684fzfz 1 tablet by mouth once dailyCipro 500 mg Tab 500 mg = 1 tab(s), Oral, Daily, Take 1 tablet the day before the procedure and 1 tablet after the procedure, # 2 tab(s), Refills(s) 0, Pharmacy: [facility]/pharmacy #[id number], 162, cm, :56:00 EDT, Height/Length Dosing, 80, kg, 08/17/23 7:56:00 EDT, Weight Dosing Start Date: 08/17/23 Status: OrderedStart: 27-89-6063tvjk 1 tablet by mouth once daily Cipro 500 mg Tab 500 mg = 1 tab(s), Oral, Daily, Take 1 tablet the day before the procedure and 1 tablet after the procedure, # 2 tab(s), Refills(s) 0, Pharmacy: [facility]/pharmacy #[id number], 162, cm, 08/06/2111:19:00 EDT, Height/Length Dosing, 73.5, kg, 02/05/20 7:42:00 EST,... Start Date: 08/17/21 Status: Ordered Problems Active Problems Problem ClassificationProblemDateDocumented DateEpisodic/ChronicCancer of bladder (8 sources)Malignant neoplasm, overlapping lesion of cuqsixf45-73-6849Omdbzar Cancer of bladder (3 sources)History of malignant neoplasm of bladder; Translations: [Personal history of malignant neoplasm of bladder]Onset: 83-24-9443UibkomsoXkxari; other and unspecified primary (8 sources)History of bladder ajxjbcrq05-79-6855LvpwqfyzStpnyspqu hypertension (5 sources)Hypertensive gxgrcyoh61-84-4973BoafqbcJcepzhyhjvgwj symptoms and ill- defined conditions (17 sources)Genitourinary symptoms; Translations: [Unspecified symptoms and signs involving the genitourinary system]Onset: 35-48-4850OfduubpwNabicjrornjkx and screening for infectious disease (1 source)Encounter for screening for human papillomavirus (HPV); Translations: [ENC SCREENING HUMAN PAPILLOMAVIRUS]Onset: 04-54-0936WrvgvutfDgbk disorders (8 sources)Depressive safhcmvd94-46-5675FeeydkoFkkaoynoohbm (1 source)Age-related osteoporosis without current pathological fracture; Translations: [AGE-REL OSTEOPOR W/OCURR PATH FX]Onset: 85-98-3206WuoryviBgiwb bone disease and musculoskeletal deformities (1 source)Other specified disorders of bone density and structure, unspecified site; Translations: [OTH D/O BONE DEN STRUCT UNS SITE]Onset: 41-30-2417Eswbvgot Other diseases of bladder and urethra (7 sources)Lesion of hvojpgm84-95-8735DoclnwxMzads diseases of bladder and urethra (2 sources)Disorder of bladder; Translations: [Bladder disorder, unspecified] Onset: 67-63-9351CkanweePmigh diseases of bladder and urethra (1 source)Detrusor overactivity; Translations: [Overactive bladder]Onset: 63-70-8446IsyfqwnXuytl diseases of bladder and urethra (1 source)Overactive ipwlyqa54-18-6667FevqpvwUlyql diseases of bladder and urethra (2 sources)Urethral stricture; Translations: [Other urethral stricture, female] Onset: 10-71-5289CkfpomoqHxngz gastrointestinal disorders (1 source)Change in bowel habit; Translations: [Change in bowel habit]Onset: 41-31-5797DcvbciskWdcgx nutritional; endocrine; and metabolic disorders (5 sources)Xxcuwcvxqdgr76-37-0245PuhbkzuOzmuz screening for suspected conditions (not mental disorders or infectious disease) (8 sources)Encounter for screening mammogram for malignant neoplasm of breast; Translations: [Encounter for screening for malignant neoplasm of cervix]Onset: 33-78-7178FoepzinpXwkpkbpr codes; unclassified (1 source)Asymptomatic menopausal state; Translations: [ASYMPTOMATIC MENOPAUSAL STATE]Onset: 52-95-6847RhzmzmtxDieoylhc codes; unclassified (1 source)Family history of malignant neoplasm of trachea, bronchus and lung; Translations: [FAM HX MALIG NEOPLSM TRACH BRON LNG]Onset: 74-58-1782Gydvzbci Residual codes; unclassified (1 source)Family history of malignant neoplasm of prostate; Translations: [FAMILY HX MALIG NEOPLASM PROSTATE]Onset: 12-13-0529IsxyocgzXqiyryse codes; unclassified (1 source)Family history of malignant neoplasm of bladder; Translations: [FAM HX MALIGNANT NEOPLASM BLADDER]Onset: 89-13-6642CtuzahbwDmeygzfbynuz (4 sources)COUGH, UNSPECIFIED; Translations: [COUGH, UNSPECIFIED]Onset: 54-96-3025Fcmiugutdmjs (1 source)Irritable bowel syndrome without diarrhea; Translations: [Irritable bowel syndrome without diarrhea]Onset: 01-14-2023 Past or Other Problems Problem ClassificationProblemDateDocumented DateEpisodic/ChronicMalaise and fatigue (1 source)Other fatigue; Translations: [OTHER FATIGUE]Onset: 39-20-0754Rbquzghv Other connective tissue disease (1 source)Myalgia, unspecified site; Translations: [MYALGIA UNSPECIFIED SITE] Onset: 06-87-7697HtequqncOjrud lower respiratory disease (5 sources)Shortness of breath; Translations: [SHORTNESS OF BREATH]Onset: 77-78-9632WnirheknVkxgx lower respiratory disease (1 source)Other forms of dyspnea; Translations: [OTHER FORMS OF DYSPNEA]Onset: 34-85-4247TcaqmimtJwfecrxbzxnb (1 source)COUGH, UNSPECIFIED; Translations: [COUGH, UNSPECIFIED]Onset: 11-04-2021 Results Test NameValueInterpretationReference RangeFacilityUroVysion Fish and Urine Cyto ([facility])on 91-25-0045PHTEDK & UCDiagnosis InfoInvalid Interpretation CodeFisher [facility] Medical CenterComment on above:Result Comment: A:Urine,Urine:Voided Diagnosis Summary - Adequate cellularity for evaluation. Diagnosis Summary - The UroVysion FISH study detected normal copy numbers for chromosomes 3, 7, 17,and 9p21. 200 cells were analyzed in this evaluation. No evidence of aneuploidy for chromosomes 3, 7, or 17 or deletion of the 9p21 locus was found in cells present in this specimen. This test does not rule out the possibility of a low grade non-invasive papillary urothelial carcinoma. These findings should be correlated with cytology and cystoscopy results. * CPT: 24100, 26457. Microscopic Notes - Microscopic Notes - Abnormal cells 9p21 deletions: Abnormal cells aneploid events: Total cells analyzed: 200 Hematuria: Gross Description Site ID:A color light Yellow fixative Alcohol Received 110 mls of clear light yellow fluid with thepatient's name and, Urine on the vial. Electronically signed by : on: 12/25/2024 14:01:53Performed By: #### [id number] #### [facility] [address] [place] [address]Wscymgylom Visit Summaryon 73-32-3898Zkikixbwxu Visit Summary Ambulatory Visit Summary STACIA PARK :1955 Visit Date:12/19/2024 Ambulatory Visit Instructions Your Diagnosis Personal history of bladder cancer Other urethral stricture, female OAB (overactive bladder) Your Care Team Attending Physician - LIV MEDEROS, Gio Ryan Primary Care Physician - DANIELLE SANTORO This Is Your Medications List Contact prescribing physician if questions or concerns alendronate (alendronate 70 mg Tab) ciprofloxacin (Cipro 500 mg Tab) citalopram (citalopram 10 mg Tab) estradiol (estradiol 1 mg Tab) estradiol topical (estradiol 0.1 mg/g Vag Crm) meloxicam (meloxicam 15 mg Tab) Procedures Performed Cystoscopy (12/19/2024), Flexible cystoscopy (12/21/2023), Flexible cystoscope (08/17/2023), Cystoscopy (08/25/2022), Cystoscopy (09/01/2021), Cystoscopy (02/05/2020), Cystoscopy (08/21/2019), Instillation of BCG into the bladder (07/24/2018), Cystoscopy (05/01/2018), Laser bladder lesion therapy (0 08/23/2017), Cystoscopy and transurethral resection of bladder tumour (05/20/2016), Appendectomy, Colonoscopy, Hysterectomy, Tubal ligation. Discharge Vitals Temperature (Temporal Artery) 37 ???C Heart Rate (Peripheral) 69 Respiratory Rate 19 Blood Pressure 130/88 Height 162 cm Height 64 in Weight 72.1 kg Weight 158.953 lb BMI 27.47 What to do next You Need to Schedule the Following Appointments Follow Up with LIV MEDEROS, SHELDON Maya When: Comments: cysto/FISH/cytol in 1 yr Where: [address] [place] [address] [place] [address] Medications What How Much When Instructions Unchanged alendronate (alendronate 70 mg Tab) Contact prescribing physician if questions or concerns Unchanged ciprofloxacin (Cipro 500 mg Tab) 1 Tablets By Mouth Every day Take 1 tablet the day before the procedure and 1 tablet after the procedure Contact prescribing physician if questions or concerns [...] sites of bladder Depression History of UTI Hypertensive disorder Hypocalcemia Lesion of bladder Microscopic hematuria OAB (overactive bladder) Other urethral stricture, female Personal history of bladder cancer Patient Survey You may receive a survey via text or e-mail asking about your office visit. Please share your experience with us by completing your survey. We appreciate your feedback and thank you for choosing us for your care. Education Materials Cancer Screening: Female A cancer screening is a test or exam that checks for cancer. Work with your health care provider tocreate a cancer screening schedule that protects your health. Who should have screening? All females should be considered for screening of certain cancers, including breast cancer, cervical cancer, colorectal cancer, endometrial cancer, lung cancer, and skin cancer. Your health care provider may recommend screenings for other types of cancer if: ??? You have had cancer before. ??? You have a family member with cancer. ??? You have genes that could increase the risk of cancer. ??? You have risk factors for certain cancers, such as current or past use of tobacco products or beingoverweight. What are the benefits of screening? Cancer screening is done to look for cancer in the very early stages, before it spreads and becomesharder to treat and before you would start to notice symptoms. Finding cancer early improves the chances of successful treatment. It may save your life. When should I be screened for cancer? When you should be screened for cancer depends on: ??? Your age. ??? Your medical history and your family's medical history. ??? Certain lifestyle factors, such as smoking or other use of tobacco products. ??? Environmental exposure, such as to asbestos. How is screening done? Breast cancer Breast cancer screening is done with a test that takes images of breast tissue (mammogram) using anX-ray machine. Here are some screening guidelines for females at average risk: ??? When you are 40???44 years old, you should be given the choice to start having mammograms. ??? When you are 45???54 years old, you should have a mammogram every year. ??? You may start having mammograms before you ar (more content not included)... NormalFishJohns Hopkins Bayview Medical CenterUroVysion Fish and Urine Cyto ([facility])on 72-46-1656DONY Method of ExtractionVoidedNormalUpper Valley Medical Center Comment on above:Performed By: #### [id number] #### [facility] [address] [place] [id number] Number of Spzw9Fsbwtgs Interpretation MelvaUpper Valley Medical CenterComment on above:Performed By: #### [id number] #### [facility] [address] [place], [place] [address]CIGN SpecimenUrineNormHolzer Medical Center – JacksonComment on above:Performed By: #### [id number] #### [facility] [address] [place], [place] [address]JZEN Type of ServiceTechnical OnlyNoTriHealth McCullough-Hyde Memorial HospitalComment on above:Performed By: #### [id number] #### [facility] [address] [place], [place] [address]Gggvmwj Office/Clinic Noteon 55-04-0262Mrrzycc Office/Clinic NoteUrology Office/Clinic Note Chief Complaint cystoscopy HPI Staff Cysto Need fish/cytol, 1 yr bt chk History of Present Illness Tests reviewed: reviewed op note, FISH I have reviewed the previous health record information and history for this patient from Dr. Peck. I have reviewed and verified the staff HPI to be accurate for this encounter. Review of Systems PHQ Score Initial [...] Physical Exam Vitals & Measurements T: 37 ???C(Temporal Artery) HR: 69(Peripheral) RR: 19 BP: 130/88 HT: 64 in HT: 162 cm WT: 72.1 kg WT: 158.953 lb BMI: 27.47 General Appearance: alert , no acute distress, well nourished, well developed female. Procedure Operative Information Anesthesia Type: Local Procedure: [...] the Cystoscope is introduced. The Urethra is: Tightno a.v. The Bladder: No tumors or stones, Trabeculated: None (0) The Ureteral orifices: Show efflux of clear urine The Urethra was dilated to: 22-30 Monegasque with sounds. Specimens Removed: Voided specimen sent for FISH [...] - Non-invasive low grade papillary urothelial carcinoma. BCG #3/3 02/19/19. [1] Last cysto 12/21/23 - Neg. Pt had 1 yr IO cysto/UD to check for bladder tumor recurrence without complications today. Pt took prophylactic abx prior to procedure. Will send voided specimen for FISH/cytol and call pt if positive. -Surveillance cysto in 1 yr 2. Other urethral stricture, female (N35.82: Other urethral stricture, female) See procedure section. 3. OAB (overactive bladder) (N32.81: Overactive bladder) Reports increased frequency and urgency along with s/p pain/pressure. Also, difficult to void at times. Voiding in small amounts. Does not feel sxs are bothersome enough to warrant medication at thistime. -Cont sx monitoring. Call if sxs become bothersome and wishes to pursue tx. Follow-up With When Contact Information LIV MEDEROS, Gio Ryan, URL [address] [facility] [place] [address] Additional Instructions: cysto/FISH/cytol in 1 yr Patient Education Cancer Screening for Females Maria Teresa Agrawal, personally scribed for Dr. Peck on 12/19/2024 08:05:09. . Documentation recorded by the Maria Teresa leone, accurately reflects the services(s) I performed and decisions made by me. Authenticated by Dr. ePck on 12/19/2024 08:10:35. Problem List/Past Medical History Ongoing Cancer of overlapping sites of bladder Depression History of UTI Hypertensive disorder Hypocalcemia Lesion of bladder Microscopic hematuria OAB (overactive bladder) Other urethral stricture, female Personal history of bladder cancer Historical No qualifying data Procedure/Surgical History Cystoscopy (12/19/2024), Flexible cystoscopy (12/21/2023), Flexible cystoscope (08/17/2023), Cystoscopy (08/25/2022), Cystoscopy (09/01/2021), Cystoscopy (02/05/2020), Cystoscopy (08/21/2019), Instillation of BCG into the bladder (07/24/2018), Cystoscopy (05/01/2018), Laser bladder lesion therapy (0 08/23/2017), Cystoscopy and transurethral resection of bladder tumour (05/20/2016), Appendectomy, Colonoscopy, Hysterectomy, Tubal ligation. Medications alendronate 70 mg Tab Cipro 500 mg Tab, 500 mg= 1 tab(s), Oral, Daily citalopram 10 mg Tab, 10 mg= 1 tab(s), Oral, Daily estradiol 0.1 mg/g Vag Crm estradiol 1 mg Tab meloxicam 15 mg Tab Allergies No Known Medication Allergies Social History Alcohol - Low Risk, 08/21/2019 Current. Beer. 1-2 times per week., 12/14/2024 Substance Abuse - Denies Substance Abuse, 08/21/2019 Never (more content not included)...[facility] Medical CenterComment on above:Result Comment: Electronically Signed By: Gio PECK MD\.br\Date and Time Signed: 12/19/24 08:10 EDT\.br\Electronically Co-Signed By: Maria Teresa Cabral.br\Date and Time Co-Signed: 12/19/24 08:05 EDTReminderson 12-06-2024 RemindersReminders From: Tiffanie Carroll To: EU - Recalls Liv; Sent: 12/06/2024 11:48:15 EDT Show up: 09/02/2025 11:48:00 EDT Subject: cysto/fish/cytol Due Date/Time: 09/30/2025 11:48:00 EDT Reminder/Recall Patient is due in Dec 2025 for 1 year cysto/fish[facility]cytol, [facility] [id number] From: Tiffanie Carroll To: EU - Recalls Peck; Sent: 12/21/2023 08:33:31 EDT Show up: 10/02/2024 08:32:00 EDT Subject: cysto/fish/cytol Due Date/Time: 10/29/2024 08:32:00 EDT Reminder/Recall Patient is due in Dec 2024 for 1 year cysto/fish/cytol, ck Patient called back. Patient sched for 12/19/24 in [place].[facility] [phone] From: Tiffanie Carroll To: EU - Recalls Peck; Sent: 12/14/2023 20:48:07 EDT Show up: 10/02/2024 20:47:00 EDT Subject: Cysto/fish/cytol Due Date/Time: 10/29/2024 20:48:00 EDT Reminder/Recall Patient is due for 1 year cysto/fish/cytol in Dec 2024 (bt ck) [facility] Urineon [id number] identified Cx Nom (U)Microbiology PROCEDURE: Urine Culture [R1] SOURCE: U CleanCatch BODY SITE: COLLECTED DATE/TIME: 01/03/2024 09:40 EDT RECEIVED DATE/TIME: 01/03/2024 17:53 EDT START DATE/TIME: 01/03/2024 17:53 EDT FREE TEXT SOURCE: LIV MEDEROS, Gio PECK MD, Gio Ryan FINAL REPORTS Final Report [] Verified Date/Time: 01/06/2024 12:17 EDT 5,000 cfu/ml Streptococcus agalactiae (Group B) Presumptive isolated. Penicillin is the drug of choice for Beta Hemolytic Streptococci Isolates. Routine susceptibility testing on Beta Hemolytic Streptococcus isolates is no longer performed. Susceptibilities will continue to be performed on Isolates from sterile body fluids and serious wound infections. 500 cfu/ml Mixed skin contaminants Performing Locations R1: This test was performed at: [facility], [address] [place] [address], [phone] , , RilygyBdvvlqHolzer Medical Center – JacksonComment on above:Performed By: #### [id number] #### [facility] [address] [place] [id number] Fish and Urine Cyto ( Labs)on [id number] & UC Diagnosis InfoInvalid Interpretation Wilson Street HospitalComment on above:Result Comment: A:Urine,Bladder Wash:Bladder Wash Interpretation - Adequate cellularity for evaluation. Interpretation - The UroVysion FISH study detected normal [...] be correlated with cytology and cystoscopy results.* MicroScopic Description - MicroScopic Description - Electronically signed by : on: 12/26/2023 16:17:33Performed By: #### [id number] #### [facility] [address] [place] [id number] Visit Summaryon [id number] Visit Summary Ambulatory Visit Summary BOBO STACIA A :1955 Visit Date:12/21/2023 Ambulatory Visit Instructions Your Diagnosis Personal history of bladder cancer Lesion of bladder Your Care Team Attending Physician - LIV MEDEROS, Gio Ryan Primary Care Physician - DANIELLE SANTORO This Is Your Medications List Contact prescribing physician if questions or concerns alendronate (alendronate 70 mg Tab) citalopram (citalopram 10 mg Tab) estradiol (estradiol 1 mg Tab) estradiol topical (estradiol 0.1 mg/g Vag Crm) meloxicam (meloxicam 15 mg Tab) [Image Removed: STOP]Stop taking these medications ciprofloxacin (Cipro 500 mg Tab) ciprofloxacin (Cipro 500 mg Tab) Procedures Performed Flexible cystoscopy (12/21/2023), Flexible cystoscope (08/17/2023), Cystoscopy (08/25/2022), Cystoscopy (09/01/2021), Cystoscopy (02/05/2020), Cystoscopy (08/21/2019), Instillation of BCG into the bladder (07/24/2018), Cystoscopy (05/01/2018), Laser bladder lesion therapy (08/23/2017), Cystoscopy and transurethral resection of bladder tumour (05/20/2016), Appendectomy, Colonoscopy, Hysterectomy, Tubal ligation. Discharge Vitals Heart Rate (Peripheral) 80 Blood Pressure 140/96 Height 162 cm Height 64 in Weight 80 kg Weight 176 lb BMI 30.48 What to do next You Need to Schedule the Following Appointments Follow Up with LIV MEDEROS, SHELDON Maya When: Where: [facility] [address] , [place] [phone] Medications What How Much When Instructions Unchanged alendronate (alendronate 70 mg Tab) Contact [...] Contact prescribing physician if questions or concerns What How Much When Comments Stop Taking ciprofloxacin (Cipro 500 mg Tab) 1 Tablets By Mouth Every day Take 1 tablet the day before the procedure and 1 tablet after the procedure Stop Taking ciprofloxacin (Cipro 500 mg Tab) 1 Tablets By Mouth Every day Take 1 tablet the day before the procedure and 1 tablet after the procedure Medications and Immunizations Administered Given lidocaine Top 2% Gel w/Appl 6 mL, 6 mL, Topical. For: Personal history of bladder cancer Allergies No Known Medication Allergies Problems Ongoing - Any problem that you are currently receiving treatment for. Cancer of overlapping sites of bladder Depression History of UTI Hypertensive disorder Hypocalcemia Lesion of bladder Microscopic hematuria Personal history of bladder cancer Patient Survey You may receive a survey via text or e-mail asking about your office visit. Please share your experience with us by completing your survey. We appreciate your feedback and thank you for choosing us for your care. Education Materials Cancer Screening: Female A cancer screening is a test or exam that checks for cancer. Work with your health care provider tocreate a cancer screening schedule that protects your health. Who should have screening? All females should be considered for screening of certain cancers, including breast cancer, cervical cancer, colorectal cancer, endometrial cancer, lung cancer, and skin cancer. Your health care provider may recommend screenings for other types of cancer if: ? You have had cancer before. ? You have a family member with cancer. ? You have genes that could increase the risk of cancer. ? You have risk factors for certain cancers, such as current or past use of tobacco products or beingoverweight. What are the benefits of screening? Cancer screening is done to look for cancer in the very early stages, before it spreads and becomesharder to treat and before you would start to notice symptoms. Finding cancer early improves the chances of successful treatment. It may save your life. When should I be screened for cancer? When you should be screened for cancer depends on: ? Your age. ? Your medical history and your family's medical history. ? Certain lifestyle factors, such as smoking or other use of tobacco products. ? Environmental exposure, such as to asbestos. How is screening done? Breast cancer Breast cancer screening is done with a test that takes images of breast tissue (mammogram) using anX-ray machine. Here are some screening guidelines for females at average risk: ? When you are 40?44 years old, you should be given the choice to start having mammograms. ? When you are 45?54 years old, you should have a mammogram every year. ? You may start having mammograms before you are 45 years old if (more content not included)...NormalFisher [facility] Medical CenterUroVysion Fish and Urine Cyto ( Labs)on [id number] Method of ExtractionBladder WashNormalFisher [facility] Medical CenterComment on above:Performed By: #### [id number] #### [facility] [address], [place] [address]GAYQ Number of Gkpb3Uvstwjq Interpretation Wilson Street HospitalComment on above:Performed By: #### [id number] #### [facility] [address], [place] [address]KKOU SpecimenBladder [facility] Comment on above:Performed By: #### [id number] #### [facility] [address], [place] [address]HRYL Type of ServiceTechnical OnlyChillicothe VA Medical CenterComment on above:Performed By: #### [id number] #### [facility] [address], [place] [address]Kbtguxw Office/Clinic Noteon [id number] Office/Clinic NoteUrology Office/Clinic Note Chief Complaint Cysto HPI Staff Cysto. Needs fish/cytol. Abx taken. History of Present Illness Tests reviewed: reviewed FISH/cytology I have reviewed the previous health record information and history for this patient from Dr. Peck. I have reviewed and verified the staff HPI to be accurate for this encounter. Review of Systems PHQ Score Initial [...] HPI. Physical Exam Vitals & Measurements HR: 80(Peripheral) BP: 140/96 HT: 64 in HT: 162 cm WT: 80 kg WT: 176 lb BMI: 30.48 General Appearance: alert , no acute distress, well nourished, well developed female. Procedure Operative Information Anesthesia Type: Local Procedure: [...] introduced. The Urethra is: Normal The Bladder: No tumors or stones. Previous suspicious area no longer present., Trabeculated: None (0) The Ureteral orifices: Show efflux of clear urine Specimens Removed: Bladder wash sent for FISH and Cytology test Removal: [...] - Non-invasive low grade papillary urothelial carcinoma. BCG #3/3 02/19/19. Most recent Cysto 08/17/23 - No papillary tumors but on the floor adjacent to resection site on theright are four tiny flat red areas extending from tiny blood vessels, ?early tumors?. Neg FISH/Cytol. Pt had IO cysto to check for bladder tumor recurrence without complications today. Pt took prophylactic abx prior to procedure. Will send bladder wash specimen for FISH/cytol and call pt if positive.Cysto today was negative for recurrence. -cysto/FISH/cytol in 1 yr (recall in place) 2. Lesion of bladder (N32.9: Bladder disorder, unspecified) Most recent Cysto 08/17/23 - No papillary tumors but on the floor adjacent to resection site on theright are four tiny flat red areas extending from tiny blood vessels, ?early tumors?. Area not present per cysto today. Follow-up With When Contact Information LIV MEDEROS, Gio Ryan, [facility] [address], [place] [address]- [phone] Additional Instructions: cysto/FISH/cytol in 1 yr Patient Education Cancer Screening for Females Maria Teresa Agrawal, personally scribed for Dr. Peck on 12/21/2023 08:27:41. . Documentation recorded by the scribe, Maria Teresa Cabral, accurately reflects the services(s) I performed and decisions made by me. Authenticated by Dr. Peck on 12/21/2023 08:29:59. Problem List/Past Medical History Ongoing Cancer of overlapping sites of bladder Depression History of UTI Hypertensive disorder Hypocalcemia Lesion of bladder Microscopic hematuria Personal history of bladder cancer Historical No qualifying data Procedure/Surgical History Flexible cystoscopy (12/21/2023), Flexible cystoscope (08/17/2023), Cystoscopy (08/25/2022), Cystoscopy (09/01/2021), Cystoscopy (02/05/2020), Cystoscopy (08/21/2019), Instillation of BCG into the bladder (07/24/2018), Cystoscopy (05/01/2018), Laser bladder lesion therapy (08/23/2017), Cystoscopy and transurethral resection of bladder tumour (05/20/2016), Appendectomy, Colonoscopy, Hysterectomy, Tubal ligation. Medications alendronate 70 mg Tab Cipro 500 mg Tab, 500 mg= 1 tab(s), Oral, Daily Cipro 500 mg Tab, 500 mg= 1 tab(s), Oral, Daily citalopram 10 mg Tab, 10 mg= 1 tab(s), Oral, Daily estradiol 0.1 mg/g Vag Crm estradiol 1 mg Tab meloxicam 15 mg Tab Allergies No Known Medication Allergies Social History Alcohol - Low Risk, 08/21/2019 Current, 1-2 times per week, 02/05/2019 Substance Abuse - Denies Substance Abuse, 08/21/2019 Tobacco - Denies Tobacco Use (more content not included)...[facility] Medical CenterComment on above:Result Comment: Electronically Signed By: Gio PECK MD\.br\Date and Time Signed: 12/21/23 08:30 EDT\.br\Electronically Co-Signed By: Maria Teresa Cabral.br\Date and Time Co-Signed: 12/21/23 08:28 EDT Complete Blood Count Auto Diffon [id number] (Bld) [#/Vol]0.0 10*3/uL Normal0.0-0.2FCity HospitalComment on above:Order Comment: Reason for Exam IBS (irritable bowel syndrome)Result Comment: PERFORMED BY: [place] [address] PATHOLOGIST VALVE MAKER CARY GARCIA M.D.Performed By: #### CBC, CMP #### [place] [address] USABasophils/100 WBC (Bld)0.9 %Normal.[facility] HospitalComment on above:Order Comment: Reason for Exam IBS (irritable bowel syndrome)Performed By: #### CBC, CMP #### [place] [address] USAEosinophils (Bld) [#/Vol]0.1 10*3/uLNormal0.0-0.45 [facility] HospitalComment on above:Order Comment: Reason for Exam IBS (irritable bowel syndrome)Performed By: #### CBC, CMP #### [place] [address] USAEosinophils/100 WBC (Bld)2.2 %Normal.[facility] HospitalComment on above:Order Comment: Reason for Exam IBS (irritable bowel syndrome)Performed By: #### CBC, CMP #### [place] [address] USAErythrocyte distribution width (RBC) [Ratio]13.7 %Normal 11.9-15.3FCity HospitalComment on above:Order Comment: Reason for Exam IBS (irritable bowel syndrome)Performed By: #### CBC, CMP #### [place] [address] USAHematocrit (Bld) [Volume fraction]39.1 %Ixywue00.0-46.4 [facility] HospitalComment on above:Order Comment: Reason for Exam IBS (irritable bowel syndrome)Performed By: #### CBC, CMP #### [place] [address] USAHemoglobin (Bld) [Mass/Vol]13.1 g/sFHcqyqi41.8-15.4 [facility] HospitalComment on above:Order Comment: Reason for Exam IBS (irritable bowel syndrome)Performed By: #### CBC, CMP #### [facility] [address] [place] [address] USALymphocytes (Bld) [#/Vol]0.9 10*3/uLLow1.00-4.8[facility] HospitalComment on above:Order Comment: Reason for Exam IBS (irritable bowel syndrome)Performed By: #### CBC, CMP #### [facility] [address] [place] [id number] USALymphocytes/100 WBC (Bld)20.5 %Normal.[facility] HospitalComment on above:Order Comment: Reason for Exam IBS (irritable bowel syndrome)Performed By: #### CBC, CMP #### [facility] [address]H (RBC) [Entitic mass]30.5 bmSdndzh21.7-34.3FCity HospitalComment on above:Order Comment: Reason for Exam IBS (irritable bowel syndrome)Performed By: #### CBC, CMP #### [facility] [address] StreetMCV (RBC) [Entitic vol]90.6 oTHjblvx91-537BwyzaoafsPromedica Bay Park HospitalComment on above:Order Comment: Reason for Exam IBS (irritable bowel syndrome)Performed By: #### CBC, CMP #### [facility] [address] [place] [address] USAMean Corpuscular HGB Conc33.6 g/tCBuppfq04.0-35.0[facility] HospitalComment on above:Order Comment: Reason for Exam IBS (irritable bowel syndrome)Performed By: #### CBC, CMP #### [facility] [address] [place] [address] USAMonocytes (Bld) [#/Vol]0.4 10*3/uLNormal0.0-0.8[facility] HospitalComment on above:Order Comment: Reason for Exam IBS (irritable bowel syndrome)Performed By: #### CBC, CMP #### [place] [address] USAMonocytes/100 WBC (Bld)8.7 %Normal.[facility] HospitalComment on above:Order Comment: Reason for Exam IBS (irritable bowel syndrome)Performed By: #### CBC, CMP #### [facility] [address] [place] [address] USANeutrophils (Bld) [#/Vol]3.1 10*3/uLNormal1.8-7.7FCity HospitalComment on above:Order Comment: Reason for Exam IBS (irritable bowel syndrome)Performed By: #### CBC, CMP #### [facility] [address] [place] [address] USANeutrophils/100 WBC (Bld)67.7 %Normal.[facility] HospitalComment on above:Order Comment: Reason for Exam IBS (irritable bowel syndrome)Performed By: #### CBC, CMP #### [place] [address] USANRBC%0.2 /100{WBC}Normal0-0.5FCity HospitalComment on above:Order Comment: Reason for Exam IBS (irritable bowel syndrome)Performed By: #### CBC, CMP #### [facility] [address] [place] [address] USAPlatelet mean volume (Bld) [Entitic vol]9.5 fLNormal 6.3-10.7FCity HospitalComment on above:Order Comment: Reason for Exam IBS (irritable bowel syndrome)Performed By: #### CBC, CMP #### [facility] [address] [place] [address] USAPlatelets (Bld) [#/Vol]230 10*3/xPVzcenf767-563EbxqheszqPromedica Bay Park HospitalComment on above:Order Comment: Reason for Exam IBS (irritable bowel syndrome)Performed By: #### CBC, CMP #### [place] [address] USARBC (Bld) [#/Vol]4.31 10*6/uLNormal3.60-5.00[facility] HospitalComment on above:Order Comment: Reason for Exam IBS (irritable bowel syndrome)Performed By: #### CBC, CMP #### [facility] [address] [place] [address] USAWBC (Bld) [#/Vol]4.5 10*3/uLNormal3.8-11.6FCity HospitalComment on above:Order Comment: Reason for Exam IBS (irritable bowel syndrome)Performed By: #### CBC, CMP #### [facility] [address] [place] [address] USAComprehensive Metabolic Panelon [id number] [Mass/Vol]4.3 g/dLNormal3.5-5.7FCity HospitalComment on above:Order Comment: Reason for Exam IBS (irritable bowel syndrome)Performed By: #### CBC, CMP #### [place] [address] USAAlbumin/Globulin [Mass ratio]2.0 {ratio}NormalPromedica Bay Park HospitalComment on above:Order Comment: Reason for Exam IBS (irritable bowel syndrome)Performed By: #### CBC, CMP #### [place] [address] USAALP [Catalytic activity/Vol]51 U/AUljqwf66-437GqdeowjuvPromedica Bay Park HospitalComment on above:Order Comment: Reason for Exam IBS (irritable bowel syndrome)Result Comment: PERFORMED BY: [place] [address] PATHOLOGIST VALVE MAKER CARY GARCIA M.D.Performed By: #### CBC, CMP #### [facility] [address] [place] [address] USAALT [Catalytic activity/Vol]21 U/LNormal7-52[facility] HospitalComment on above:Order Comment: Reason for Exam IBS (irritable bowel syndrome)Performed By: #### CBC, CMP #### [place] [address] USAAnion gap [Moles/Vol]8.5 mmol/LNormal6.0-15.0[facility] HospitalComment on above:Order Comment: Reason for Exam IBS (irritable bowel syndrome)Performed By: #### CBC, CMP #### [facility] [address] [place] [address] USAAST [Catalytic activity/Vol]18 U/CAesxxo52-67QqrwztocwPromedica Bay Park HospitalComment on above:Order Comment: Reason for Exam IBS (irritable bowel syndrome)Performed By: #### CBC, CMP #### [facility] [address] [place] [address] USABilirubin [Mass/Vol]0.6 mg/dLNormal0.3-1.0[facility] HospitalComment on above:Order Comment: Reason for Exam IBS (irritable bowel syndrome)Performed By: #### CBC, CMP #### [facility] [address] [place] [address] USACalcium [Mass/Vol]9.2 mg/dLNormal8.6-10.3FCity HospitalComment on above:Order Comment: Reason for Exam IBS (irritable bowel syndrome)Performed By: #### CBC, CMP #### [facility] [address] [place] [address] USAChloride [Moles/Vol]107 mmol/LCerqfh90-255FeukjgpgnPromedica Bay Park HospitalComment on above:Order Comment: Reason for Exam IBS (irritable bowel syndrome)Performed By: #### CBC, CMP #### [facility] [address] [place] [address] USACO2 [Moles/Vol]30.2 mmol/DRagliv05.0-31.0[facility] HospitalComment on above:Order Comment: Reason for Exam IBS (irritable bowel syndrome)Performed By: #### CBC, CMP #### [facility] [address] [place] [address] USACreatinine [Mass/Vol]0.77 mg/dLNormal0.60-1.20[facility] HospitalComment on above:Order Comment: Reason for Exam IBS (irritable bowel syndrome)Performed By: #### CBC, CMP #### [facility] [address] [place] [address] USAGFR/1.73 sq M.predicted MDRD (S/P/Bld) [Vol rate/Area] mL/min/{1.73_m2}NormalPromedica Bay Park HospitalComment on above:Order Comment: Reason for Exam IBS (irritable bowel syndrome)Performed By: #### CBC, CMP #### [facility] [address] [place] [id number] USAGlobulin (S) [Mass/Vol]2.2 g/dLNormalPromedica Bay Park HospitalComment on above:Order Comment: Reason for Exam IBS (irritable bowel syndrome)Performed By: #### CBC, CMP #### [facility] [address] [place] [address] USAGlucose [Mass/Vol]90 mg/zPPwhmwu14-015FpuapqlycPromedica Bay Park HospitalComment on above:Order Comment: Reason for Exam IBS (irritable bowel syndrome)Result Comment: Random Glucose Reference Range is dependent on time and content of last meal. Glucose of more than 200 mg/dL in a nonstressed, ambulatory subject supports the diagnosis of Diabetes Mellitus. ADA recommended reference rangePerformed By: #### CBC, CMP #### [facility] [address] [place] [address] USAPotassium [Moles/Vol]4.7 mmol/LNormal3.5-5.1FCity HospitalComment on above:Order Comment: Reason for Exam IBS (irritable bowel syndrome)Performed By: #### CBC, CMP #### [facility] [address] [place] [address] USAProtein [Mass/Vol]6.5 g/dLNormal6.4-8.9[facility] HospitalComment on above:Order Comment: Reason for Exam IBS (irritable bowel syndrome)Performed By: #### CBC, CMP #### [facility] [address] [place] [address] USASodium [Moles/Vol]141 mmol/GHprsui564-253KclamwaerPromedica Bay Park HospitalComment on above:Order Comment: Reason for Exam IBS (irritable bowel syndrome)Performed By: #### CBC, CMP #### [facility] [address] [place] [address] USAUrea nitrogen [Mass/Vol]17 mg/dLNormal7-25[facility] HospitalComment on above:Order Comment: Reason for Exam IBS (irritable bowel syndrome)Performed By: #### CBC, CMP #### [facility] [address] [place] [address] USAMG MAMM SCREEN 3D DELMA CADon [id number] MAMM SCREEN 3D DELMA CADPatient: STACIA PARK Exam Date: 08/04/2022 : 1955 Gender:F Ordering : DR STEPHEN PRUITT . Admission #: [id number] Family : Order #: [id number] CLICK HERE TO VIEW EXAM RADIOLOGY REPORT [...] bladder/prostate cancer at age 77. LOCATION: [facility] BREAST COMPOSITION: Heterogeneously dense,which may obscure small [...] by: Antony Fraga MD on 08/04/2022 at 13:48[facility] DaytonXR DEXA BONE DENSITYon [id number] DEXA BONE DENSITYEXAMINATION: XR DEXA BONE DENSITY, 08/04/2022 8:19 AM [...] Electronically authenticated by: ANTONY FRAGA Date: 2022-08-04 17:13[facility] PANEL 2: 30 to 65on 08-02-2022..NormalTrinity Health System [facility] Campus on above:Performed By: #### [id number] #### [facility] [address] [place] [address] Dr. Antonio MaciasAge [facility] ACOG TestingCommentTogus VA Medical Center on above:Result Comment: <21 or >65 or no age providedPerformed By: #### [id number] #### [facility] [address] [place] [address] Dr. Antonio MaciasDIAGNOSIS:CommentTogus VA Medical Center on above: Result Comment: NEGATIVE FOR INTRAEPITHELIAL LESION OR MALIGNANCY. CELLULAR CHANGES ASSOCIATED WITH ATROPHY ARE PRESENT.Performed By: #### [id number] #### [facility] [address] [place] [address] Dr. Antonio MaciasMethodology:CommentTogus VA Medical Center on above: Result Comment: This liquid based ThinPrep(R) pap test was screened with the use of an image guided system.Performed By: #### [id number] #### [facility] [address] [place] [address] Dr. Antonio MaciasNote:CommentTogus VA Medical Center on above:Result Comment: The Pap smear is a screening test designed to aid in the detection of premalignant and malignant conditions of the uterine cervix. It is not a diagnostic procedure and should not be used as the sole means of detecting cervical cancer. Both false-positive and false-negative reports do occur. .Performed By: #### [id number] #### [facility] [address] [place] [address] Dr. Antonio MaciasPerformed by:CommentNormalThe Scooba HospitalComment on above: Result Comment: Thalia Louis, Engraver Signature (ASCP)Performed By: #### [id number] #### [facility] [address] [place] [address] Dr. Antonio Glover adequacy:CommentTogus VA Medical Center on above:Result Comment: Satisfactory for evaluation. Endocervical component may not be distinguished in cases of atrophy.Performed By: #### [id number] #### [facility] [address] [place] [address] Dr. Antonio Elias AUTO DIFFon [id number] #0.0 103/ulNormal0.0-0.1The [facility] SystemComment on above:Performed By: #### CBC #### [facility] [address] [place] [address] Dr. Antonio MaciasBasophils/100 WBC (Bld)0.6 %Normal0.2-2.0[facility] Comment on above:Performed By: #### CBC #### [facility] [address] [place] [address] Dr. Antonio Heller #0.1 103/ulNormal0.0-0.7The [facility] SystemComment on above: Performed By: #### CBC #### [facility] [address] [place] [address] Dr. Antonio Thurmanosinophils/100 WBC (Bld)2.3 %Normal0.9-7.0[facility] Comment on above:Performed By: #### CBC #### [facility] [address] [place] [address] Dr. Antonio Thurmanrythrocyte distribution width (RBC) [Ratio]12.9 %Mpwiph43.0-15.0 The [facility] SystemComment on above:Performed By: #### CBC #### [facility] [address] [place] [address] Dr. Antonio MaciasHematocrit (Bld) [Volume fraction]41.9 %Kyfstl05.0-48.0The [facility] SystemComment on above:Performed By: #### CBC #### [facility] [address] [address] [address] Antonio MaciasHemoglobin (Bld) [Mass/Vol]13.8 g/cTCzjlly41.0-16.0The [facility] SystemComment on above:Performed By: #### CBC #### [facility] [address] [place] [address] Dr. Atnonio Junior #0.01 10e3/ulNormal0.00-0.03The [facility] SystemComment on above:Performed By: #### CBC #### [facility] [address] [place] [address] Dr. Antonio Junior %0.2 %Normal0.0-0.5The [facility] SystemComment on above: Performed By: #### CBC #### [facility] [address] [place] [address] Dr. Antonio Askew #1.1 103/ulCritically low1.2-3.8The [facility] Comment on above:Performed By: #### CBC #### [facility] [address] [place] [address] Dr. Antonio Chaveshocytes/100 WBC (Bld)22.0 %Cykozw09.5-60.0The [facility] SystemComment on above:Performed By: #### CBC #### [facility] [address] [place] [address] Dr. Antonio JainUAL DIFF REQNONormalThe [facility] SystemComment on above: Performed By: #### CBC #### [facility] [address] [place] [address] Dr. Antonio Fierro (RBC) [Entitic mass]29.9 cfRhonzc39.7-34.0The [facility] SystemComment on above:Performed By: #### CBC #### [facility] [address] [place] [address] Dr. Antonio Fierro (RBC) [Mass/Vol]32.9 g/jWVwounl56.9-35.2The [facility] SystemComment on above:Performed By: #### CBC #### [facility] [address] [address] [address] Antonio FierroV (RBC) [Entitic vol]90.9 aLDtelyv26.0-99.0The [facility] Centerment on above:Performed By: #### CBC #### [facility] [address] [place] [address] Dr. Antonio Santizo #0.4 103/ulNormal0.3-0.8The [facility] SystemComment on above:Performed By: #### CBC #### [facility] [address] [place] [address] Dr. Antonio Albrightocytes/100 WBC (Bld)8.4 %Normal1.7-12.0The [facility] Comment on above:Performed By: #### CBC #### [facility] [address] [place] [address] Dr. Antonio Ny #3.2 103/ulNormal1.4-6.5The [facility] SystemComment on above:Performed By: #### CBC #### [facility] [address] [place] [address] Dr. Antonio Celesteutrophils/100 WBC (Bld)66.5 %Ntxdkc40.0-75.0The [facility] SystemComment on above:Performed By: #### CBC #### [facility] [address] [place] [address] Dr. Antonio Tsanglet mean volume (Bld) [Entitic vol]10.4 fLNormal9.5-13.5The [facility] SystemComment on above:Performed By: #### CBC #### [facility] [address] [place] [address] Dr. Antonio MaciasPLT244 103/ztXvhgev753-560Tfe [facility] Centerment on above: Performed By: #### CBC #### [facility] [address] [place] [address] Dr. Antonio MaciasRBC4.61 106/ulNormal4.20-5.40The [facility] SystemComment on above:Performed By: #### CBC #### [facility] [address] [place] [address] Dr. Antonio MaciasWBC4.9 103/ulNormal4.0-11.0The [facility] SystemComment on above: Performed By: #### CBC #### [facility] [address] [place] [address] Dr. Antonio MaciasPROF 14(COMP METB)on 22-91-5310Mbipnfw [Mass/Vol]4.1 g/dLNormal 3.4-5.0The [facility] SystemComment on above:Performed By: #### CMP, TSH, T4 #### [facility] [address] [place] [address] Dr. Antonio MaciasAlbumin/Globulin [Mass ratio]1.2 {ratio}NormalThe [facility] SystemComment on above:Performed By: #### CMP, TSH, T4 #### [facility] [address] [place] [address] Dr. Antonio Gramajo [Catalytic activity/Vol]120 U/LCritically wjig86-967Izy [facility] SystemComment on above:Performed By: #### CMP, TSH, T4 #### [facility] [address] [place] [address] Dr. Antonio Melgar [Catalytic activity/Vol]51 U/IKfrida59-97Gtx [facility] SystemComment on above:Performed By: #### CMP, TSH, T4 #### [facility] [address] [place] [address] Dr. Antonio Lee gap [Moles/Vol]13.9 mmol/LNormalThe [facility] on above:Performed By: #### CMP, TSH, T4 #### [facility] [address] [place] [address] Dr. Antonio Wade [Catalytic activity/Vol]16 U/CCiilyk87-82Jab [facility] Centerment on above:Performed By: #### CMP, TSH, T4 #### [facility] [address] [place] [address] Dr. Antonio MaciasBilirubin [Mass/Vol]0.7 mg/dLNormal0.2-1.0[facility] Comment on above:Performed By: #### CMP, TSH, T4 #### [facility] [address] [place] [address] Dr. Antonio MaciasCalcium [Mass/Vol]9.4 mg/dLNormal8.5-10.1The [facility] Comment on above:Performed By: #### CMP, TSH, T4 #### [facility] [address] [place] [address] Dr. Antonio MaciasChloride [Moles/Vol]106 mmol/MTaefim21-104Jff [facility] Comment on above:Performed By: #### CMP, TSH, T4 #### [facility] [address] [place] [address] Dr. Antonio MaciasCO2 [Moles/Vol]26.6 mmol/XJxqztn39.0-32.0[facility] Comment on above:Performed By: #### CMP, TSH, T4 #### [facility] [address] [place] [address] Dr. Antonio MaciasCreatinine [Mass/Vol]0.81 mg/dLNormal0.55-1.02[facility] CenterComment on above:Performed By: #### CMP, TSH, T4 #### [facility] [address] [place] [address] Dr. Antonio ThurmanGFR-AF NAURUAN>60Normal>=60The [facility] SystemComment on above:Performed By: #### CMP, TSH, T4 #### [facility] [address] [place] [address] Dr. Antonio ThurmanGFR-NON AF NAURUAN>60Normal>=60The [facility] SystemComment on above:Performed By: #### CMP, TSH, T4 #### [facility] [address] [place] [address] Dr. Antonio MaciasGlobulin (S) [Mass/Vol]3.4 g/dLNormalThe [facility] SystemComment on above:Performed By: #### CMP, TSH, T4 #### [facility] [address] [address] [address] Antonio MaciasGlucose [Mass/Vol]100 mg/aONurvro28-106Ynv [facility] Comment on above:Performed By: #### CMP, TSH, T4 #### [facility] [address] [place] [address] Dr. Antonio MaciasPotassium [Moles/Vol]4.5 mmol/LNormal3.5-5.1The [facility] Comment on above:Performed By: #### CMP, TSH, T4 #### [facility] [address] [place] [address] Dr. Antonio MaciasProtein [Mass/Vol]7.5 g/dLNormal6.4-8.2The [facility] Comment on above:Performed By: #### CMP, TSH, T4 #### [facility] [address] [place] [address] Dr. Antonio MaciasSodium [Moles/Vol]142 mmol/HColyfj274-848Amd [facility] Comment on above:Performed By: #### CMP, TSH, T4 #### [facility] [address] [place] [address] Dr. Antonio MaciasUrea nitrogen [Mass/Vol]18.0 mg/dLNormal7.0-18.0The [facility] SystemComment on above:Performed By: #### CMP, TSH, T4 #### [facility] [address] [place] [address] Dr. Antonio MaciasUrea nitrogen/Creatinine [Mass ratio]22.2 mg/mgNormalThe [facility] SystemComment on above:Performed By: #### CMP, TSH, T4 #### [facility] [address] [place] [address] Dr. Antonio Hayes4on 35-40-8360F6 [Mass/Vol]8.10 ug/dLNormal4.80-13.90The [facility] SystemComment on above:Performed By: #### CMP, TSH, T4 #### [facility] [address] [place] [address] Dr. Antonio Logan 75-09-4475VMJ2.633 uIU/mLNormal0.358-3.740The [facility] SystemComment on above:Performed By: #### CMP, TSH, T4 #### [facility] [address] [address] [address] Antonio MaciasXR CHEST 2 Von 48-98-6071FU CHEST 2 VEXAMINATION: XR CHEST 2 V HISTORY: Cough , shortness breath, [...] Electronically authenticated by: BRENDAN WYATT Date: 2021-10-09 17:17[facility] Vital Signs Date TimeVital SignValuePerforming EvgcrhcoxOukrtgop36-09-6400 07:52-0400Blood Pressure LocationPaun[facility] hospitalk P[facility]K [facility]09-18-2024 07:52-0400Diastolic blood eryhfhxw41 mm[Hg]Gio PECK [facility]09-18-2024 07:52-0400Heart rate80 /minPrmanjindernini PECK [facility]09-18-2024 07:52-0400Systolic blood pcjxubjz017 mm[Hg]Gio PECK [facility]05-15-2024 07:54-0400Body jsmnogbrypz00.6 [degF]Gio PECK [facility]05-15-2024 07:54-0400Diastolic blood sooaiwib68 mm[Hg]Gio PECK [facility]05-15-2024 07:54-0400Heart rate71 /minPatrick PECK [facility]05-15-2024 07:54-0400Respiratory rate16 /minPatrick LIV [facility]05-15-2024 07:54-0400Systolic blood ehddrnqg276 mm[Hg]Gio PECK [facility]08-30-2023 10:30-0400Diastolic blood xzgnwixl48 mm[Hg]DO Jose Miguel Vaca Work Phone: [phone]08-30-2023 10:30-0400 Heart rate54 /DavidO Jose Miguel Vaca Work Phone: [phone] [place], [place] 2167308-30-2023 10:30-0400 Respiratory rate16 /DavidO Jose Miguel Vaca Work Phone: [phone] [place], [place] 2167308-30-2023 10:30-0400 SaO2% (BldA) [Mass fraction]100 %DO Jose Miguel Vaca Work Phone: [phone]08-30-2023 10:30-0400 Systolic blood pifnbtom061 mm[Hg]DO Jose Miguel Vaca Work Phone: [phone] [place], [place] 2167308-30-2023 09:34-0400 Body dllmab705.56 cmDO Jose Miguel Vaca Work Phone: [phone] [place], [place] 2167308-30-2023 09:34-0400 Body brxuviojmdn00.6 [degF]DO Jose Miguel Vaca Work Phone: [phone] [place], [place] 2167308-30-2023 09:34-0400 Body ycdfjd57.84 kgDO Jose Miguel [employer] Work Phone: [phone] [place], [place] 2167309-28-2022 12:21-0400 Blood Pressure LocationJENNIFER BRYAN [facility]09-28-2022 12:21-0400Diastolic blood epbjfrfi85 mm[Hg]FAITH ADAMS [facility]09-28-2022 12:21-0400Heart rate74 /minJENNIFER BRYAN [facility]09-28-2022 12:21-0400Respiratory rate16 /minJENNIFER BRYAN [facility]09-28-2022 12:21-0400Systolic blood apbrewle931 mm[Hg]FAITH ADAMS [facility] Encounters Encounter DateEncounter TypeCare ProviderFacilityStart: 12-19-2024 End: 88-79-8905pyxvutoqaiFQEZWUMS YVANFacility:FTMCStart: 12-19-2024 End: 89-52-9033Pxdggpg encounter procedurePacara Ryan PECK [facility] Start: 01-03-2024 End: 50-75-3891Wji Drop offGio Ryan PECK [facility] Start: 01-03-2024 End: 11-19-6934cmpgipciihYZLEDHNA YVANFacility:FTMCStart: 01-03-2024 End: 72-73-8061Ywbtode encounter procedureGio Ryan PECK [facility] start: 12-21-2023 End: 33-35-5827emubxlbtozBNIDJIMT KRAMERFacility:FTMCStart: 12-21-2023 End: 39-35-8614Qxj Drop offGio Ryan LIV [facility] Start: 12-21-2023 End: 93-26-7550omfrkzlshfBIFQASXG KRAMERFacility:EU [place]kyStart: 12-21-2023 End: 59-37-2977Zkyrvti encounter procedureGio Ryan PECK [facility] Start: 08-17-2023 End: 69-26-6322Jia Drop offGio Ryan PECK [facility] Start: 08-17-2023 End: 50-88-0722Enhlynr encounter procedureGio Ryan PECK [facility] Start: 08-08-2023 End: 09-17-1176ckobvwzjmrWZDLZ FAZIONot AvailableStart: 02-23-2023 End: 28-14-2252ctjptvzskpYUHGYR T BLACKSTONNot AvailableStart: 02-21-2023 End: 24-80-3943wxhnihnkvqEAUITD T BLACKSTONNot AvailableStart: 02-16-2023 End: 14-53-8484lpuprjguevLVMBXQ T BLACK[place]ONNot AvailableStart: 02-14-2023 End: 71-04-2314wcxzwmrvorLAFKNY T BLACKSTONNot AvailableStart: 01-14-2023 End: 74-11-4996wmwviedaoqPTERNQLIJ NO FAMILYFacility:[facility] Hospitaltart: 12-01-2022 End: 56-11-3118fqrkdfisybXgsgrgr HouseFacility:[facility] Start: 12-01-2022 End: 47-46-6876Xogxszrtn to same day surgery [facility] Work Phone: [facility] Work Phone: Start: 12-01-2022 End: 22-52-7829xqkhjmugmrNN Jose Miguel [place] Work Phone: [facility] Work Phone: Start: 08-04-2022 End: 91-36-4223zmqwtdzebzEH STEPHEN PRUITT .Facility:K0Jeibu: 07-26-2022 End: 39-41-2062exnvamgcysSD STEPHEN PRUITT .Facility:T4Wofua: 12-30-2021 End: 08-49-7015Rqmkvss encounter procedureFAITH Gotti BRYAN [facility] start: 11-04-2021 End: 35-49-7905avxelouurqSE JOSE MIGUEL GRANTSFacility:K4Gmrps: 10-09-2021 End: 81-44-1666cqsufbkspxUOMemorial Health System [facility] HospitalFacility:H1 Procedures DateProcedureProcedure DetailPerforming ClinicianStart: 96-08-5488Qtpzyvserv Gio PECK Start: 40-57-2776Bcqoxpvm cystoscopyPacara PECK Start: 80-91-8411Qarhplzo cystoscope (physical object) Gio PECK Start: 33-98-7093EeskpgubnsbSF Jose Miguel Vaca Work Phone: Start: 81-93-6715OtmiepemagDynvwuk WATERS Start: 92-57-4900EcnegdsrxuLUWLFCMV PERRY Start: 03-23-6869JvttvxpdliCOYQILEK BRYAN Start: 92-66-0174EfqdgxhybfTNQUXLVB BRYAN Start: 39-76-3478Jvxjzaabbkwl of BCG into the bladder FAITH ADAMS Comment on above:# 6 started 10/17/2017 # 3 started 07/24/18Start: 92-01-7660MnzocizgooFDCYULZP BRYAN Comment on above:04/26/2016, 08/09/2016Start: 23-38-4126Yaoyt bladder lesion therapyJENNIFER BRYAN Start: 21-00-5476Uwshemytoc and transurethral resection of bladder tumorJENNIFER BRYAN AppendectomyJENNIFER BRYAN ColonoscopyJENNIFER BRYAN HysterectomyJENNIFER BRYAN Ligation of fallopian tubeJENNIFER BRYAN Plan of Treatment DateCare ActivityDetailAuthorStart: 15-41-3766PpnjgbbfePromedica Bay Park Hospital Immunizations Immunization DateImmunizationNotesCare OindkbzeIfxdbmxh13-01-7084zmisojlzo virus vaccine, unspecified formulationUnfold [facility] [place] 767790-16-2023influenza virus vaccine, unspecified formulationPaMindStorm LLC [facility] [place] 767790-03-2022influenza virus vaccine, unspecified formulationPrMindStorm LLC [facility] [place] 767792-13-2021SARS-CoV-2 mRNA (tozinameran 5y-11y) vaccineJENNIFER BRYAN [facility]-17-2021influenza virus vaccine, unspecified formulationPaMindStorm LLC [facility]09-17-2021zoster vaccine recombinantPatrick PECK [facility]05-18-2021SARS-CoV-2 mRNA (tozinameran 5y-11y) vaccineJENNIFER BRYAN [facility]04-20-2021SARS-CoV-2 mRNA (tozinameran 5y-11y) vaccineJENNIFER BRYAN [facility]09-11-2020influenza virus vaccine, unspecified formulationPatrick PECK [facility]11-18-2019bacillus calmette-cl vaccineJENNIFER BRYAN [facility]11-11-2019bacillus calmette-cl vaccineJENNIFER BRYAN [facility]11-04-2019bacillus calmette-cl vaccineJENNIFER BRYAN [facility]09-25-2019influenza virus vaccine, unspecified formulationPatrick PECK [facility]09-25-2018influenza virus vaccine, unspecified formulationPatrick PECK [facility]10-02-2017influenza virus vaccine, unspecified formulationPatrick PECK [facility]09-28-2016influenza virus vaccine, unspecified formulationPatrick PECK [facility]09-23-2015influenza virus vaccine, unspecified formulationPaMindStorm LLC [facility] Rjrfzthe90-87-2729zsswxajus virus vaccine, unspecified formulationPaMindStorm LLC [facility] Haddad DatePayer CategoryPayerPolicy [id number] [id number] [id number] 2.16.840.1.684937.3.57[id number] 2.16.840.1.151522.3.57[id number] 2.16.840.1.417134.3.57[id number] 2.16.840.1.513765.3.579.[id number] 2.16.840.1.117406.3.579.2.[id number] 2.16.840.1.674773.3.579.2.146884-35-2690Kzpcbsb406559 2.16.840.1.420538.3.579.2.101923-32-8219Wnpnhaj72306 2.16.840.1.095951.3.579.2.617229-17-0016Qenpgyw48913 2.16.840.1.334907.3.579.[id number] 2.16.840.1.426869.3.57[id number] 2.16.840.1.763676.3.579.[id number] 2.16.840.1.974142.3.57[id number] 2..840.1.545363.3.57[id number] 2.16.840.1.523988.3.57[id number] 2.16.840.1.163[id number] Health [id number] 2.16.840.1.3[id number] 2.16.840.1.501639.3.579.2.531 Social History DateTypeDetailFacilityStart: 12-30-2021 End: 48-56-3106Mfyeycu smoking statusNever smoked tobacco (finding)[facility]igned At [facility] start: 97-76-2267Qhx Assigned At [facility] HospitalTobacco smoking statusNeverExec[facility] Hospitalexual OrientationExec[facility] Start: 10-92-4237ZswBbpykp (finding)[facility] Goals DatePatient GoalDesired Activity/State Functional Status RlxhNiezxretatZaunqfIgwfhfct04-47-3677Wphaaxbivj StatusN/AExec[facility]05-15-2024Functional StatusN/A[facility]09-28-2022Functional StatusN/A [facility] [place] Clinical Notes 12-30-2021 to 12-19-2024 Note Date & QiljVaguWitraomj76-16-9171 Hospital Discharge instructions Patient Education 12/19/2024 07:50:09 Cancer Screening for Females Cancer Screening: Female A cancer screening is a test or exam that checks for cancer. Work with your health care provider tocreate a cancer screening schedule that protects your health. Who should have screening? All females should be considered for screening of certain cancers, including breast cancer, cervical cancer, colorectal cancer, endometrial cancer, lung cancer, and skin cancer. Your health care provider may recommend screenings for other types of cancer if: You have had cancer before. You have a family member with cancer. You have genes that could increase the risk of cancer. You have risk factors for certain cancers, such as current or past use of tobacco products or beingoverweight. What are the benefits of screening? Cancer screening is done to look for cancer in the very early stages, before it spreads and becomesharder to treat and before you would start to notice symptoms. Finding cancer early improves the chances of successful treatment. It may save your life. When should I be screened for cancer? When you should be screened for cancer depends on: Your age. Your medical history and your family's medical history. Certain lifestyle factors, such as smoking or other use of tobacco products. Environmental exposure, such as to asbestos. How is screening done? Breast cancer Breast cancer screening is done with a test that takes images of breast tissue (mammogram) using anX-ray machine. Here are some screening guidelines for females at average risk: When you are 40 44 years old, you should be given the choice to start having mammograms. When you are 45 54 years old, you should have a mammogram every year. You may start having mammograms before you are 45 years old if you have risk factors for breast cancer, such as having an immediate family member with breast cancer. At 55 years old or older, you should have a mammogram every 1 2 years for as long as you are in good health and have a life expectancy of 10 years or longer. It is important to know what your breasts look and feel like so you can report any changes to your health care provider. Cervical cancer Cervical cancer screening is done with an HPV (human papillomavirus) test to identify the virus that causes cervical cancer. To perform the test, a health care provider takes a swab of cells from thelowest part of the uterus (cervix) during a pelvic exam. This test may be performed along with a Pap test. This testchecks for abnormalities in the cervix. All females at average risk should consider being screened for cervical cancer starting no later than 25 years old and continuing until 65 years old. Screening should not begin earlier than 21 years old. You will have tests every 3 5 years, depending on your results and the type of screening test. Talk with your health care provider about which screening test is right for you and how often you should be screened. ?If you have had the HPV vaccine, you will still be screened for cervical cancer and follow normal screening recommendations. You do not need to be screened for cervical cancer if any of the following apply to you: You are older than 65 years old and you have had normal screening tests in the past 10 years with no serious cervical precancer or cancer in the last 25 years. Your cervix and uterus have been removed, and you have never had cervical cancer or abnormal cells that could become cancer (precancerous cells). Colorectal cancer Colorectal cancer screening looks for cancer or for growths called polyps that often form before cancer starts. Tests to look for cancer or polyps include: Colonoscopy or flexible sigmoidoscopy. For these procedures, a flexible tube with a small camera isinserted into the rectum. CT colonography. This test uses X-rays and contrast dye to check the colon for polyps. Tests to look for cancer in the stool (feces) include: Guaiac-based fecal occult blood test (FOBT). This test can find blood in stool. It can be done at home with a kit. Fecal immunochemical test (FIT). This test can find blood in stool. For this test, you will need tocollect stool samples at home. Stool DNA test. This test looks for blood in stool and any changes in DNA that can lead to colon cancer. For this test, you will need to collect a stool sample at home and send it to a lab. All adults should have screenings starting at 45 years old and continuing through 75 years old. Forfemales 76 85 years old, the decision to be screened should be based on a person's preferences, life expectancy, overall health, and prior screening history. Your health care provider may recommend screening before 45 years old. You will have tests every 1 10 years, depending on your results and the type of screening test. People at increased risk should start screening at an earlier age. Talk with your health care provider about which screening test is right for you and how often you should bescreened. Endometrial cancer There is no standard screening test for endometrial cancer, and females at average risk do not routinely need [...] a family history of ovarian, uterine, or certain types of colon cancer. You are taking tamoxifen, a medicine used to treat breast cancer. If you have reached menopause, it is especially important to talk with your health care provider about any vaginal bleeding or spotting. Screening for endometrial cancer is not recommended for females who do not have symptoms of the [...] packs a day for 10 years. You may need to be screened [...] provider right away if anything looks unusual. Females with a wmkpef-jocz-nybbtv risk for skin cancer may want to see a skin installer (finishing machine tender) for an annual body check. Where to find more information [employer]: cancer.org Centers for Disease Control and Prevention: cdc.gov National Cancer [place]: cancer.gov U.S. Department of Health and Human Services: womenshealth.gov Contact a health care provider if: You have concerns about any signs or symptoms of cancer. These may include: ?Skin problems. You may have: ?Moles of an unusual shape or color. ?Changes in existing moles. ?A sore on your skin that does not heal. ?Tiredness (fatigue) that does not go away. ?Losing weight without trying. ?Blood in your urine or stool. ?Problems with coughing or breathing. These may include: ?Coughing or trouble breathing that does not go away. ?Coughing up blood. ?Lumps or other changes in your breasts. ?Vaginal bleeding, spotting, or changes in your period. ?Frequent pain or cramping in your abdomen. This information is not intended to replace advice given to you by your health care provider. Make sure you discuss any questions you have with your health care provider. Document Revised: 03/29/2023 Document Reviewed: 10/11/2022 [employer] Patient Education 2023 [employer]. Follow Up Care 11/29/2024 14:55:46 With:LIV MEDEROS, Gio Ryan, URL Address: [address] [place] [phone] When: Unknown Comments:cysto/FISH/cytol in 1 yr [facility] 09-17-2025 NotePatient Education Oncology Cancer Screening: Female A cancer screening is a test or exam that checks for cancer. Work with your health care provider tocreate a cancer screening schedule that protects your health. Who should have screening? All females should be considered for screening of certain cancers, including breast cancer, cervical cancer, colorectal cancer, endometrial cancer, lung cancer, and skin cancer. Your health care provider may recommend screenings for other types of cancer if: ??? You have had cancer before. ??? You have a family member with cancer. ??? You have genes that could increase the risk of cancer. ??? You have risk factors for certain cancers, such as current or past use of tobacco products or being overweight. What are the benefits of screening? Cancer screening is done to look for cancer in the very early stages, before it spreads and becomesharder to treat and before you would start to notice symptoms. Finding cancer early improves the chances of successful treatment. It may save your life. When should I be screened for cancer? When you should be screened for cancer depends on: ??? Your age. ??? Your medical history and your family's medical history. ??? Certain lifestyle factors, such as smoking or other use of tobacco products. ??? Environmental exposure, such as to asbestos. How is screening done? Breast cancer Breast cancer screening is done with a test that takes images of breast tissue (mammogram) using anX-ray machine. Here are some screening guidelines for females at average risk: ??? When you are 40?44 years old, you should be given the choice to start having mammograms. ??? When you are 45?54 years old, you should have a mammogram every year. ??? You may start having mammograms before you are 45 years old if you have risk factors for breastcancer, such as having an immediate family member with breast cancer. ??? At 55 years old or older, you should have a mammogram every 1?2 years for as long as you are ingood health and have a life expectancy of 10 years or longer. ??? It is important to know what your breasts look and feel like so you can report any changes to your health care provider. Cervical cancer Cervical cancer screening is done with an HPV (human papillomavirus) test to identify the virus that causes cervical cancer. To perform the test, a health care provider takes a swab of cells from thelowest part of the uterus (cervix) during a pelvic exam. This test may be performed along with a Pap test. This testchecks for abnormalities in the cervix. ??? All females at average risk should consider being screened for cervical cancer starting no later than 25 years old and continuing until 65 years old. Screening should not begin earlier than 21 years old. You will have tests every 3?5 years, depending on your results and the type of screening test. Talk with your health care provider about which screening test is right for you and how often you should be screened. ? If you have had the HPV vaccine, you will still be screened for cervical cancer and follow normalscreening recommendations. You do not need to be screened for cervical cancer if any of the following apply to you: ??? You are older than 65 years old and you have had normal screening tests in the past 10 years with no serious cervical precancer or cancer in the last 25 years. ??? Your cervix and uterus have been removed, and you have never had cervical cancer or abnormal cells that could become cancer (precancerous cells). Colorectal cancer Colorectal cancer screening looks for cancer or for growths called polyps that often form before cancer starts. Tests to look for cancer or polyps include: ??? Colonoscopy or flexible sigmoidoscopy. For these procedures, a flexible tube with a small camera is inserted into the rectum. ??? CT colonography. This test uses X-rays and contrast dye to check the colon for polyps. Tests to look for cancer in the stool (feces) include: ??? Guaiac-based fecal occult blood test (FOBT). This test can find blood in stool. It can be done at home with a kit. ??? Fecal immunochemical test (FIT). This test can find blood in stool. For this test, you will need to collect stool samples at home. ??? Stool DNA test. This test looks for blood in stool and any changes in DNA that can lead to colon cancer. For this test, you will need to collect a stool sample at home and send it to a lab. All adults should have screenings starting at 45 years old and continuing through 75 years old. Forfemales 76?85 years old, the decision to be screened should be based on a person's preferences, life expectancy, overall health, and prior screening history. Your health care provider may recommend screening before 45 years old. You will have tests every 1?10 years, depending on your results and the type of screening test. People at increased risk should start screening at an earlier a (more content not included)...[facility]10-01-2024 Evaluation + Plan note Diagnostic Tests Pending * Urine Culture 01/03/24 [facility] 09-18-2024 Evaluation + Plan note Diagnostic Tests Pending * UroVysion Fish and Urine Cyto ([facility]) 12/21/23 [facility] 09-18-2024 Hospital Discharge instructions Patient Education 12/21/2023 08:27:13 Cancer Screening for Females Cancer Screening: Female A cancer screening is a test or exam that checks for cancer. Work with your health care provider tocreate a cancer screening schedule that protects your health. Who should have screening? All females should be considered for screening of certain cancers, including breast cancer, cervical cancer, colorectal cancer, endometrial cancer, lung cancer, and skin cancer. Your health care provider may recommend screenings for other types of cancer if: You have had cancer before. You have a family member with cancer. You have genes that could increase the risk of cancer. You have risk factors for certain cancers, such as current or past use of tobacco products or beingoverweight. What are the benefits of screening? Cancer screening is done to look for cancer in the very early stages, before it spreads and becomesharder to treat and before you would start to notice symptoms. Finding cancer early improves the chances of successful treatment. It may save your life. When should I be screened for cancer? When you should be screened for cancer depends on: Your age. Your medical history and your family's medical history. Certain lifestyle factors, such as smoking or other use of tobacco products. Environmental exposure, such as to asbestos. How is screening done? Breast cancer Breast cancer screening is done with a test that takes images of breast tissue (mammogram) using anX-ray machine. Here are some screening guidelines for females at average risk: When you are 40 44 years old, you should be given the choice to start having mammograms. When you are 45 54 years old, you should have a mammogram every year. You may start having mammograms before you are 45 years old if you have risk factors for breast cancer, such as having an immediate family member with breast cancer. At 55 years old or older, you should have a mammogram every 1 2 years for as long as you are in good health and have a life expectancy of 10 years or longer. It is important to know what your breasts look and feel like so you can report any changes to your health care provider. Cervical cancer Cervical cancer screening is done with an HPV (human papillomavirus) test to identify the virus that causes cervical cancer. To perform the test, a health care provider takes a swab of cells from thelowest part of the uterus (cervix) during a pelvic exam. This test may be performed along with a Pap test. This testchecks for abnormalities in the cervix. All females at average risk should consider being screened for cervical cancer starting no later than 25 years old and continuing until 65 years old. Screening should not begin earlier than 21 years old. You will have tests every 3 5 years, depending on your results and the type of screening test. Talk with your health care provider about which screening test is right for you and how often you should be screened. ?If you have had the HPV vaccine, you will still be screened for cervical cancer and follow normal screening recommendations. You do not need to be screened for cervical cancer if any of the following apply to you: You are older than 65 years old and you have had normal screening tests in the past 10 years with no serious cervical precancer or cancer in the last 25 years. Your cervix and uterus have been removed, and you have never had cervical cancer or abnormal cells that could become cancer (precancerous cells). Colorectal cancer Colorectal cancer screening looks for cancer or for growths called polyps that often form before cancer starts. Tests to look for cancer or polyps include: Colonoscopy or flexible sigmoidoscopy. For these procedures, a flexible tube with a small camera isinserted into the rectum. CT colonography. This test uses X-rays and contrast dye to check the colon for polyps. Tests to look for cancer in the stool (feces) include: Guaiac-based fecal occult blood test (FOBT). This test can find blood in stool. It can be done at home with a kit. Fecal immunochemical test (FIT). This test can find blood in stool. For this test, you will need tocollect stool samples at home. Stool DNA test. This test looks for blood in stool and any changes in DNA that can lead to colon cancer. For this test, you will need to collect a stool sample at home and send it to a lab. All adults should have screenings starting at 45 years old and continuing through 75 years old. Forfemales 76 85 years old, the decision to be screened should be based on a person's preferences, life expectancy, overall health, and prior screening history. Your health care provider may recommend screening before 45 years old. You will have tests every 1 10 years, depending on your results and the type of screening test. People at increased risk should start screening at an earlier age. Talk with your health care provider about which screening test is right for you and how often you should bescreened. Endometrial cancer There is no standard screening test for endometrial cancer, and females at average risk do not routinely need [...] a family history of ovarian, uterine, or certain types of colon cancer. You are taking tamoxifen, a medicine used to treat breast cancer. If you have reached menopause, it is especially important to talk with your health care provider about any vaginal bleeding or spotting. Screening for endometrial cancer is not recommended for females who do not have symptoms of the [...] packs a day for 10 years. You may need to be screened [...] provider right away if anything looks unusual. Females with a ngpkiu-nepl-pqcyab risk for skin cancer may want to see a skin installer (finishing machine tender) for an annual body check. Where to find more information [employer]: cancer.org Centers for Disease Control and Prevention: cdc.gov National Cancer [place]: cancer.gov U.S. Department of Health and Human Services: womenshealth.gov Contact a health care provider if: You have concerns about any signs or symptoms of cancer. These may include: ?Skin problems. You may have: ?Moles of an unusual shape or color. ?Changes in existing moles. ?A sore on your skin that does not heal. ?Tiredness (fatigue) that does not go away. ?Losing weight without trying. ?Blood in your urine or stool. ?Problems with coughing or breathing. These may include: ?Coughing or trouble breathing that does not go away. ?Coughing up blood. ?Lumps or other changes in your breasts. ?Vaginal bleeding, spotting, or changes in your period. ?Frequent pain or cramping in your abdomen. This information is not intended to replace advice given to you by your health care provider. Make sure you discuss any questions you have with your health care provider. Document Revised: 03/29/2023 Document Reviewed: 10/11/2022 [employer] Patient Education 2023 [employer]. Follow Up Care 10/20/2023 11:53:26 With:LIV MEDEROS, Gio Ryan, URL Address: [facility] [address] , [place] [address]- [phone] When: Unknown [facility] 09-18-2024 NotePatient Education Oncology Cancer Screening: Female A cancer screening is a test or exam that checks for cancer. Work with your health care provider tocreate a cancer screening schedule that protects your health. Who should have screening? All females should be considered for screening of certain cancers, including breast cancer, cervical cancer, colorectal cancer, endometrial cancer, lung cancer, and skin cancer. Your health care provider may recommend screenings for other types of cancer if: ? You have had cancer before. ? You have a family member with cancer. ? You have genes that could increase the risk of cancer. ? You have risk factors for certain cancers, such as current or past use of tobacco products or being overweight. What are the benefits of screening? Cancer screening is done to look for cancer in the very early stages, before it spreads and becomesharder to treat and before you would start to notice symptoms. Finding cancer early improves the chances of successful treatment. It may save your life. When should I be screened for cancer? When you should be screened for cancer depends on: ? Your age. ? Your medical history and your family's medical history. ? Certain lifestyle factors, such as smoking or other use of tobacco products. ? Environmental exposure, such as to asbestos. How is screening done? Breast cancer Breast cancer screening is done with a test that takes images of breast tissue (mammogram) using anX-ray machine. Here are some screening guidelines for females at average risk: ? When you are 40?44 years old, you should be given the choice to start having mammograms. ? When you are 45?54 years old, you should have a mammogram every year. ? You may start having mammograms before you are 45 years old if you have risk factors for breast cancer, such as having an immediate family member with breast cancer. ? At 55 years old or older, you should have a mammogram every 1?2 years for as long as you are in good health and have a life expectancy of 10 years or longer. ? It is important to know what your breasts look and feel like so you can report any changes to your health care provider. Cervical cancer Cervical cancer screening is done with an HPV (human papillomavirus) test to identify the virus that causes cervical cancer. To perform the test, a health care provider takes a swab of cells from thelowest part of the uterus (cervix) during a pelvic exam. This test may be performed along with a Pap test. This testchecks for abnormalities in the cervix. ? All females at average risk should consider being screened for cervical cancer starting no later than 25 years old and continuing until 65 years old. Screening should not begin earlier than 21 years old. You will have tests every 3?5 years, depending on your results and the type of screening test. Talk with your health care provider about which screening test is right for you and how often you should be screened. ? If you have had the HPV vaccine, you will still be screened for cervical cancer and follow normalscreening recommendations. You do not need to be screened for cervical cancer if any of the following apply to you: ? You are older than 65 years old and you have had normal screening tests in the past 10 years withno serious cervical precancer or cancer in the last 25 years. ? Your cervix and uterus have been removed, and you have never had cervical cancer or abnormal cells that could become cancer (precancerous cells). Colorectal cancer Colorectal cancer screening looks for cancer or for growths called polyps that often form before cancer starts. Tests to look for cancer or polyps include: ? Colonoscopy or flexible sigmoidoscopy. For these procedures, a flexible tube with a small camera is inserted into the rectum. ? CT colonography. This test uses X-rays and contrast dye to check the colon for polyps. Tests to look for cancer in the stool (feces) include: ? Guaiac-based fecal occult blood test (FOBT). This test can find blood in stool. It can be done athome with a kit. ? Fecal immunochemical test [...] home and send it to a lab. All adults should have screenings starting at 45 years old and continuing through 75 years old. Forfemales 76?85 years old, the decision to be screened should be based on a person's preferences, life expectancy, overall health, and prior screening history. Your health care provider may recommend screening before 45 years old. You will have tests every 1?10 years, depending on your results and the type of screening test. People at increased risk should start screening at an earlier age. Talk with your health care provider ab (more content not included)...[facility]05-15-2024 Evaluation + Plan note Diagnostic Tests Pending * UroVysion Fish and Urine Cyto ([facility]) 08/17/23 [facility]05-15-2024 Hospital Discharge instructions Patient Education 08/17/2023 08:00:14 [...] along with a Pap test. This testchecks forabnormalities in the lowest part of the uterus [...] a flexible tube with a small camera isinserted into the rectum. CT colonography. This test uses X-rays and a contrast dye to check the colon for polyps. If a polypis found, you may need to have a [...] stool. For this test, you will need tocollect stool samples at home. Stool DNA test. [...] if anything looks unusual. Women with a taeydc-sedh-zyprck risk for skin cancer may want to see a skin installer (finishing machine tender) for an annual body check. What are the benefits of screening? Cancer screening is done to look for cancer in the very early stages, before it spreads and becomesharder to treat and before you would start to notice symptoms. Finding cancer early improves the chances of successful treatment. It may save your life. Where to find more information [employer]: www.cancer.org Centers for Disease Control and Prevention: www.cdc.gov National Cancer [place]: www.cancer.gov U.S. Department of Health and Human [...] provider. Document Revised: 08/17/2021 Document Reviewed: 02/15/2020 [employer] Patient Education 2022 [employer]. Follow Up Care 07/13/2023 10:02:01 With:LIV MEDEROS, Gio Ryan, URL Address: [facility] [address] [place] [address] When: Unknown [facility] 08[facility]30[facility] Plan note Diagnostic Tests Pending * UTI ([facility]) 12/30/21 [facility] 09-28-2022 Hospital Discharge instructions Follow Up Care 12/30/2021 09:49:55 With:FAITH ADAMS PA-C, URL Address: [address] [place] [address] Business (1) When: only if needed [facility] evaluation noteNo assessment information available [facility] Work Phone: History and physical note Author Jose Gutierrez [facility] December 01, 2022 9:51amNote Date/TimeAugust 2022 9:[address] [address] Gastroenterology H&P Signed Patient: Stacia Park MR#: [id number] : 1955 Acct:[id number] Age/Sex: 67 / F Adm Date: 3 Loc: Room: Type: [facility] Attending Dr: Jose Gutierrez MD Copies to: MD Jose Miguel Sprague DO~ Date of Service: 12/01/2022 HISTORY & PHYSICAL: Patient's history with special attention to the cardiovascular, pulmonary systems and the current problem was reviewed with the patient immediately prior to the procedure. Present medications and doses reviewed in the EMR. Allergies and pertinent laboratory tests were also re viewedat this time in the EMR. The physical [...] Jose Gutierrez MD> 12/01/22 0951 [facility] Work Phone: Hospital course Narrative No data available for this section [facility] Hospital Discharge instructions Additional Instructions DISCHARGE [...] years. -Follow up with PCP. -Office number [phone].[facility] Work Phone: Hospital Discharge instructions No data available for this section [facility] No data available for this section [facility] Summary Purpose Family History No Family History Records Found Relationship Condition Age at Onset Recorded Date/T patricia father Malignant neoplasm of urinary bladder Unk nown Malignant neoplasm of breastUnknownNot SpecifiedMalignant neoplasm of lung Unknown Advance Directives No Advanced Directives Records Found Advance Directive Response Recorded Date/ Time Advance Directives No October 22 3:11pm Chief Complaint and Reason for Visit Chief Complaint abd pain, fecal urge ncy, diahrrea Additional Source Comments Care Team (unrecognized sect ion and content) Team Status: Active Member Role Status Dates Jose Miguel Vaca DO Primary Care Provider Active Team Status: Inactive Member Role Status Dates Jose Miguel Vaca DO Primary Care Provider Active Deisy Sprague ProviderActive INFORMATION SOURCE (unrecogn ized section and content) DATE CREATED AUTHOR 08/12/2022 [facility] DATE CREATED AUTHOR AUTHOR'S ORGANIZ ATION 01/16/2023 [facility] DATE CREATED AUTHOR AUTHOR'S ORGANIZ ATION 08/09/2023 [facility] DATE CREATED AUTHOR AUTHOR'S ORGANIZ ATION 01/04/2024 [facility] DATE CREATED AUTHOR AUTHOR'S ORGANIZ ATION 01/08/2024 [facility] DATE CREATED AUTHOR AUTHOR'S ORGANIZ ATION 10/15/2024 [facility] DATE CREATED AUTHOR AUTHOR'S ORGANIZ ATION 12/08/2024 [facility] DATE CREATED AUTHOR AUTHOR'S ORGANIZ ATION 12/23/2024 [facility] DATE CREATED AUTHOR AUTHOR'S ORGANIZ ATION 12/26/2024 [facility] FOR RECORDS PERTAINING TO PATIENTS WHO ARE [...] BE BASED ON THE PRIMARY CLINICAL RECORDS. [employer] provides no warranty or guarantee of the accuracy or completeness of information in this document.
== END 2025-01-30 09:10 | disposition home or self-care (01) ==
LOC: FHNEUROLOG 09:10
PROVIDERS: PCP Nurse Practitioner Family; Visit Provider Psychiatry & Neurology Neurology
DX: G47.33 Obstructive sleep apnea (adult) (pediatric) (principal); G47.10 Hypersomnia, unspecified; R06.83 Snoring
CPT/HCPCS: G0463